=== PATIENT | female | born 1945 | race Caucasian/White ===

== ENCOUNTER 2020-01-21 11:35 | Inpatient (IN) | payer MEDICARE, MEDICAID ==
[2020-01-21 22:59] VITALS: BP 127/64
[2020-01-22] MEDS ORDERED: Magnesium Hydroxide (MOM) 30 mL UDC PO PRN (00:52)
[2020-01-22] MEDS ORDERED: Maalox 30 mL Cup PO PRN (00:52)
--- NOTE | 2020-01-22 08:33 | History and Physical ---
History of Present Illness - HPI Chief Complaint: Increased hallucinations and change in behavior HPI: 74 y/o female who presents to [facility] ER for change in condition with increased hallucinations, attempts to hit staff, and increased agitation noted bu the nursing staff. While in the ER patient had routine labwork done. Patient has a past medical history of unsteady gait, cognitive communication deficit, dementia, schizophrenia, schizoaffective disorder. Patient was subsequently transferred to [facility] for further evaluation and treatment. Vital Signs: Last Vital Signs Temp Pulse Resp BP 127/64 01/21/20 22:59 Pulse Ox Past Medical History Cardiovascular: Report: HTN Pulmonary: Report: No Pertinent Hx YARD CLERK: Report: No Pertinent Hx GI: Report: No Pertinent Hx Psych: Report: Other (unsteady gait, cognitive communication deficit, dementia, schizophrenia, schizoaffective disorder) Musculoskeletal: Report: No Pertinent Hx Rheumatologic: Report: No pertinent Hx Infectious Disease: Report: No Pertinent Hx Renal/: Report: No Pertinent Hx Endocrine: Report: Hypothyroidism Dermatology: Report: No Pertinent Hx - Past Surgical History Past Surgical History: No pertinent Hx Family Medical History - Family Member Mother History Unknown: Yes Father History Unknown: Yes Social History Smoke: No Alcohol: None Drugs: None Lives: [place]-Way Domestic Violence: Negative - Medications Home Medications: Home Medication Medication Instructions Recorded Type Dextran 70/Hypromellose 1 drop OP QID 01/22/20 History [Artificial Tears Eye Drops] Docusate Sodium 100 mg PO BID 01/22/20 History Levothyroxine [Synthroid] 100 mcg PO QDAC 01/22/20 History Metoprolol Tartrate 25 mg PO BID 01/22/20 History OLANZapine [ZyPREXA] 10 mg PO DAILY 01/22/20 History OLANZapine [ZyPREXA] 10 mg PO HS 01/22/20 History - Allergies Allergies/Adverse Reactions: Allergies Allergy/AdvReac Type Severity Reaction Status Date / Time No Known Allergies Allergy Verified 01/21/20 23:04 Review of Systems - Review of Systems Constitutional: Report: No Significant Eyes: Report: No Significant ENT: Report: No Significant Respiratory: Report: No Significant Cardiovascular: Report: No Significant Gastrointestinal: Report: No Significant Genitourinary: Report: No Significant Musculoskeletal: Report: No Significant Skin: Report: No Significant Neurological: Report: No Significant Physical Exam - Physical Exam HEENT: Report: Ears Nose Throat within normal limits, Pharnyx within normal limits Neck: Report: Within normal limits Cardiovascular Systems: Report: +s1/s2 noted, Regular, Rate and Rhythm Respiratory: Report: Breath Sounds are within normal limits, Clear to Auscultation of lung bravo Abdomen: Report: Non-tender to palpation Back: Report: Inspection of back is within normal limits. Extremities: Report: Non-tender to palpation. Skin: Report: Color of skin is within normal limits Neuro/Psych: Report: Mood affect is within normal limits - Assessment Assessment: psychosis hypertension hypothyroidism unsteady gait cognitive communication deficit dementia schizophrenia schizoaffective disorder - Plan Plan: will admit to [facility] for further evaluation and treatment continue current treatment Cranial Nerve Assessment - CRANIAL NERVES alcohol swab:: Yes Distinguishes movements in peripheral field.:: Yes up, down, sideways:: Yes on forehead, cheeks and chin, chews symmetrically:: Yes FACIAL VII: upper: Frowns Symmetrically:: Yes FACIAL VII: Lower: Smiles Symmetrically:: Yes both ears:: Yes GLOSS-PHARYNGEAL IX: Has gag reflex:: Yes VAGUS X: Can make guttural sounds:: Yes ACCESSORY XI: Shrugs shoulders symmetrically:: Yes tremors or fasciculation's:: Yes - MOTOR spasticity, cogwheel, atrophy, tremor, asterixis, other: Yes - COORDINATION Finger to nose, heel to quinteros, PANCHITO, gait, Romberg: Yes - SENSORY signs, Brudzinski, Kernig, neck rigidity:: Yes - REFLEXES Brachioradials Right:: Yes Brachioradials Left:: Yes Biceps Right:: Yes Biceps Left:: Yes Triceps Right:: Yes Triceps Left:: Yes Knee Right:: Yes Knee Left:: Yes Ankle Right:: Yes Ankle Left:: Yes Babinski Right:: Yes Babinski Left:: Yes
--- NOTE | 2020-01-22 13:16 | History & Physical ---
ADMIT DATE: 01/21/2020 IDENTIFYING INFORMATION: The patient is a 74-year-old female. CHIEF COMPLAINT: The patient is rambling. HISTORY OF PRESENT ILLNESS: The patient was sent from [place] because of irritability, agitation and aggressive behavior. The patient came here after getting medically cleared at [facility]. The patient apparently was medicated prior to coming here. The patient was uncooperative, asking the staff to leave her alone. When I tried talk to her, she was rambling, kept talking about [place], unable to be coherent and participate in meaningful conversation. She is a well-known case. We have been seeing her at [place] for the past few weeks and actually we have to adjust her medication twice in the past 2 weeks because of her agitation and paranoia. The patient is a poor historian. PAST PSYCHIATRIC HISTORY: Schizophrenia, schizoaffective disorder, paranoid schizophrenia, cognitive impairment. The patient has been treated before for psychosis and depression, paranoid schizophrenia, behavioral disturbance and dementia. MEDICAL HISTORY: No known drug allergy. She has hypothyroidism, lack of coordination, hypertension, unsteady on her feet. SOCIAL HISTORY: The patient is unable to give much information because of her psychosis and rambling speech. MENTAL STATUS EXAMINATION: The patient is appropriately dressed, not very groomed. She looked disheveled. She was rambling, unable to participate in a meaningful conversation or make safe plan for self-care, unpredictable, impulsive, unable to test her memory, concentration because of her psychosis. She has been acting aggressive, irritable, had to be redirected many times, was acting violent, unable to test her memory, concentration, unable to answer questions regarding suicide and homicide. Her sleep and appetite, according to the staff varies. Her insight about her illness is poor, does not realize she has a problem. poor judgement with her acting out behavior. IMPRESSION: Schizoaffective disorder, bipolar type, cognitive disorder, not otherwise specified. MEDICAL DIAGNOSIS: Deferred to the medical doctor. ASSETS: She is relatively physically healthy. Negative poor coping skills. PLAN: The patient will be continued with the Zyprexa, adjust the dose, adding Depakote. We will do group therapy, milieu therapy, and individual therapy. ESTIMATED LENGTH OF STAY: 3-7 days. DISCHARGE CRITERIA: Decreasing psychosis, agitation. After discharge, outpatient. JOB# [id number] MILEY
[2020-01-23] MEDS: Levothyroxine 0.1 Mg Tab PO SCH (06:35)
--- NOTE | 2020-01-23 13:08 | General Progress Note ---
Subjective - Review of Systems Service Date: 01/23/20 Subjective: Awake, Alert, no acute distress. Objective - Physical Exam Vitals and I&O: Vital Signs Temp Pulse Resp 18 01/23/20 08:00 BP 127/64 01/21/20 22:59 Pulse Ox Intake & Output 01/22/20 01/23/20 01/23/20 18:59 06:59 18:59 Intake Total 960 Balance 960 Intake: Oral 960 Other: # Voids 4 # Bowel Movements 1 Active Medications: Current Medications Acetaminophen (Tylenol) 650 mg PO Q4H PRN PRN Reason: Pain (Mild 1-3) Stop: 03/22/20 00:51 Al Hydrox/Mg Hydrox/Simethicone (Maalox) 30 ml PO Q4HR PRN PRN Reason: GI DISTRESS Stop: 03/22/20 00:51 Levothyroxine Sodium (Synthroid) 0.1 mg PO QDAC [facility] Stop: 03/23/20 07:29 Last Admin: 01/23/20 06:35 Dose: Not Given Lorazepam (Ativan) 0.5 mg PO Q4HR PRN; Protocol PRN Reason: anxiety/agitation Stop: 02/21/20 00:51 Last Admin: 01/23/20 02:27 Dose: 0.5 mg Magnesium Hydroxide (Milk Of Magnesia) 30 ml PO HS PRN PRN Reason: Constipation Metoprolol Tartrate (Lopressor) 25 mg PO BID [facility] Stop: 03/22/20 08:59 Last Admin: 01/23/20 09:18 Dose: Not Given Olanzapine (Zyprexa) 10 mg PO DAILY [facility]; Protocol Stop: 03/22/20 12:44 Last Admin: 01/23/20 09:16 Dose: Not Given Olanzapine (Zyprexa) 10 mg PO HS [facility]; Protocol Stop: 03/22/20 20:59 Last Admin: 01/22/20 20:42 Dose: Not Given Valproate Sodium (Depakene) 250 mg PO BID [facility]; Protocol Stop: 03/22/20 16:59 Last Admin: 01/23/20 09:15 Dose: Not Given General: Alert, No acute distress HEENT: Atraumatic, PERRLA Neck: Supple Cardiovascular: Regular rate, Normal S1, Normal S2 Lungs: Clear to auscultation Abdomen: Bowel sounds, Soft Extremities: no Clubbing, no Cyanosis, no Edema Neurological: Normal gait Assessment/Plan - Assessment Assessment: psychosis hypertension hypothyroidism unsteady gait cognitive communication deficit dementia schizophrenia schizoaffective disorder - Plan Plan: will admit to [facility] for further evaluation and treatment continue current treatment
--- NOTE | 2020-01-23 22:53 | Psych Progress Note ---
Psych Progress Note - Intro Date of Progress Note: 01/23/20 - Assessment Assessment: patient interviewed, case discussed with staff, chart and records were reviewed. patient remains disorganized making delusional odd stateements and refusing treatment including refusing medications. uncooperative with interview. disheveled appearing. poor insight and no plan for care. - Vitals, I&O Vitals: Vital Signs - 24 hr 01/23/20 08:00 RR 18 - Objective Psych General Appearance: Report: Disheveled Psych Behavior: Report: Restless Psych Speech: Report: Mumbled Psych Mood: Report: Angry Psych Affect: Report: Labile Psych Thought Process: Report: Paranoid Psych Cognition: Report: Confused Psych Insight: Report: Impaired Psych Judgement: Report: Impaired - Plan Plan: consider [facility] petition. encouraged medication adherence and gropus. - Review of Relevant Data Review of Relevant Data: I have reviewed the following items and time agnieszka (where applicable) has been applied. - Medications Current Medications: Current Medications Acetaminophen (Tylenol) 650 mg PO Q4H PRN PRN Reason: Pain (Mild 1-3) Stop: 03/22/20 00:51 Al Hydrox/Mg Hydrox/Simethicone (Maalox) 30 ml PO Q4HR PRN PRN Reason: GI DISTRESS Stop: 03/22/20 00:51 Levothyroxine Sodium (Synthroid) 0.1 mg PO QDAC [facility] Stop: 03/23/20 07:29 Last Admin: 01/23/20 06:35 Dose: Not Given Lorazepam (Ativan) 0.5 mg PO Q4HR PRN; Protocol PRN Reason: anxiety/agitation Stop: 02/21/20 00:51 Last Admin: 01/23/20 21:09 Dose: 0.5 mg Magnesium Hydroxide (Milk Of Magnesia) 30 ml PO HS PRN PRN Reason: Constipation Metoprolol Tartrate (Lopressor) 25 mg PO BID [facility] Stop: 03/22/20 08:59 Last Admin: 01/23/20 16:51 Dose: Not Given Olanzapine (Zyprexa) 10 mg PO DAILY COUNTS [facility]CLUDE 234 BEDS AT [facility]; Protocol Stop: 03/22/20 12:44 Last Admin: 01/23/20 09:16 Dose: Not Given Olanzapine (Zyprexa) 10 mg PO HS [facility]; Protocol Stop: 03/22/20 20:59 Last Admin: 01/23/20 21:08 Dose: 10 mg Valproate Sodium (Depakene) 250 mg PO BID COUNTS INCLUDE 234 BEDS AT THE [facility]; Protocol Stop: 03/22/20 16:59 Last Admin: 01/23/20 16:52 Dose: Not Given
[2020-01-24] MEDS: Levothyroxine 0.1 Mg Tab PO SCH (06:46)
--- NOTE | 2020-01-24 07:57 | General Progress Note ---
Subjective - Review of Systems Service Date: 01/24/20 Subjective: Awake, Alert, no acute distress. T 97.2 P 81 R 20 BP 144/70 Objective - Physical Exam Vitals and I&O: Vital Signs Temp 97.2 F 01/24/20 06:10 Pulse 81 01/24/20 06:10 Resp 20 01/24/20 06:10 BP 144/70 01/24/20 06:10 Pulse Ox 99 01/24/20 06:10 Intake & Output 01/23/20 01/24/20 01/24/20 18:59 06:59 18:59 Intake Total 660 Balance 660 Intake: Oral 660 Other: # Voids 1 Active Medications: Current Medications Acetaminophen (Tylenol) 650 mg PO Q4H PRN PRN Reason: Pain (Mild 1-3) Stop: 03/22/20 00:51 Al Hydrox/Mg Hydrox/Simethicone (Maalox) 30 ml PO Q4HR PRN PRN Reason: GI DISTRESS Stop: 03/22/20 00:51 Levothyroxine Sodium (Synthroid) 0.1 mg PO QDAC [facility] Stop: 03/23/20 07:29 Last Admin: 01/24/20 06:46 Dose: Not Given Lorazepam (Ativan) 0.5 mg PO Q4HR PRN; Protocol PRN Reason: anxiety/agitation Stop: 02/21/20 00:51 Last Admin: 01/23/20 21:09 Dose: 0.5 mg Magnesium Hydroxide (Milk Of Magnesia) 30 ml PO HS PRN PRN Reason: Constipation Metoprolol Tartrate (Lopressor) 25 mg PO BID [facility] Stop: 03/22/20 08:59 Last Admin: 01/23/20 16:51 Dose: Not Given Olanzapine (Zyprexa) 10 mg PO DAILY [facility]; Protocol Stop: 03/22/20 12:44 Last Admin: 01/23/20 09:16 Dose: Not Given Olanzapine (Zyprexa) 10 mg PO HS [facility]; Protocol Stop: 03/22/20 20:59 Last Admin: 01/23/20 21:08 Dose: 10 mg Valproate Sodium (Depakene) 250 mg PO BID [facility]; Protocol Stop: 03/22/20 16:59 Last Admin: 01/23/20 16:52 Dose: Not Given General: Alert, No acute distress HEENT: Atraumatic, PERRLA Neck: Supple Cardiovascular: Regular rate, Normal S1, Normal S2 Lungs: Clear to auscultation Abdomen: Bowel sounds, Soft Extremities: no Clubbing, no Cyanosis, no Edema Neurological: Normal gait Assessment/Plan - Assessment Assessment: psychosis hypertension hypothyroidism unsteady gait cognitive communication deficit dementia schizophrenia schizoaffective disorder - Plan Plan: will admit to [facility] for further evaluation and treatment continue current treatment will add Clonidine 0.1mg for BP control.
--- NOTE | 2020-01-24 22:33 | Psych Progress Note ---
Psych Progress Note - Intro Date of Progress Note: 01/24/20 - Assessment Assessment: patient interviewed, case discussed with staff, chart and records were reviewed. patient remains disorganized making delusional odd stateements and refusing treatment including refusing medications. uncooperative with interview. begins cursing at this provider "f*ck you!" disheveled appearing. poor insight and no plan for care. - Vitals, I&O Vitals: Vital Signs - 24 hr 01/24/20 01/24/20 01/24/20 06:10 08:00 10:00 Temp 97.2 F HR 81 74 RR 20 18 BP 144/70 150/60 O2 Sat % 99 01/24/20 01/24/20 14:00 20:32 Temp 98.0 F 98.4 F HR 100 103 RR 20 20 BP 152/82 141/87 O2 Sat % 97 98 - Objective Psych General Appearance: Report: Disheveled Psych Behavior: Report: Restless Psych Speech: Report: Mumbled Psych Mood: Report: Angry Psych Affect: Report: Labile Psych Thought Process: Report: Paranoid Psych Cognition: Report: Confused Psych Insight: Report: Impaired Psych Judgement: Report: Impaired - Plan Plan: 14 day hold. consider [facility] petition. encouraged medication adherence and gropus. - Review of Relevant Data Review of Relevant Data: I have reviewed the following items and time agnieszka (where applicable) has been applied. - Medications Current Medications: Current Medications Acetaminophen (Tylenol) 650 mg PO Q4H PRN PRN Reason: Pain (Mild 1-3) Stop: 03/22/20 00:51 Al Hydrox/Mg Hydrox/Simethicone (Maalox) 30 ml PO Q4HR PRN PRN Reason: GI DISTRESS Stop: 03/22/20 00:51 Levothyroxine Sodium (Synthroid) 0.1 mg PO QDAC [facility] Stop: 03/23/20 07:29 Last Admin: 01/24/20 06:46 Dose: Not Given Lorazepam (Ativan) 0.5 mg PO Q4HR PRN; Protocol PRN Reason: anxiety/agitation Stop: 02/21/20 00:51 Last Admin: 01/24/20 21:00 Dose: 0.5 mg Magnesium Hydroxide (Milk Of Magnesia) 30 ml PO HS PRN PRN Reason: Constipation Metoprolol Tartrate (Lopressor) 25 mg PO BID [facility] Stop: 03/22/20 08:59 Last Admin: 01/24/20 10:00 Dose: Not Given Olanzapine (Zyprexa) 10 mg PO DAILY [facility]; Protocol Stop: 03/22/20 12:44 Last Admin: 01/24/20 10:00 Dose: Not Given Olanzapine (Zyprexa) 10 mg PO HS [facility]; Protocol Stop: 03/22/20 20:59 Last Admin: 01/24/20 20:59 Dose: 10 mg Valproate Sodium (Depakene) 250 mg PO BID [facility]; Protocol Stop: 03/22/20 16:59 Last Admin: 01/24/20 10:00 Dose: Not Given
[2020-01-25] MEDS: Levothyroxine 0.1 Mg Tab PO SCH (06:32)
--- NOTE | 2020-01-25 07:54 | General Progress Note ---
Subjective - Review of Systems Service Date: 01/25/20 Subjective: Awake, Alert, no acute distress. still confused. refusing medication T 97.4 P 81 R 19 BP 145/87 Objective - Physical Exam Vitals and I&O: Vital Signs Temp 97.4 F 01/25/20 06:47 Pulse 81 01/25/20 06:47 Resp 19 01/25/20 06:47 BP 145/87 01/25/20 06:47 Pulse Ox 97 01/25/20 06:47 Intake & Output 01/24/20 01/25/20 01/25/20 18:59 06:59 18:59 Intake Total 900 440 Balance 900 440 Intake: Oral 900 440 Other: # Voids 3 3 # Bowel Movements 1 0 Active Medications: Current Medications Acetaminophen (Tylenol) 650 mg PO Q4H PRN PRN Reason: Pain (Mild 1-3) Stop: 03/22/20 00:51 Al Hydrox/Mg Hydrox/Simethicone (Maalox) 30 ml PO Q4HR PRN PRN Reason: GI DISTRESS Stop: 03/22/20 00:51 Levothyroxine Sodium (Synthroid) 0.1 mg PO QDAC [facility] Stop: 03/23/20 07:29 Last Admin: 01/25/20 06:32 Dose: Not Given Lorazepam (Ativan) 0.5 mg PO Q4HR PRN; Protocol PRN Reason: anxiety/agitation Stop: 02/21/20 00:51 Last Admin: 01/24/20 21:00 Dose: 0.5 mg Magnesium Hydroxide (Milk Of Magnesia) 30 ml PO HS PRN PRN Reason: Constipation Metoprolol Tartrate (Lopressor) 25 mg PO BID [facility] Stop: 03/22/20 08:59 Last Admin: 01/24/20 10:00 Dose: Not Given Olanzapine (Zyprexa) 10 mg PO DAILY [facility]; Protocol Stop: 03/22/20 12:44 Last Admin: 01/24/20 10:00 Dose: Not Given Olanzapine (Zyprexa) 10 mg PO HS [facility]; Protocol Stop: 03/22/20 20:59 Last Admin: 01/24/20 20:59 Dose: 10 mg Valproate Sodium (Depakene) 250 mg PO BID [facility]; Protocol Stop: 03/22/20 16:59 Last Admin: 01/24/20 10:00 Dose: Not Given General: Alert, No acute distress HEENT: Atraumatic, PERRLA Neck: Supple Cardiovascular: Regular rate, Normal S1, Normal S2 Lungs: Clear to auscultation Abdomen: Bowel sounds, Soft Extremities: no Clubbing, no Cyanosis, no Edema Neurological: Normal gait Assessment/Plan - Assessment Assessment: psychosis hypertension slightly elevated hypothyroidism unsteady gait cognitive communication deficit dementia schizophrenia schizoaffective disorder - Plan Plan: will admit to [facility] for further evaluation and treatment continue current treatment
[2020-01-25] MEDS ORDERED: Haloperidol Lactate 5 mg/mL 1mL Vial ONE (13:21)
[2020-01-25] MEDS ORDERED: Haloperidol Lactate 5 mg/mL 1mL Vial IM ONE (13:33)
[2020-01-25] MEDS ORDERED: Haloperidol Lactate 5 mg/mL 1mL Vial IM PRN (13:43)
--- NOTE | 2020-01-26 05:04 | Progress Notes ---
DATE: 01/25/2020 SUBJECTIVE: Case was discussed with staff of the patient, reviewed records. The patient continues to be very irritable, shouting, yelling, screaming. She came after me and I slammed the door after a while when I talking to other patients, she is very intrusive, irritable, paranoid, very disorganized, unable to participate in meaningful conversation, refusing medication. She is refusing so far in the last 2 days. She had to be given emergency medication today because of her agitated, violent behavior. She was given Haldol 5 mg with Benadryl 25. The patient is currently on Zyprexa 10 mg at bedtime and Depakote, valproic acid 250 mg twice a day; however, she has been refusing medication according to the staff, she continues to be agitated and refusing her medication. We will continue outpatient group therapy, milieu therapy, and adjust medications as needed. JOB# [id number] MILEY
[2020-01-26] MEDS: Levothyroxine 0.1 Mg Tab PO SCH (06:32)
--- NOTE | 2020-01-26 07:26 | General Progress Note ---
Subjective - Review of Systems Service Date: 01/26/20 Subjective: Awake, Alert, no acute distress. still confused. refusing medication T 96.9 P 82 R 20 BP 143/66 Objective - Physical Exam Vitals and I&O: Vital Signs Temp 96.9 F 01/26/20 06:19 Pulse 82 01/26/20 06:19 Resp 20 01/26/20 06:19 BP 143/66 01/26/20 06:19 Pulse Ox 99 01/26/20 06:19 Intake & Output 01/25/20 01/26/20 01/26/20 18:59 06:59 18:59 Intake Total 960 560 Balance 960 560 Intake: Oral 960 560 Other: # Voids 3 1 # Bowel Movements 1 Active Medications: Current Medications Acetaminophen (Tylenol) 650 mg PO Q4H PRN PRN Reason: Pain (Mild 1-3) Stop: 03/22/20 00:51 Al Hydrox/Mg Hydrox/Simethicone (Maalox) 30 ml PO Q4HR PRN PRN Reason: GI DISTRESS Stop: 03/22/20 00:51 Diphenhydramine HCl (Benadryl 50 Mg/Ml) 25 mg IM BID PRN PRN Reason: EPS, GIVE WITH HALDOL IM Stop: 03/25/20 13:47 Haloperidol Lactate (Haldol) 5 mg IM BID PRN PRN Reason: Agitation Stop: 03/25/20 13:42 Levothyroxine Sodium (Synthroid) 0.1 mg PO QDAC [facility] Stop: 03/23/20 07:29 Last Admin: 01/26/20 06:32 Dose: Not Given Lorazepam (Ativan) 0.5 mg PO Q4HR PRN; Protocol PRN Reason: anxiety/agitation Stop: 02/21/20 00:51 Last Admin: 01/25/20 20:30 Dose: 0.5 mg Magnesium Hydroxide (Milk Of Magnesia) 30 ml PO HS PRN PRN Reason: Constipation Metoprolol Tartrate (Lopressor) 25 mg PO BID [facility] Stop: 03/22/20 08:59 Last Admin: 01/25/20 18:08 Dose: Not Given Olanzapine (Zyprexa) 10 mg PO DAILY [facility]; Protocol Stop: 03/22/20 12:44 Last Admin: 01/25/20 09:37 Dose: Not Given Olanzapine (Zyprexa) 10 mg PO HS [facility]; Protocol Stop: 03/22/20 20:59 Last Admin: 01/25/20 20:30 Dose: 10 mg Valproate Sodium (Depakene) 250 mg PO BID [facility]; Protocol Stop: 03/22/20 16:59 Last Admin: 01/25/20 18:09 Dose: Not Given General: Alert, No acute distress HEENT: Atraumatic, PERRLA Neck: Supple Cardiovascular: Regular rate, Normal S1, Normal S2 Lungs: Clear to auscultation Abdomen: Bowel sounds, Soft Extremities: no Clubbing, no Cyanosis, no Edema Neurological: Normal gait Assessment/Plan - Assessment Assessment: psychosis hypertension slightly elevated hypothyroidism unsteady gait cognitive communication deficit dementia schizophrenia schizoaffective disorder - Plan Plan: will admit to [facility] for further evaluation and treatment continue current treatment
--- NOTE | 2020-01-26 13:16 | Progress Notes ---
DATE: 01/26/2020 Case was discussed with staff of these records. The patient had to be medicated yesterday on an emergency basis because of her aggressive behavior. The patient end up getting emergency medication later, she is now took her medication. Apparently, the patient will take her medications only from a white person, so it seemed like the staff, so it happens now she is compliant. She is on Zyprexa 10 mg at bedtime and in the morning no side effects with the medication, no sedation, no nausea, no extrapyramidal symptoms. Also, valproic acid was added and we will continue to work with the patient in group therapy, milieu therapy, adjust medication as needed. JOB# [id number]
[2020-01-27] MEDS: Levothyroxine 0.1 Mg Tab PO SCH (06:59)
--- NOTE | 2020-01-27 09:03 | General Progress Note ---
Subjective - Review of Systems Service Date: 01/27/20 Subjective: Awake, Alert, no acute distress. still confused. refusing medication T 96.9 P 82 R 20 BP 143/66 Objective - Physical Exam Vitals and I&O: Vital Signs Temp 0 F 01/27/20 06:08 Pulse 78 01/26/20 20:05 Resp 16 01/27/20 07:58 BP 142/77 01/26/20 20:05 Pulse Ox 95 01/26/20 20:05 Intake & Output 01/26/20 01/27/20 01/27/20 18:59 06:59 18:59 Intake Total 900 240 Balance 900 240 Intake: Oral 900 240 Other: # Voids 3 # Bowel Movements 0 Active Medications: Current Medications Acetaminophen (Tylenol) 650 mg PO Q4H PRN PRN Reason: Pain (Mild 1-3) Stop: 03/22/20 00:51 Al Hydrox/Mg Hydrox/Simethicone (Maalox) 30 ml PO Q4HR PRN PRN Reason: GI DISTRESS Stop: 03/22/20 00:51 Levothyroxine Sodium (Synthroid) 0.1 mg PO QDAC [facility] Stop: 03/23/20 07:29 Last Admin: 01/27/20 06:59 Dose: Not Given Lorazepam (Ativan) 0.5 mg PO Q4HR PRN; Protocol PRN Reason: anxiety/agitation Stop: 02/21/20 00:51 Last Admin: 01/26/20 16:29 Dose: 0.5 mg Magnesium Hydroxide (Milk Of Magnesia) 30 ml PO HS PRN PRN Reason: Constipation Metoprolol Tartrate (Lopressor) 25 mg PO BID [facility] Stop: 03/22/20 08:59 Last Admin: 01/26/20 16:31 Dose: 25 mg Olanzapine (Zyprexa) 10 mg PO DAILY [facility]; Protocol Stop: 03/22/20 12:44 Last Admin: 01/26/20 08:38 Dose: 10 mg Olanzapine (Zyprexa) 10 mg PO HS [facility]; Protocol Stop: 03/22/20 20:59 Last Admin: 01/26/20 20:35 Dose: 10 mg Valproate Sodium (Depakene) 250 mg PO BID [facility]; Protocol Stop: 03/22/20 16:59 Last Admin: 01/26/20 16:29 Dose: 250 mg General: Alert, No acute distress HEENT: Atraumatic, PERRLA Neck: Supple Cardiovascular: Regular rate, Normal S1, Normal S2 Lungs: Clear to auscultation Abdomen: Bowel sounds, Soft Extremities: no Clubbing, no Cyanosis, no Edema Neurological: Normal gait Assessment/Plan - Assessment Assessment: psychosis hypertension slightly elevated hypothyroidism unsteady gait cognitive communication deficit dementia schizophrenia schizoaffective disorder - Plan Plan: will admit to [facility] for further evaluation and treatment continue current treatment Nutritional Asmnt/Malnutr-PDOC - Dietary Evaluation Malnutrition Findings (Please click <Entered> for more info): Nutritional Asmnt/Malnutrition Start: 01/26/20 14: 36 Text: Status: Complete Freq: Protocol: Document 01/26/20 14:36 SHALOM (Rec: 01/26/20 14:51 SHALOM [id number]) Nutritional Asmnt/Malnutrition Patient General Information Nutritional Screening Low Risk Diagnosis Psychosis Pertinent Medical Hx/Surgical Hx Hypothyroidism, lack of coordination, hypertension, unsteady on feet. Subjective Information Pt is a 74-year-old female admitted on d/t agitation, irritability, and aggressive behavior. Pt is eating an estimated 77% of meals Per Meal/Nutrition Activity Record. Dietary is currently providing an estimated 2300 kcals and 106 gm Pro, per Pt PO intake this is providing an estimated 1770 kcals and 82 gm Pro to meet 100+% kcal and 100+% Pro needs . Per Meal/Nutrition Activity report, pt. refused breakfast and lunch 01/24 but ate 100% of dinner. Per nurse Negin note (01/24), pt. also refused medication and was noted with non-directable behavior, hyperverbal and confused Pt s refusal of meals morning of 01/24 possibly related to notes paranoid behavior. Pt was asleep in room at time of visit. Christy seen pt roaming the halls in passing, very active and talkative. Anthropometrics HT: 54 WT: 136 LB (61.81 kg) BMI: 23.49 (Normal) GI/ Skin Integrity GI: WNL, Soft, Flat, Non- tender BM: 01/24 x4 I/O: 1520/Not Noted Skin: WNL, Intact Timoteo: 17 Diet Order: Chopped, LOI Estimated Energy Needs: ( Geriatric, CBW) 8207-9187 kcals (25-30 kcals/ kg) 60-75g Pro (1.0-1.2 g/kg) 3012-9021 ml (25-30 ml/kg) Current Diet Order/ Nutrition Support Chopped, LOI Pertinent Medications Maalox (PRN), Synthroid, MOM ( PRN), Lopressor Pertinent Labs 01/20: A1C 6.1%, Glucose 119, K 3.2, T Pro 6.0 Nutritional Hx/Data Height 1.63 m Height (Calculated Centimeters) 162.6 Current Weight (lbs) 62.142 kg Weight (Calculated Kilograms) 62.1 Weight (Calculated Grams) 04963.2 [place] Body Weight 120 LB % [place] Body Weight 113 Body Mass Index (BMI) 23.5 Weight Status Approriate GI Symptoms GI Symptoms None Last BM 01/24 x4 Skin Integrity/Comment: Skin: WNL, Intact Timoteo: 17 Current %PO Good (75-100%) Estimated Nutritional Goals BEE in Kcals: Using Current wt Calories/Kcals/Kg 25-30 Kcals Calculated 9090-7935 Protein: Using Current wt Protein g/k.0-1.2 Protein Calculated 60-75 Fluid: ml 7241-5506 ml (25-30 ml/kg) Nutritional Problem 1. Problem Problem Altered nutrition-related lab values Etiology related to endocrinopathy Signs/Symptoms: as evidenced by labs (01/20 A1C 6.1%). Malnutrition Related to Morbid Obesity Malnutrition related to morbid obesity No Intervention/Recommendation Comments Continue Chopped, LOI diet as tolerated. Expected Outcomes/Goals Expected Outcomes/Goals 1.PO intake to continue to meet 75% of estimated nutritional needs. 2.Monitor PO intake, wt, nutrition related labs, and skin integrity. 3.F/U as low risk in 7-10 days , 02/01-02/04.
--- NOTE | 2020-01-27 21:35 | Progress Notes ---
DATE: 01/27/2020 Case was discussed with staff of the patient, reviewed records. The patient has been taking her medication and resuming is given by in person. The patient continues to be internally preoccupied, irritable, labile, talking to herself, unpredictable, impulsive, needing redirection. She has been compliant with the medication with no side effects, no sedation, no nausea, no extrapyramidal symptoms. She seems to be a little bit calmer now that she is taking the medication; however, she continues to be paranoid and delusional. No side effects with the medication, no sedation, no nausea, no extrapyramidal symptoms. We will continue outpatient group therapy, milieu therapy, and adjust medications as needed. JOB# [id number]
[2020-01-28] MEDS: Levothyroxine 0.1 Mg Tab PO SCH (07:25)
--- NOTE | 2020-01-28 11:56 | General Progress Note ---
Subjective - Review of Systems Service Date: 01/28/20 Subjective: Awake, Alert, no acute distress. still confused. refusing medication T 97.9 P 114 R 20 BP 162/85 Objective - Physical Exam Vitals and I&O: Vital Signs Temp 97.9 F 01/28/20 06:25 Pulse 114 01/28/20 08:44 Resp 16 01/28/20 08:00 BP 162/85 01/28/20 08:44 Pulse Ox 96 01/28/20 06:25 Intake & Output 01/27/20 01/28/20 01/28/20 18:59 06:59 18:59 Intake Total 800 120 Balance 800 120 Intake: Oral 800 120 Other: # Voids 4 1 # Bowel Movements 0 0 Active Medications: Current Medications Acetaminophen (Tylenol) 650 mg PO Q4H PRN PRN Reason: Pain (Mild 1-3) Stop: 03/22/20 00:51 Al Hydrox/Mg Hydrox/Simethicone (Maalox) 30 ml PO Q4HR PRN PRN Reason: GI DISTRESS Stop: 03/22/20 00:51 Levothyroxine Sodium (Synthroid) 0.1 mg PO QDAC [facility] Stop: 03/23/20 07:29 Last Admin: 01/28/20 07:25 Dose: Not Given Lorazepam (Ativan) 0.5 mg PO Q4HR PRN; Protocol PRN Reason: anxiety/agitation Stop: 02/21/20 00:51 Last Admin: 01/26/20 16:29 Dose: 0.5 mg Magnesium Hydroxide (Milk Of Magnesia) 30 ml PO HS PRN PRN Reason: Constipation Metoprolol Tartrate (Lopressor) 25 mg PO BID [facility] Stop: 03/22/20 08:59 Last Admin: 01/28/20 08:44 Dose: 25 mg Olanzapine (Zyprexa) 10 mg PO DAILY [facility]; Protocol Stop: 03/22/20 12:44 Last Admin: 01/28/20 08:45 Dose: 10 mg Olanzapine (Zyprexa) 10 mg PO HS [facility]; Protocol Stop: 03/22/20 20:59 Last Admin: 01/27/20 21:10 Dose: 10 mg Valproate Sodium (Depakene) 250 mg PO BID [facility]; Protocol Stop: 03/22/20 16:59 Last Admin: 01/28/20 08:43 Dose: 250 mg General: Alert, No acute distress HEENT: Atraumatic, PERRLA Neck: Supple Cardiovascular: Regular rate, Normal S1, Normal S2 Lungs: Clear to auscultation Abdomen: Bowel sounds, Soft Extremities: no Clubbing, no Cyanosis, no Edema Neurological: Normal gait Assessment/Plan - Assessment Assessment: psychosis hypertension elevated hypothyroidism unsteady gait cognitive communication deficit dementia schizophrenia schizoaffective disorder - Plan Plan: will admit to [facility] for further evaluation and treatment continue current treatment add clonidine prn start norvasc 5mg po daily Nutritional Asmnt/Malnutr-PDOC - Dietary Evaluation Malnutrition Findings (Please click <Entered> for more info): Nutritional Asmnt/Malnutrition Start: 01/26/20 14: 36 Text: Status: Complete Freq: Protocol: Document 01/26/20 14:36 SHALOM (Rec: 01/26/20 14:51 SHALOM [id number]) Nutritional Asmnt/Malnutrition Patient General Information Nutritional Screening Low Risk Diagnosis Psychosis Pertinent Medical Hx/Surgical Hx Hypothyroidism, lack of coordination, hypertension, unsteady on feet. Subjective Information Pt is a 74-year-old female admitted on d/t agitation, irritability, and aggressive behavior. Pt is eating an estimated 77% of meals Per Meal/Nutrition Activity Record. Dietary is currently providing an estimated 2300 kcals and 106 gm Pro, per Pt PO intake this is providing an estimated 1770 kcals and 82 gm Pro to meet 100+% kcal and 100+% Pro needs . Per Meal/Nutrition Activity report, pt. refused breakfast and lunch 01/24 but ate 100% of dinner. Per nurse Negin note (01/24), pt. also refused medication and was noted with non-directable behavior, hyperverbal and confused Pt s refusal of meals morning of 01/24 possibly related to notes paranoid behavior. Pt was asleep in room at time of visit. Christy seen pt roaming the halls in passing, very active and talkative. Anthropometrics HT: 54 WT: 136 LB (61.81 kg) BMI: 23.49 (Normal) GI/ Skin Integrity GI: WNL, Soft, Flat, Non- tender BM: 01/24 x4 I/O: 1520/Not Noted Skin: WNL, Intact Timoteo: 17 Diet Order: Chopped, LOI Estimated Energy Needs: ( Geriatric, CBW) 4620-7816 kcals (25-30 kcals/ kg) 60-75g Pro (1.0-1.2 g/kg) 0176-3204 ml (25-30 ml/kg) Current Diet Order/ Nutrition Support Chopped, LOI Pertinent Medications Maalox (PRN), Synthroid, MOM ( PRN), Lopressor Pertinent Labs 01/20: A1C 6.1%, Glucose 119, K 3.2, T Pro 6.0 Nutritional Hx/Data Height 1.63 m Height (Calculated Centimeters) 162.6 Current Weight (lbs) 62.142 kg Weight (Calculated Kilograms) 62.1 Weight (Calculated Grams) 70414.2 [place] Body Weight 120 LB % [place] Body Weight 113 Body Mass Index (BMI) 23.5 Weight Status Approriate GI Symptoms GI Symptoms None Last BM 01/24 x4 Skin Integrity/Comment: Skin: WNL, Intact Timoteo: 17 Current %PO Good (75-100%) Estimated Nutritional Goals BEE in Kcals: Using Current wt Calories/Kcals/Kg 25-30 Kcals Calculated 6449-8945 Protein: Using Current wt Protein g/k.0-1.2 Protein Calculated 60-75 Fluid: ml 6551-4999 ml (25-30 ml/kg) Nutritional Problem 1. Problem Problem Altered nutrition-related lab values Etiology related to endocrinopathy Signs/Symptoms: as evidenced by labs (01/20 A1C 6.1%). Malnutrition Related to Morbid Obesity Malnutrition related to morbid obesity No Intervention/Recommendation Comments Continue Chopped, LOI diet as tolerated. Expected Outcomes/Goals Expected Outcomes/Goals 1.PO intake to continue to meet 75% of estimated nutritional needs. 2.Monitor PO intake, wt, nutrition related labs, and skin integrity. 3.F/U as low risk in 7-10 days , 02/01-02/04.
--- NOTE | 2020-01-28 14:01 | Progress Notes ---
DATE: 01/28/2020 FOLLOWUP PROGRESS NOTE Case was discussed with staff of the patient, reviewed records. The patient refused medication last night; however, sometimes she takes it, so I cannot release her yet. The patient continues to be unpredictable, impulsive, easily agitated, unable to make safe plan for self-care or participate in meaningful conversation. No side effects with the medication, no sedation, no nausea, no extrapyramidal symptoms and I added Depakote to her. We will continue to work with the patient in group therapy, milieu therapy and adjust the medication as needed. JOB# [id number]
[2020-01-29] MEDS: Levothyroxine 0.1 Mg Tab PO SCH (06:32)
--- NOTE | 2020-01-29 13:52 | Progress Notes ---
DATE: 01/29/2020 Case was discussed with staff of the patient, reviewed records. The patient is taking her medication. Continues to be irritable, continues to be acting bizarre, internally preoccupied. Continues to be unable to make safe plan for self-care, unpredictable, impulsive, needing redirection. I will be increasing her Zyprexa to 12.5 mg at bedtime. No side effects with the medication, no sedation, no nausea, no extrapyramidal symptoms and will continue to have constricted affect, angry aspect. Continues to be unpredictable, impulsive. Will continue outpatient group therapy, milieu therapy, and adjust medications as needed. JOB# [id number]
--- NOTE | 2020-01-29 17:24 | General Progress Note ---
Subjective - Review of Systems Service Date: 01/29/20 Subjective: Awake, Alert, no acute distress. still confused. refusing medication T 97.9 P 62 R 20 BP 116/62 Objective - Physical Exam Vitals and I&O: Vital Signs Temp 98.5 F 01/29/20 06:38 Pulse 62 01/29/20 17:08 Resp 20 01/29/20 06:38 BP 116/62 01/29/20 17:08 Pulse Ox 100 01/29/20 06:38 Intake & Output 01/28/20 01/29/20 01/29/20 18:59 06:59 18:59 Intake Total 800 120 Balance 800 120 Intake: Oral 800 120 Other: # Voids 4 3 # Bowel Movements 1 Active Medications: Current Medications Acetaminophen (Tylenol) 650 mg PO Q4H PRN PRN Reason: Pain (Mild 1-3) Stop: 03/22/20 00:51 Al Hydrox/Mg Hydrox/Simethicone (Maalox) 30 ml PO Q4HR PRN PRN Reason: GI DISTRESS Stop: 03/22/20 00:51 Amlodipine Besylate (Norvasc) 5 mg PO DAILY [facility] Stop: 03/29/20 08:59 Last Admin: 01/29/20 09:19 Dose: 5 mg Levothyroxine Sodium (Synthroid) 0.1 mg PO QDAC [facility] Stop: 03/23/20 07:29 Last Admin: 01/29/20 06:32 Dose: Not Given Lorazepam (Ativan) 0.5 mg PO Q4HR PRN; Protocol PRN Reason: anxiety/agitation Stop: 02/21/20 00:51 Last Admin: 01/26/20 16:29 Dose: 0.5 mg Magnesium Hydroxide (Milk Of Magnesia) 30 ml PO HS PRN PRN Reason: Constipation Metoprolol Tartrate (Lopressor) 25 mg PO BID [facility] Stop: 03/22/20 08:59 Last Admin: 01/29/20 17:08 Dose: 25 mg Olanzapine (Zyprexa) 10 mg PO DAILY [facility]; Protocol Stop: 03/22/20 12:44 Last Admin: 01/29/20 09:19 Dose: 10 mg Olanzapine 10 mg/ Olanzapine 2 (.5 mg) 12.5 mg PO HS [facility] Stop: 03/29/20 20:59 Valproate Sodium (Depakene) 250 mg PO BID [facility]; Protocol Stop: 03/22/20 16:59 Last Admin: 01/29/20 17:06 Dose: 250 mg General: Alert, No acute distress HEENT: Atraumatic, PERRLA Neck: Supple Cardiovascular: Regular rate, Normal S1, Normal S2 Lungs: Clear to auscultation Abdomen: Bowel sounds, Soft Extremities: no Clubbing, no Cyanosis, no Edema Neurological: Normal gait Assessment/Plan - Assessment Assessment: psychosis hypertension improving hypothyroidism unsteady gait cognitive communication deficit dementia schizophrenia schizoaffective disorder - Plan Plan: will admit to [facility] for further evaluation and treatment continue current treatment add clonidine prn start norvasc 5mg po daily Nutritional Asmnt/Malnutr-PDOC - Dietary Evaluation Malnutrition Findings (Please click <Entered> for more info): Nutritional Asmnt/Malnutrition Start: 01/26/20 14: 36 Text: Status: Complete Freq: Protocol: Document 01/26/20 14:36 SHALOM (Rec: 01/26/20 14:51 SHALOM [id number]) Nutritional Asmnt/Malnutrition Patient General Information Nutritional Screening Low Risk Diagnosis Psychosis Pertinent Medical Hx/Surgical Hx Hypothyroidism, lack of coordination, hypertension, unsteady on feet. Subjective Information Pt is a 74-year-old female admitted on d/t agitation, irritability, and aggressive behavior. Pt is eating an estimated 77% of meals Per Meal/Nutrition Activity Record. Dietary is currently providing an estimated 2300 kcals and 106 gm Pro, per Pt PO intake this is providing an estimated 1770 kcals and 82 gm Pro to meet 100+% kcal and 100+% Pro needs . Per Meal/Nutrition Activity report, pt. refused breakfast and lunch 01/24 but ate 100% of dinner. Per nurse Negin note (01/24), pt. also refused medication and was noted with non-directable behavior, hyperverbal and confused Pt s refusal of meals morning of 01/24 possibly related to notes paranoid behavior. Pt was asleep in room at time of visit. Christy seen pt roaming the halls in passing, very active and talkative. Anthropometrics HT: 54 WT: 136 LB (61.81 kg) BMI: 23.49 (Normal) GI/ Skin Integrity GI: WNL, Soft, Flat, Non- tender BM: 01/24 x4 I/O: 1520/Not Noted Skin: WNL, Intact Timoteo: 17 Diet Order: Chopped, LOI Estimated Energy Needs: ( Geriatric, CBW) 5943-3927 kcals (25-30 kcals/ kg) 60-75g Pro (1.0-1.2 g/kg) 0957-8388 ml (25-30 ml/kg) Current Diet Order/ Nutrition Support Chopped, LOI Pertinent Medications Maalox (PRN), Synthroid, MOM ( PRN), Lopressor Pertinent Labs 01/20: A1C 6.1%, Glucose 119, K 3.2, T Pro 6.0 Nutritional Hx/Data Height 1.63 m Height (Calculated Centimeters) 162.6 Current Weight (lbs) 62.142 kg Weight (Calculated Kilograms) 62.1 Weight (Calculated Grams) 08479.2 [place] Body Weight 120 LB % [place] Body Weight 113 Body Mass Index (BMI) 23.5 Weight Status Approriate GI Symptoms GI Symptoms None Last BM 01/24 x4 Skin Integrity/Comment: Skin: WNL, Intact Timoteo: 17 Current %PO Good (75-100%) Estimated Nutritional Goals BEE in Kcals: Using Current wt Calories/Kcals/Kg 25-30 Kcals Calculated 6527-6030 Protein: Using Current wt Protein g/k.0-1.2 Protein Calculated 60-75 Fluid: ml 1985-1106 ml (25-30 ml/kg) Nutritional Problem 1. Problem Problem Altered nutrition-related lab values Etiology related to endocrinopathy Signs/Symptoms: as evidenced by labs (01/20 A1C 6.1%). Malnutrition Related to Morbid Obesity Malnutrition related to morbid obesity No Intervention/Recommendation Comments Continue Chopped, LOI diet as tolerated. Expected Outcomes/Goals Expected Outcomes/Goals 1.PO intake to continue to meet 75% of estimated nutritional needs. 2.Monitor PO intake, wt, nutrition related labs, and skin integrity. 3.F/U as low risk in 7-10 days , 02/01-02/04.
--- NOTE | 2020-01-30 06:46 | General Progress Note ---
Subjective - Review of Systems Service Date: 01/30/20 Subjective: Awake, Alert, no acute distress. still confused. refusing medication T 97.9 P 62 R 20 BP 116/62 Objective - Physical Exam Vitals and I&O: Vital Signs Temp 98.5 F 01/29/20 06:38 Pulse 62 01/29/20 17:08 Resp 20 01/29/20 06:38 BP 116/62 01/29/20 17:08 Pulse Ox 100 01/29/20 06:38 Intake & Output 01/29/20 01/29/20 01/30/20 06:59 18:59 06:59 Intake Total 120 1000 Balance 120 1000 Intake: Oral 120 1000 Other: # Voids 3 4 # Bowel Movements 0 Active Medications: Current Medications Acetaminophen (Tylenol) 650 mg PO Q4H PRN PRN Reason: Pain (Mild 1-3) Stop: 03/22/20 00:51 Al Hydrox/Mg Hydrox/Simethicone (Maalox) 30 ml PO Q4HR PRN PRN Reason: GI DISTRESS Stop: 03/22/20 00:51 Amlodipine Besylate (Norvasc) 5 mg PO DAILY [facility] Stop: 03/29/20 08:59 Last Admin: 01/29/20 09:19 Dose: 5 mg Levothyroxine Sodium (Synthroid) 0.1 mg PO QDAC [facility] Stop: 03/23/20 07:29 Last Admin: 01/29/20 06:32 Dose: Not Given Lorazepam (Ativan) 0.5 mg PO Q4HR PRN; Protocol PRN Reason: anxiety/agitation Stop: 02/21/20 00:51 Last Admin: 01/26/20 16:29 Dose: 0.5 mg Magnesium Hydroxide (Milk Of Magnesia) 30 ml PO HS PRN PRN Reason: Constipation Metoprolol Tartrate (Lopressor) 25 mg PO BID [facility] Stop: 03/22/20 08:59 Last Admin: 01/29/20 17:08 Dose: 25 mg Olanzapine (Zyprexa) 10 mg PO DAILY [facility]; Protocol Stop: 03/22/20 12:44 Last Admin: 01/29/20 09:19 Dose: 10 mg Olanzapine 10 mg/ Olanzapine 2 (.5 mg) 12.5 mg PO HS [facility] Stop: 03/29/20 20:59 Last Admin: 01/29/20 21:09 Dose: 12.5 mg Valproate Sodium (Depakene) 250 mg PO BID [facility]; Protocol Stop: 03/22/20 16:59 Last Admin: 01/29/20 17:06 Dose: 250 mg General: Alert, No acute distress HEENT: Atraumatic, PERRLA Neck: Supple Cardiovascular: Regular rate, Normal S1, Normal S2 Lungs: Clear to auscultation Abdomen: Bowel sounds, Soft Extremities: no Clubbing, no Cyanosis, no Edema Neurological: Normal gait Assessment/Plan - Assessment Assessment: psychosis hypertension improving hypothyroidism unsteady gait cognitive communication deficit dementia schizophrenia schizoaffective disorder - Plan Plan: will admit to [facility] for further evaluation and treatment continue current treatment add clonidine prn start norvasc 5mg po daily Nutritional Asmnt/Malnutr-PDOC - Dietary Evaluation Malnutrition Findings (Please click <Entered> for more info): Nutritional Asmnt/Malnutrition Start: 01/26/20 14: 36 Text: Status: Complete Freq: Protocol: Document 01/26/20 14:36 SHALOM (Rec: 01/26/20 14:51 SHALOM [id number]) Nutritional Asmnt/Malnutrition Patient General Information Nutritional Screening Low Risk Diagnosis Psychosis Pertinent Medical Hx/Surgical Hx Hypothyroidism, lack of coordination, hypertension, unsteady on feet. Subjective Information Pt is a 74-year-old female admitted on d/t agitation, irritability, and aggressive behavior. Pt is eating an estimated 77% of meals Per Meal/Nutrition Activity Record. Dietary is currently providing an estimated 2300 kcals and 106 gm Pro, per Pt PO intake this is providing an estimated 1770 kcals and 82 gm Pro to meet 100+% kcal and 100+% Pro needs . Per Meal/Nutrition Activity report, pt. refused breakfast and lunch 01/24 but ate 100% of dinner. Per nurse Negin note (01/24), pt. also refused medication and was noted with non-directable behavior, hyperverbal and confused Pt s refusal of meals morning of 01/24 possibly related to notes paranoid behavior. Pt was asleep in room at time of visit. Christy seen pt roaming the halls in passing, very active and talkative. Anthropometrics HT: 54 WT: 136 LB (61.81 kg) BMI: 23.49 (Normal) GI/ Skin Integrity GI: WNL, Soft, Flat, Non- tender BM: 01/24 x4 I/O: 1520/Not Noted Skin: WNL, Intact Timoteo: 17 Diet Order: Chopped, LOI Estimated Energy Needs: ( Geriatric, CBW) 1618-0668 kcals (25-30 kcals/ kg) 60-75g Pro (1.0-1.2 g/kg) 3185-4369 ml (25-30 ml/kg) Current Diet Order/ Nutrition Support Chopped, LOI Pertinent Medications Maalox (PRN), Synthroid, MOM ( PRN), Lopressor Pertinent Labs 01/20: A1C 6.1%, Glucose 119, K 3.2, T Pro 6.0 Nutritional Hx/Data Height 1.63 m Height (Calculated Centimeters) 162.6 Current Weight (lbs) 62.142 kg Weight (Calculated Kilograms) 62.1 Weight (Calculated Grams) 15746.2 [place] Body Weight 120 LB % [place] Body Weight 113 Body Mass Index (BMI) 23.5 Weight Status Approriate GI Symptoms GI Symptoms None Last BM 01/24 x4 Skin Integrity/Comment: Skin: WNL, Intact Timoteo: 17 Current %PO Good (75-100%) Estimated Nutritional Goals BEE in Kcals: Using Current wt Calories/Kcals/Kg 25-30 Kcals Calculated 7574-1189 Protein: Using Current wt Protein g/k.0-1.2 Protein Calculated 60-75 Fluid: ml 4930-9712 ml (25-30 ml/kg) Nutritional Problem 1. Problem Problem Altered nutrition-related lab values Etiology related to endocrinopathy Signs/Symptoms: as evidenced by labs (01/20 A1C 6.1%). Malnutrition Related to Morbid Obesity Malnutrition related to morbid obesity No Intervention/Recommendation Comments Continue Chopped, LOI diet as tolerated. Expected Outcomes/Goals Expected Outcomes/Goals 1.PO intake to continue to meet 75% of estimated nutritional needs. 2.Monitor PO intake, wt, nutrition related labs, and skin integrity. 3.F/U as low risk in 7-10 days , 02/01-02/04.
[2020-01-30] MEDS: Levothyroxine 0.1 Mg Tab PO SCH (06:58)
--- NOTE | 2020-01-31 02:25 | Progress Notes ---
DATE: 01/30/[address] Shipley. IDENTIFYING DATA: A 74-year-old female brought in here from [facility] for irritability, agitation, disorganized. Today on [id number] evaluation, the patient ____ chair, responding heavily, in the corner talking to herself and attempt to redirect her, she becomes more irritable and she finds herself easily disengaged and distraught. Recent increase of Zyprexa has been tolerated, 12.5. No complications. Reconciliation of medications, reviewed, include Ativan as needed, olanzapine 10 mg in the morning and 12.5 at nighttime with Depakote. We will continue with primary psychiatrist's treatment plan and goals as she continues to present very psychotic as evident by hearing voices and responding ____ corner. Medication was recently increased without complications. JOB# [id number]
[2020-01-31] MEDS: Levothyroxine 0.1 Mg Tab PO SCH (06:51)
--- NOTE | 2020-01-31 20:47 | Progress Notes ---
DATE: 01/31/2020 SUBJECTIVE: Today on [id number] evaluation, "__fuck__ off, you evil, ___get_ away." MENTAL STATUS EXAMINATION: Delusional, responded heavily in the corner and upon approach ____. ASSESSMENT AND PLAN: Schizophrenic, responded heavily on voices. We will continue with the recent augmentation of trazodone. Per the returning physician, trazodone was added to target the patient's insomnia. JOB# [id number] MILEY
[2020-02-01] MEDS: Levothyroxine 0.1 Mg Tab PO SCH (06:59)
--- NOTE | 2020-02-01 07:42 | General Progress Note ---
Subjective - Review of Systems Service Date: 01/31/20 Subjective: Awake, Alert, no acute distress. still confused. refusing medication T 96.7 P 60 R 20 BP 102/66 Objective - Physical Exam Vitals and I&O: Vital Signs Temp 96.7 F 02/01/20 06:19 Pulse 74 02/01/20 06:19 Resp 18 02/01/20 06:19 BP 139/78 02/01/20 06:19 Pulse Ox 99 02/01/20 06:19 Intake & Output 01/31/20 02/01/20 02/01/20 18:59 06:59 18:59 Intake Total 800 240 Balance 800 240 Intake: Oral 800 240 Other: # Voids 4 2 # Bowel Movements 0 Active Medications: Current Medications Acetaminophen (Tylenol) 650 mg PO Q4H PRN PRN Reason: Pain (Mild 1-3) Stop: 03/22/20 00:51 Al Hydrox/Mg Hydrox/Simethicone (Maalox) 30 ml PO Q4HR PRN PRN Reason: GI DISTRESS Stop: 03/22/20 00:51 Amlodipine Besylate (Norvasc) 5 mg PO DAILY [facility] Stop: 03/29/20 08:59 Last Admin: 01/31/20 08:53 Dose: 5 mg Levothyroxine Sodium (Synthroid) 0.1 mg PO QDAC [facility] Stop: 03/23/20 07:29 Last Admin: 02/01/20 06:59 Dose: Not Given Lorazepam (Ativan) 0.5 mg PO Q4HR PRN; Protocol PRN Reason: anxiety/agitation Stop: 02/21/20 00:51 Last Admin: 01/31/20 23:31 Dose: 0.5 mg Magnesium Hydroxide (Milk Of Magnesia) 30 ml PO HS PRN PRN Reason: Constipation Metoprolol Tartrate (Lopressor) 25 mg PO BID [facility] Stop: 03/22/20 08:59 Last Admin: 01/31/20 16:44 Dose: Not Given Olanzapine (Zyprexa) 10 mg PO DAILY [facility]; Protocol Stop: 03/22/20 12:44 Last Admin: 01/31/20 08:55 Dose: 10 mg Olanzapine 10 mg/ Olanzapine 2 (.5 mg) 12.5 mg PO HS [facility] Stop: 03/29/20 20:59 Last Admin: 01/31/20 21:53 Dose: 12.5 mg Trazodone HCl (Desyrel) 50 mg PO HS EARLINE; Protocol Stop: 03/30/20 20:59 Last Admin: 01/31/20 21:53 Dose: 50 mg Valproate Sodium (Depakene) 250 mg PO BID [facility]AR[facility]; Protocol Stop: 03/22/20 16:59 Last Admin: 01/31/20 16:43 Dose: 250 mg General: Alert, No acute distress HEENT: Atraumatic, PERRLA Neck: Supple Cardiovascular: Regular rate, Normal S1, Normal S2 Lungs: Clear to auscultation Abdomen: Bowel sounds, Soft Extremities: no Clubbing, no Cyanosis, no Edema Neurological: Normal gait Assessment/Plan - Assessment Assessment: psychosis hypertension controlled hypothyroidism unsteady gait cognitive communication deficit dementia schizophrenia schizoaffective disorder - Plan Plan: will admit to [facility] for further evaluation and treatment continue current treatment add clonidine prn start norvasc 5mg po daily Nutritional Asmnt/Malnutr-PDOC - Dietary Evaluation Malnutrition Findings (Please click <Entered> for more info): Nutritional Asmnt/Malnutrition Start: 01/26/20 14: 36 Text: Status: Complete Freq: Protocol: Document 01/26/20 14:36 SHALOM (Rec: 01/26/20 14:51 SHALOM [id number]) Nutritional Asmnt/Malnutrition Patient General Information Nutritional Screening Low Risk Diagnosis Psychosis Pertinent Medical Hx/Surgical Hx Hypothyroidism, lack of coordination, hypertension, unsteady on feet. Subjective Information Pt is a 74-year-old female admitted on d/t agitation, irritability, and aggressive behavior. Pt is eating an estimated 77% of meals Per Meal/Nutrition Activity Record. Dietary is currently providing an estimated 2300 kcals and 106 gm Pro, per Pt PO intake this is providing an estimated 1770 kcals and 82 gm Pro to meet 100+% kcal and 100+% Pro needs . Per Meal/Nutrition Activity report, pt. refused breakfast and lunch 01/24 but ate 100% of dinner. Per nurse Negin note (01/24), pt. also refused medication and was noted with non-directable behavior, hyperverbal and confused Pt s refusal of meals morning of 01/24 possibly related to notes paranoid behavior. Pt was asleep in room at time of visit. Christy seen pt roaming the halls in passing, very active and talkative. Anthropometrics HT: 54 WT: 136 LB (61.81 kg) BMI: 23.49 (Normal) GI/ Skin Integrity GI: WNL, Soft, Flat, Non- tender BM: 01/24 x4 I/O: 1520/Not Noted Skin: WNL, Intact Timoteo: 17 Diet Order: Chopped, LOI Estimated Energy Needs: ( Geriatric, CBW) 9913-3825 kcals (25-30 kcals/ kg) 60-75g Pro (1.0-1.2 g/kg) 0108-8812 ml (25-30 ml/kg) Current Diet Order/ Nutrition Support Chopped, LOI Pertinent Medications Maalox (PRN), Synthroid, MOM ( PRN), Lopressor Pertinent Labs 01/20: A1C 6.1%, Glucose 119, K 3.2, T Pro 6.0 Nutritional Hx/Data Height 1.63 m Height (Calculated Centimeters) 162.6 Current Weight (lbs) 62.142 kg Weight (Calculated Kilograms) 62.1 Weight (Calculated Grams) 08727.2 [place] Body Weight 120 LB % [place] Body Weight 113 Body Mass Index (BMI) 23.5 Weight Status Approriate GI Symptoms GI Symptoms None Last BM 01/24 x4 Skin Integrity/Comment: Skin: WNL, Intact Timoteo: 17 Current %PO Good (75-100%) Estimated Nutritional Goals BEE in Kcals: Using Current wt Calories/Kcals/Kg 25-30 Kcals Calculated 3733-5328 Protein: Using Current wt Protein g/k.0-1.2 Protein Calculated 60-75 Fluid: ml 6360-3386 ml (25-30 ml/kg) Nutritional Problem 1. Problem Problem Altered nutrition-related lab values Etiology related to endocrinopathy Signs/Symptoms: as evidenced by labs (01/20 A1C 6.1%). Malnutrition Related to Morbid Obesity Malnutrition related to morbid obesity No Intervention/Recommendation Comments Continue Chopped, LOI diet as tolerated. Expected Outcomes/Goals Expected Outcomes/Goals 1.PO intake to continue to meet 75% of estimated nutritional needs. 2.Monitor PO intake, wt, nutrition related labs, and skin integrity. 3.F/U as low risk in 7-10 days , 02/01-02/04.
--- NOTE | 2020-02-01 07:43 | General Progress Note ---
Subjective - Review of Systems Service Date: 02/01/20 Subjective: Awake, Alert, no acute distress. still confused. refusing medication T 96.7 P 74 R 18 BP 139/78 Objective - Physical Exam Vitals and I&O: Vital Signs Temp 96.7 F 02/01/20 06:19 Pulse 74 02/01/20 06:19 Resp 18 02/01/20 06:19 BP 139/78 02/01/20 06:19 Pulse Ox 99 02/01/20 06:19 Intake & Output 01/31/20 02/01/20 02/01/20 18:59 06:59 18:59 Intake Total 800 240 Balance 800 240 Intake: Oral 800 240 Other: # Voids 4 2 # Bowel Movements 0 Active Medications: Current Medications Acetaminophen (Tylenol) 650 mg PO Q4H PRN PRN Reason: Pain (Mild 1-3) Stop: 03/22/20 00:51 Al Hydrox/Mg Hydrox/Simethicone (Maalox) 30 ml PO Q4HR PRN PRN Reason: GI DISTRESS Stop: 03/22/20 00:51 Amlodipine Besylate (Norvasc) 5 mg PO DAILY [facility] Stop: 03/29/20 08:59 Last Admin: 01/31/20 08:53 Dose: 5 mg Levothyroxine Sodium (Synthroid) 0.1 mg PO QDAC EARLINE Stop: 03/23/20 07:29 Last Admin: 02/01/20 06:59 Dose: Not Given Lorazepam (Ativan) 0.5 mg PO Q4HR PRN; Protocol PRN Reason: anxiety/agitation Stop: 02/21/20 00:51 Last Admin: 01/31/20 23:31 Dose: 0.5 mg Magnesium Hydroxide (Milk Of Magnesia) 30 ml PO HS PRN PRN Reason: Constipation Metoprolol Tartrate (Lopressor) 25 mg PO BID [facility] Stop: 03/22/20 08:59 Last Admin: 01/31/20 16:44 Dose: Not Given Olanzapine (Zyprexa) 10 mg PO DAILY [facility]; Protocol Stop: 03/22/20 12:44 Last Admin: 01/31/20 08:55 Dose: 10 mg Olanzapine 10 mg/ Olanzapine 2 (.5 mg) 12.5 mg PO HS [facility] Stop: 03/29/20 20:59 Last Admin: 01/31/20 21:53 Dose: 12.5 mg Trazodone HCl (Desyrel) 50 mg PO HS [facility]; Protocol Stop: 03/30/20 20:59 Last Admin: 01/31/20 21:53 Dose: 50 mg Valproate Sodium (Depakene) 250 mg PO BID [facility]; Protocol Stop: 03/22/20 16:59 Last Admin: 01/31/20 16:43 Dose: 250 mg General: Alert, No acute distress HEENT: Atraumatic, PERRLA Neck: Supple Cardiovascular: Regular rate, Normal S1, Normal S2 Lungs: Clear to auscultation Abdomen: Bowel sounds, Soft Extremities: no Clubbing, no Cyanosis, no Edema Neurological: Normal gait Assessment/Plan - Assessment Assessment: psychosis hypertension controlled hypothyroidism unsteady gait cognitive communication deficit dementia schizophrenia schizoaffective disorder - Plan Plan: will admit to [facility] for further evaluation and treatment continue current treatment add clonidine prn start norvasc 5mg po daily Nutritional Asmnt/Malnutr-PDOC - Dietary Evaluation Malnutrition Findings (Please click <Entered> for more info): Nutritional Asmnt/Malnutrition Start: 01/26/20 14: 36 Text: Status: Complete Freq: Protocol: Document 01/26/20 14:36 SHALOM (Rec: 01/26/20 14:51 SHALOM [id number]) Nutritional Asmnt/Malnutrition Patient General Information Nutritional Screening Low Risk Diagnosis Psychosis Pertinent Medical Hx/Surgical Hx Hypothyroidism, lack of coordination, hypertension, unsteady on feet. Subjective Information Pt is a 74-year-old female admitted on d/t agitation, irritability, and aggressive behavior. Pt is eating an estimated 77% of meals Per Meal/Nutrition Activity Record. Dietary is currently providing an estimated 2300 kcals and 106 gm Pro, per Pt PO intake this is providing an estimated 1770 kcals and 82 gm Pro to meet 100+% kcal and 100+% Pro needs . Per Meal/Nutrition Activity report, pt. refused breakfast and lunch 01/24 but ate 100% of dinner. Per nurse Negin note (01/24), pt. also refused medication and was noted with non-directable behavior, hyperverbal and confused Pt s refusal of meals morning of 01/24 possibly related to notes paranoid behavior. Pt was asleep in room at time of visit. Christy seen pt roaming the halls in passing, very active and talkative. Anthropometrics HT: 54 WT: 136 LB (61.81 kg) BMI: 23.49 (Normal) GI/ Skin Integrity GI: WNL, Soft, Flat, Non- tender BM: 01/24 x4 I/O: 1520/Not Noted Skin: WNL, Intact Timoteo: 17 Diet Order: Chopped, LOI Estimated Energy Needs: ( Geriatric, CBW) 3103-1213 kcals (25-30 kcals/ kg) 60-75g Pro (1.0-1.2 g/kg) 7662-2931 ml (25-30 ml/kg) Current Diet Order/ Nutrition Support Chopped, LOI Pertinent Medications Maalox (PRN), Synthroid, MOM ( PRN), Lopressor Pertinent Labs 01/20: A1C 6.1%, Glucose 119, K 3.2, T Pro 6.0 Nutritional Hx/Data Height 1.63 m Height (Calculated Centimeters) 162.6 Current Weight (lbs) 62.142 kg Weight (Calculated Kilograms) 62.1 Weight (Calculated Grams) 55121.2 [place] Body Weight 120 LB % [place] Body Weight 113 Body Mass Index (BMI) 23.5 Weight Status Approriate GI Symptoms GI Symptoms None Last BM 01/24 x4 Skin Integrity/Comment: Skin: WNL, Intact Timoteo: 17 Current %PO Good (75-100%) Estimated Nutritional Goals BEE in Kcals: Using Current wt Calories/Kcals/Kg 25-30 Kcals Calculated 9190-3844 Protein: Using Current wt Protein g/k.0-1.2 Protein Calculated 60-75 Fluid: ml 8824-4383 ml (25-30 ml/kg) Nutritional Problem 1. Problem Problem Altered nutrition-related lab values Etiology related to endocrinopathy Signs/Symptoms: as evidenced by labs (01/20 A1C 6.1%). Malnutrition Related to Morbid Obesity Malnutrition related to morbid obesity No Intervention/Recommendation Comments Continue Chopped, LOI diet as tolerated. Expected Outcomes/Goals Expected Outcomes/Goals 1.PO intake to continue to meet 75% of estimated nutritional needs. 2.Monitor PO intake, wt, nutrition related labs, and skin integrity. 3.F/U as low risk in 7-10 days , 02/01-02/04.
--- NOTE | 2020-02-01 20:22 | Progress Notes ---
DATE: 02/01/2020 SUBJECTIVE: Case was discussed with staff of the patient, reviewed records. The patient continues to be disorganized, looking disheveled, internally preoccupied. Continues to have poor insight. Continues to be responding to internal stimuli. Trazodone was added over the weekend because of lack of sleep. She tolerated increase in Zyprexa with no side effects, no sedation, no nausea, no extrapyramidal symptoms. The patient is compliant with the medication. I will be increasing the olanzapine to 50 mg at bedtime and no side effects with the medication, no sedation, no nausea, no extrapyramidal symptoms. We will continue outpatient group therapy, milieu therapy, and adjust her medication as needed. JOB# [id number]
[2020-02-02] MEDS: Levothyroxine 0.1 Mg Tab PO SCH (06:57)
--- NOTE | 2020-02-02 07:33 | General Progress Note ---
Subjective - Review of Systems Service Date: 02/02/20 Subjective: Awake, Alert, no acute distress. still confused. refusing medication T 96.7 P 74 R 18 BP 139/78 Objective - Physical Exam Vitals and I&O: Vital Signs Temp 97.8 F 02/01/20 14:15 Pulse 85 02/01/20 16:40 Resp 20 02/01/20 14:15 BP 146/82 02/01/20 16:40 Pulse Ox 95 02/01/20 14:15 Intake & Output 02/01/20 02/02/20 02/02/20 18:59 06:59 18:59 Intake Total 160 Balance 160 Intake: Oral 160 Other: # Voids 3 2 # Bowel Movements 1 0 Active Medications: Current Medications Acetaminophen (Tylenol) 650 mg PO Q4H PRN PRN Reason: Pain (Mild 1-3) Stop: 03/22/20 00:51 Al Hydrox/Mg Hydrox/Simethicone (Maalox) 30 ml PO Q4HR PRN PRN Reason: GI DISTRESS Stop: 03/22/20 00:51 Amlodipine Besylate (Norvasc) 5 mg PO DAILY [facility] Stop: 03/29/20 08:59 Last Admin: 02/01/20 08:28 Dose: 5 mg Levothyroxine Sodium (Synthroid) 0.1 mg PO QDAC [facility] Stop: 03/23/20 07:29 Last Admin: 02/02/20 06:57 Dose: Not Given Lorazepam (Ativan) 0.5 mg PO Q4HR PRN; Protocol PRN Reason: anxiety/agitation Stop: 02/21/20 00:51 Last Admin: 01/31/20 23:31 Dose: 0.5 mg Magnesium Hydroxide (Milk Of Magnesia) 30 ml PO HS PRN PRN Reason: Constipation Metoprolol Tartrate (Lopressor) 25 mg PO BID [facility] Stop: 03/22/20 08:59 Last Admin: 02/01/20 16:40 Dose: 25 mg Olanzapine (Zyprexa) 10 mg PO DAILY [facility]; Protocol Stop: 03/22/20 12:44 Last Admin: 02/01/20 08:28 Dose: 10 mg Olanzapine (Zyprexa) 15 mg PO HS [facility] Stop: 04/01/20 20:59 Last Admin: 02/01/20 20:42 Dose: 15 mg Trazodone HCl (Desyrel) 50 mg PO HS [facility]; Protocol Stop: 03/30/20 20:59 Last Admin: 02/01/20 20:42 Dose: 50 mg Valproate Sodium (Depakene) 250 mg PO BID [facility]; Protocol Stop: 03/22/20 16:59 Last Admin: 02/01/20 16:40 Dose: 250 mg General: Alert, No acute distress HEENT: Atraumatic, PERRLA Neck: Supple Cardiovascular: Regular rate, Normal S1, Normal S2 Lungs: Clear to auscultation Abdomen: Bowel sounds, Soft Extremities: no Clubbing, no Cyanosis, no Edema Neurological: Normal gait Assessment/Plan - Assessment Assessment: psychosis hypertension controlled hypothyroidism unsteady gait cognitive communication deficit dementia schizophrenia schizoaffective disorder - Plan Plan: will admit to [facility] for further evaluation and treatment continue current treatment add clonidine prn start norvasc 5mg po daily Nutritional Asmnt/Malnutr-PDOC - Dietary Evaluation Malnutrition Findings (Please click <Entered> for more info): Nutritional Asmnt/Malnutrition Start: 01/26/20 14: 36 Text: Status: Complete Freq: Protocol: Document 01/26/20 14:36 SHALOM (Rec: 01/26/20 14:51 SHALOM [id number]) Nutritional Asmnt/Malnutrition Patient General Information Nutritional Screening Low Risk Diagnosis Psychosis Pertinent Medical Hx/Surgical Hx Hypothyroidism, lack of coordination, hypertension, unsteady on feet. Subjective Information Pt is a 74-year-old female admitted on d/t agitation, irritability, and aggressive behavior. Pt is eating an estimated 77% of meals Per Meal/Nutrition Activity Record. Dietary is currently providing an estimated 2300 kcals and 106 gm Pro, per Pt PO intake this is providing an estimated 1770 kcals and 82 gm Pro to meet 100+% kcal and 100+% Pro needs . Per Meal/Nutrition Activity report, pt. refused breakfast and lunch 01/24 but ate 100% of dinner. Per nurse Negin note (01/24), pt. also refused medication and was noted with non-directable behavior, hyperverbal and confused Pt s refusal of meals morning of 01/24 possibly related to notes paranoid behavior. Pt was asleep in room at time of visit. Christy seen pt roaming the halls in passing, very active and talkative. Anthropometrics HT: 54 WT: 136 LB (61.81 kg) BMI: 23.49 (Normal) GI/ Skin Integrity GI: WNL, Soft, Flat, Non- tender BM: 01/24 x4 I/O: 1520/Not Noted Skin: WNL, Intact Timoteo: 17 Diet Order: Chopped, LOI Estimated Energy Needs: ( Geriatric, CBW) 9810-4431 kcals (25-30 kcals/ kg) 60-75g Pro (1.0-1.2 g/kg) 9890-5883 ml (25-30 ml/kg) Current Diet Order/ Nutrition Support Chopped, LOI Pertinent Medications Maalox (PRN), Synthroid, MOM ( PRN), Lopressor Pertinent Labs 01/20: A1C 6.1%, Glucose 119, K 3.2, T Pro 6.0 Nutritional Hx/Data Height 1.63 m Height (Calculated Centimeters) 162.6 Current Weight (lbs) 62.142 kg Weight (Calculated Kilograms) 62.1 Weight (Calculated Grams) 03181.2 [place] Body Weight 120 LB % [place] Body Weight 113 Body Mass Index (BMI) 23.5 Weight Status Approriate GI Symptoms GI Symptoms None Last BM 01/24 x4 Skin Integrity/Comment: Skin: WNL, Intact Timoteo: 17 Current %PO Good (75-100%) Estimated Nutritional Goals BEE in Kcals: Using Current wt Calories/Kcals/Kg 25-30 Kcals Calculated 7689-3380 Protein: Using Current wt Protein g/k.0-1.2 Protein Calculated 60-75 Fluid: ml 7463-2946 ml (25-30 ml/kg) Nutritional Problem 1. Problem Problem Altered nutrition-related lab values Etiology related to endocrinopathy Signs/Symptoms: as evidenced by labs (01/20 A1C 6.1%). Malnutrition Related to Morbid Obesity Malnutrition related to morbid obesity No Intervention/Recommendation Comments Continue Chopped, LOI diet as tolerated. Expected Outcomes/Goals Expected Outcomes/Goals 1.PO intake to continue to meet 75% of estimated nutritional needs. 2.Monitor PO intake, wt, nutrition related labs, and skin integrity. 3.F/U as low risk in 7-10 days , 02/01-02/04.
--- NOTE | 2020-02-03 01:15 | Progress Notes ---
DATE: 02/02/2020 SUBJECTIVE: Case was discussed with staff of the patient, reviewed records. The patient continues to stay to herself, internally preoccupied. She refused her medication today, but is still having taking them for a few days now. We will watch her more. I did increase her olanzapine yesterday to 50 mg at bedtime, it is early to make judgment on the effectiveness of the medication. MENTAL STATUS EXAMINATION: The patient was appropriately dressed, not very groomed. She was very irritable. She was talking to herself and when I tried to talk to her she spoke back loud to me saying that she is praying, unable to make safe plan for self-care, unpredictable, impulsive, continues to be easily agitated and no side effects with the medication, no sedation, no nausea, no extrapyramidal symptoms. ASSESSMENT: The patient continues to be psychotic, delusional, paranoid, unable to make safe plan for self-care. PLAN: We will continue outpatient group therapy, milieu therapy, adjust medication as needed. JOB# [id number]
[2020-02-03] MEDS: Levothyroxine 0.1 Mg Tab PO SCH (06:33)
--- NOTE | 2020-02-03 08:49 | General Progress Note ---
Subjective - Review of Systems Service Date: 02/03/20 Subjective: Awake, Alert, no acute distress. still confused. refusing medication T 97.6 P 68 R 18 BP 148/77 Objective - Physical Exam Vitals and I&O: Vital Signs Temp 97.6 F 02/03/20 06:28 Pulse 68 02/03/20 08:34 Resp 18 02/03/20 06:28 BP 148/77 02/03/20 08:34 Pulse Ox 98 02/03/20 06:28 Intake & Output 02/02/20 02/03/20 02/03/20 18:59 06:59 18:59 Intake Total 120 Balance 120 Intake: Oral 120 Other: # Voids 3 2 # Bowel Movements 1 0 Active Medications: Current Medications Acetaminophen (Tylenol) 650 mg PO Q4H PRN PRN Reason: Pain (Mild 1-3) Stop: 03/22/20 00:51 Al Hydrox/Mg Hydrox/Simethicone (Maalox) 30 ml PO Q4HR PRN PRN Reason: GI DISTRESS Stop: 03/22/20 00:51 Amlodipine Besylate (Norvasc) 5 mg PO DAILY EARLINE Stop: 03/29/20 08:59 Last Admin: 02/03/20 08:33 Dose: 5 mg Levothyroxine Sodium (Synthroid) 0.1 mg PO QDAC EARLINE Stop: 03/23/20 07:29 Last Admin: 02/03/20 06:33 Dose: Not Given Lorazepam (Ativan) 0.5 mg PO Q4HR PRN; Protocol PRN Reason: anxiety/agitation Stop: 02/21/20 00:51 Last Admin: 02/02/20 20:19 Dose: 0.5 mg Magnesium Hydroxide (Milk Of Magnesia) 30 ml PO HS PRN PRN Reason: Constipation Metoprolol Tartrate (Lopressor) 25 mg PO BID EARLINE Stop: 03/22/20 08:59 Last Admin: 02/03/20 08:34 Dose: 25 mg Olanzapine (Zyprexa) 10 mg PO DAILY EARLINE; Protocol Stop: 03/22/20 12:44 Last Admin: 02/03/20 08:34 Dose: 10 mg Olanzapine (Zyprexa) 15 mg PO HS EARLINE Stop: 04/01/20 20:59 Last Admin: 02/02/20 20:19 Dose: Not Given Trazodone HCl (Desyrel) 50 mg PO HS EARLINE; Protocol Stop: 03/30/20 20:59 Last Admin: 02/02/20 20:19 Dose: Not Given Valproate Sodium (Depakene) 250 mg PO BID EARLINE; Protocol Stop: 03/22/20 16:59 Last Admin: 02/03/20 08:34 Dose: 250 mg General: Alert, No acute distress HEENT: Atraumatic, PERRLA Neck: Supple Cardiovascular: Regular rate, Normal S1, Normal S2 Lungs: Clear to auscultation Abdomen: Bowel sounds, Soft Extremities: no Clubbing, no Cyanosis, no Edema Neurological: Normal gait Assessment/Plan - Assessment Assessment: psychosis hypertension controlled hypothyroidism unsteady gait cognitive communication deficit dementia schizophrenia schizoaffective disorder - Plan Plan: will admit to [facility] for further evaluation and treatment continue current treatment add clonidine prn start norvasc 5mg po daily Nutritional Asmnt/Malnutr-PDOC - Dietary Evaluation Malnutrition Findings (Please click <Entered> for more info): Nutritional Asmnt/Malnutrition Start: 01/26/20 14: 36 Text: Status: Complete Freq: Protocol: Document 01/26/20 14:36 SHALOM (Rec: 01/26/20 14:51 SHALOM [id number]) Nutritional Asmnt/Malnutrition Patient General Information Nutritional Screening Low Risk Diagnosis Psychosis Pertinent Medical Hx/Surgical Hx Hypothyroidism, lack of coordination, hypertension, unsteady on feet. Subjective Information Pt is a 74-year-old female admitted on d/t agitation, irritability, and aggressive behavior. Pt is eating an estimated 77% of meals Per Meal/Nutrition Activity Record. Dietary is currently providing an estimated 2300 kcals and 106 gm Pro, per Pt PO intake this is providing an estimated 1770 kcals and 82 gm Pro to meet 100+% kcal and 100+% Pro needs . Per Meal/Nutrition Activity report, pt. refused breakfast and lunch 01/24 but ate 100% of dinner. Per nurse Negin note (01/24), pt. also refused medication and was noted with non-directable behavior, hyperverbal and confused Pt s refusal of meals morning of 01/24 possibly related to notes paranoid behavior. Pt was asleep in room at time of visit. Christy seen pt roaming the halls in passing, very active and talkative. Anthropometrics HT: 54 WT: 136 LB (61.81 kg) BMI: 23.49 (Normal) GI/ Skin Integrity GI: WNL, Soft, Flat, Non- tender BM: 01/24 x4 I/O: 1520/Not Noted Skin: WNL, Intact Timoteo: 17 Diet Order: Chopped, LOI Estimated Energy Needs: ( Geriatric, CBW) 3294-8138 kcals (25-30 kcals/ kg) 60-75g Pro (1.0-1.2 g/kg) 9321-3536 ml (25-30 ml/kg) Current Diet Order/ Nutrition Support Chopped, LOI Pertinent Medications Maalox (PRN), Synthroid, MOM ( PRN), Lopressor Pertinent Labs 01/20: A1C 6.1%, Glucose 119, K 3.2, T Pro 6.0 Nutritional Hx/Data Height 1.63 m Height (Calculated Centimeters) 162.6 Current Weight (lbs) 62.142 kg Weight (Calculated Kilograms) 62.1 Weight (Calculated Grams) 71882.2 [place] Body Weight 120 LB % [place] Body Weight 113 Body Mass Index (BMI) 23.5 Weight Status Approriate GI Symptoms GI Symptoms None Last BM 01/24 x4 Skin Integrity/Comment: Skin: WNL, Intact Timoteo: 17 Current %PO Good (75-100%) Estimated Nutritional Goals BEE in Kcals: Using Current wt Calories/Kcals/Kg 25-30 Kcals Calculated 4391-6806 Protein: Using Current wt Protein g/k.0-1.2 Protein Calculated 60-75 Fluid: ml 7004-0992 ml (25-30 ml/kg) Nutritional Problem 1. Problem Problem Altered nutrition-related lab values Etiology related to endocrinopathy Signs/Symptoms: as evidenced by labs (01/20 A1C 6.1%). Malnutrition Related to Morbid Obesity Malnutrition related to morbid obesity No Intervention/Recommendation Comments Continue Chopped, LOI diet as tolerated. Expected Outcomes/Goals Expected Outcomes/Goals 1.PO intake to continue to meet 75% of estimated nutritional needs. 2.Monitor PO intake, wt, nutrition related labs, and skin integrity. 3.F/U as low risk in 7-10 days , 02/01-02/04.
--- NOTE | 2020-02-03 19:19 | Progress Notes ---
DATE: 02/03/2020 SUBJECTIVE: Case was discussed with staff of the patient, reviewed records. The patient continues to refuse all her medication yesterday, which she was taking in the past 2 days according to the staff. MENTAL STATUS EXAMINATION: The patient still looked disheveled, disorganized, talking to herself. At the beginning, she would not talk to me. She said I am trying, but then she followed me later and started talking to me. She was rambling, hard to redirect, religiously preoccupied, not making sense at times, it is hard to follow her train of thought, tangential in her answers. Affect is constricted. Thoughts are very concrete. Though speech is coherent, but yet not making sense, tangential speech. Disorganized. ASSESSMENT: The patient continues to be psychotic. PLAN: will_ encourage her to take her medications. If she does not take it, we may have to reise him No side effects with the medication, no sedation, no nausea, no extrapyramidal symptoms. We will continue the patient in group therapy, milieu therapy, and adjust medications as needed. JOB# [id number] MILEY
[2020-02-04] MEDS: Levothyroxine 0.1 Mg Tab PO SCH (06:52)
--- NOTE | 2020-02-04 07:52 | General Progress Note ---
Subjective - Review of Systems Service Date: 02/04/20 Subjective: Awake, Alert, no acute distress. still confused. refusing medication T 97.3 P 58 R 20 BP 142/65 Objective - Physical Exam Vitals and I&O: Vital Signs Temp 97.3 F 02/04/20 06:23 Pulse 58 02/04/20 06:23 Resp 20 02/04/20 06:23 BP 142/65 02/04/20 06:23 Pulse Ox 98 02/04/20 06:23 Intake & Output 02/03/20 02/04/20 02/04/20 18:59 06:59 18:59 Intake Total 850 120 Balance 850 120 Intake: Oral 850 120 Other: # Voids 2 # Bowel Movements 1 Active Medications: Current Medications Acetaminophen (Tylenol) 650 mg PO Q4H PRN PRN Reason: Pain (Mild 1-3) Stop: 03/22/20 00:51 Al Hydrox/Mg Hydrox/Simethicone (Maalox) 30 ml PO Q4HR PRN PRN Reason: GI DISTRESS Stop: 03/22/20 00:51 Amlodipine Besylate (Norvasc) 5 mg PO DAILY [facility] Stop: 03/29/20 08:59 Last Admin: 02/03/20 08:33 Dose: 5 mg Levothyroxine Sodium (Synthroid) 0.1 mg PO QDAC EARLINE Stop: 03/23/20 07:29 Last Admin: 02/04/20 06:52 Dose: 0.1 mg Lorazepam (Ativan) 0.5 mg PO Q4HR PRN; Protocol PRN Reason: anxiety/agitation Stop: 02/21/20 00:51 Last Admin: 02/03/20 21:35 Dose: 0.5 mg Magnesium Hydroxide (Milk Of Magnesia) 30 ml PO HS PRN PRN Reason: Constipation Metoprolol Tartrate (Lopressor) 25 mg PO BID EARLINE Stop: 03/22/20 08:59 Last Admin: 02/03/20 17:40 Dose: Not Given Olanzapine (Zyprexa) 10 mg PO DAILY EARLINE; Protocol Stop: 03/22/20 12:44 Last Admin: 02/03/20 08:34 Dose: 10 mg Olanzapine (Zyprexa) 15 mg PO HS EARLINE Stop: 04/01/20 20:59 Last Admin: 02/03/20 21:30 Dose: 15 mg Trazodone HCl (Desyrel) 50 mg PO HS [facility]; Protocol Stop: 03/30/20 20:59 Last Admin: 02/03/20 21:30 Dose: 50 mg Valproate Sodium (Depakene) 250 mg PO BID EARLINE; Protocol Stop: 03/22/20 16:59 Last Admin: 02/03/20 17:41 Dose: Not Given General: Alert, No acute distress HEENT: Atraumatic, PERRLA Neck: Supple Cardiovascular: Regular rate, Normal S1, Normal S2 Lungs: Clear to auscultation Abdomen: Bowel sounds, Soft Extremities: no Clubbing, no Cyanosis, no Edema Neurological: Normal gait Assessment/Plan - Assessment Assessment: psychosis hypertension controlled hypothyroidism unsteady gait cognitive communication deficit dementia schizophrenia schizoaffective disorder - Plan Plan: will admit to [facility] for further evaluation and treatment continue current treatment add clonidine prn start norvasc 5mg po daily Nutritional Asmnt/Malnutr-PDOC - Dietary Evaluation Malnutrition Findings (Please click <Entered> for more info): Nutritional Asmnt/Malnutrition Start: 01/26/20 14: 36 Text: Status: Complete Freq: Protocol: Document 01/26/20 14:36 SHALOM (Rec: 01/26/20 14:51 SHALOM [id number]) Nutritional Asmnt/Malnutrition Patient General Information Nutritional Screening Low Risk Diagnosis Psychosis Pertinent Medical Hx/Surgical Hx Hypothyroidism, lack of coordination, hypertension, unsteady on feet. Subjective Information Pt is a 74-year-old female admitted on d/t agitation, irritability, and aggressive behavior. Pt is eating an estimated 77% of meals Per Meal/Nutrition Activity Record. Dietary is currently providing an estimated 2300 kcals and 106 gm Pro, per Pt PO intake this is providing an estimated 1770 kcals and 82 gm Pro to meet 100+% kcal and 100+% Pro needs . Per Meal/Nutrition Activity report, pt. refused breakfast and lunch 01/24 but ate 100% of dinner. Per nurse Negin note (01/24), pt. also refused medication and was noted with non-directable behavior, hyperverbal and confused Pt s refusal of meals morning of 01/24 possibly related to notes paranoid behavior. Pt was asleep in room at time of visit. Christy seen pt roaming the halls in passing, very active and talkative. Anthropometrics HT: 54 WT: 136 LB (61.81 kg) BMI: 23.49 (Normal) GI/ Skin Integrity GI: WNL, Soft, Flat, Non- tender BM: 01/24 x4 I/O: 1520/Not Noted Skin: WNL, Intact Timoteo: 17 Diet Order: Chopped, LOI Estimated Energy Needs: ( Geriatric, CBW) 3032-9173 kcals (25-30 kcals/ kg) 60-75g Pro (1.0-1.2 g/kg) 1321-5456 ml (25-30 ml/kg) Current Diet Order/ Nutrition Support Chopped, LOI Pertinent Medications Maalox (PRN), Synthroid, MOM ( PRN), Lopressor Pertinent Labs 01/20: A1C 6.1%, Glucose 119, K 3.2, T Pro 6.0 Nutritional Hx/Data Height 1.63 m Height (Calculated Centimeters) 162.6 Current Weight (lbs) 62.142 kg Weight (Calculated Kilograms) 62.1 Weight (Calculated Grams) 09333.2 [place] Body Weight 120 LB % [place] Body Weight 113 Body Mass Index (BMI) 23.5 Weight Status Approriate GI Symptoms GI Symptoms None Last BM 01/24 x4 Skin Integrity/Comment: Skin: WNL, Intact Timoteo: 17 Current %PO Good (75-100%) Estimated Nutritional Goals BEE in Kcals: Using Current wt Calories/Kcals/Kg 25-30 Kcals Calculated 2814-5489 Protein: Using Current wt Protein g/k.0-1.2 Protein Calculated 60-75 Fluid: ml 0844-1967 ml (25-30 ml/kg) Nutritional Problem 1. Problem Problem Altered nutrition-related lab values Etiology related to endocrinopathy Signs/Symptoms: as evidenced by labs (01/20 A1C 6.1%). Malnutrition Related to Morbid Obesity Malnutrition related to morbid obesity No Intervention/Recommendation Comments Continue Chopped, LOI diet as tolerated. Expected Outcomes/Goals Expected Outcomes/Goals 1.PO intake to continue to meet 75% of estimated nutritional needs. 2.Monitor PO intake, wt, nutrition related labs, and skin integrity. 3.F/U as low risk in 7-10 days , 02/01-02/04.
--- NOTE | 2020-02-04 16:23 | Progress Notes ---
DATE: 02/04/2020 Case was discussed with staff of the patient and reviewed records. The staff is reviewing how often the patient takes her medication. The patient sometimes misses; however, she does not meet criteria for reise. She used to not take medication for 3 days in a row, but she did take it yesterday, refusing it today. Sometimes, she takes valproic acid. She continues to be hyperverbal. She continues to look disheveled, disorganized, internally preoccupied. She continues to be unable to make safe plan for self-care. It is hard to adjust her medication. She is not taking it on a regular basis. No side effects to the medication, no sedation, no nausea, no extrapyramidal symptoms. We will continue to work with the patient in group therapy, milieu therapy, and adjust the medication as needed. JOB# [id number] MTDD
[2020-02-05] MEDS: Levothyroxine 0.1 Mg Tab PO SCH (06:45)
--- NOTE | 2020-02-05 07:15 | General Progress Note ---
Subjective - Review of Systems Service Date: 02/05/20 Subjective: Awake, Alert, no acute distress. inconsistent with taking her medication T 98.4 P 62 R 20 BP 91/49 Objective - Physical Exam Vitals and I&O: Vital Signs Temp 98.4 F 02/04/20 14:00 Pulse 62 02/04/20 17:45 Resp 18 02/04/20 20:00 BP 91/45 02/04/20 17:45 Pulse Ox 95 02/04/20 14:00 Intake & Output 02/04/20 02/05/20 02/05/20 18:59 06:59 18:59 Intake Total 1000 240 Balance 1000 240 Intake: Oral 1000 240 Other: # Voids 4 2 # Bowel Movements 1 0 Active Medications: Current Medications Acetaminophen (Tylenol) 650 mg PO Q4H PRN PRN Reason: Pain (Mild 1-3) Stop: 03/22/20 00:51 Al Hydrox/Mg Hydrox/Simethicone (Maalox) 30 ml PO Q4HR PRN PRN Reason: GI DISTRESS Stop: 03/22/20 00:51 Amlodipine Besylate (Norvasc) 5 mg PO DAILY [facility] Stop: 03/29/20 08:59 Last Admin: 02/04/20 09:20 Dose: 5 mg Levothyroxine Sodium (Synthroid) 0.1 mg PO QDAC EARLINE Stop: 03/23/20 07:29 Last Admin: 02/05/20 06:45 Dose: 0.1 mg Lorazepam (Ativan) 0.5 mg PO Q4HR PRN; Protocol PRN Reason: anxiety/agitation Stop: 02/21/20 00:51 Last Admin: 02/04/20 21:33 Dose: 0.5 mg Magnesium Hydroxide (Milk Of Magnesia) 30 ml PO HS PRN PRN Reason: Constipation Metoprolol Tartrate (Lopressor) 25 mg PO BID EARLINE Stop: 03/22/20 08:59 Last Admin: 02/04/20 17:45 Dose: Not Given Olanzapine (Zyprexa) 10 mg PO DAILY EARLINE; Protocol Stop: 03/22/20 12:44 Last Admin: 02/04/20 09:20 Dose: Not Given Olanzapine (Zyprexa) 15 mg PO HS EARLINE Stop: 04/01/20 20:59 Last Admin: 06/11/20 21:33 Dose: 15 mg Trazodone HCl (Desyrel) 50 mg PO HS [facility]; Protocol Stop: 03/30/20 20:59 Last Admin: 02/04/20 21:34 Dose: 50 mg Valproate Sodium (Depakene) 250 mg PO BID [facility]; Protocol Stop: 03/22/20 16:59 Last Admin: 02/04/20 17:46 Dose: Not Given General: Alert, No acute distress HEENT: Atraumatic, PERRLA Neck: Supple Cardiovascular: Regular rate, Normal S1, Normal S2 Lungs: Clear to auscultation Abdomen: Bowel sounds, Soft Extremities: no Clubbing, no Cyanosis, no Edema Neurological: Normal gait Assessment/Plan - Assessment Assessment: psychosis hypotension h/o htn hypothyroidism unsteady gait cognitive communication deficit dementia schizophrenia schizoaffective disorder - Plan Plan: will admit to [facility] for further evaluation and treatment continue current treatment add clonidine prn start norvasc 5mg po daily Nutritional Asmnt/Malnutr-PDOC - Dietary Evaluation Malnutrition Findings (Please click <Entered> for more info): Nutritional Asmnt/Malnutrition Start: 01/26/20 14: 36 Text: Status: Complete Freq: Protocol: Document 01/26/20 14:36 SHALOM (Rec: 01/26/20 14:51 SHALOM [id number]) Nutritional Asmnt/Malnutrition Patient General Information Nutritional Screening Low Risk Diagnosis Psychosis Pertinent Medical Hx/Surgical Hx Hypothyroidism, lack of coordination, hypertension, unsteady on feet. Subjective Information Pt is a 74-year-old female admitted on d/t agitation, irritability, and aggressive behavior. Pt is eating an estimated 77% of meals Per Meal/Nutrition Activity Record. Dietary is currently providing an estimated 2300 kcals and 106 gm Pro, per Pt PO intake this is providing an estimated 1770 kcals and 82 gm Pro to meet 100+% kcal and 100+% Pro needs . Per Meal/Nutrition Activity report, pt. refused breakfast and lunch 01/24 but ate 100% of dinner. Per nurse Negin note (01/24), pt. also refused medication and was noted with non-directable behavior, hyperverbal and confused Pt s refusal of meals morning of 01/24 possibly related to notes paranoid behavior. Pt was asleep in room at time of visit. Chirsty seen pt roaming the halls in passing, very active and talkative. Anthropometrics HT: 54 WT: 136 LB (61.81 kg) BMI: 23.49 (Normal) GI/ Skin Integrity GI: WNL, Soft, Flat, Non- tender BM: 01/24 x4 I/O: 1520/Not Noted Skin: WNL, Intact Timoteo: 17 Diet Order: Chopped, LOI Estimated Energy Needs: ( Geriatric, CBW) 8512-3655 kcals (25-30 kcals/ kg) 60-75g Pro (1.0-1.2 g/kg) 3292-1857 ml (25-30 ml/kg) Current Diet Order/ Nutrition Support Chopped, LOI Pertinent Medications Maalox (PRN), Synthroid, MOM ( PRN), Lopressor Pertinent Labs 01/20: A1C 6.1%, Glucose 119, K 3.2, T Pro 6.0 Nutritional Hx/Data Height 1.63 m Height (Calculated Centimeters) 162.6 Current Weight (lbs) 62.142 kg Weight (Calculated Kilograms) 62.1 Weight (Calculated Grams) 11410.2 [place] Body Weight 120 LB % [place] Body Weight 113 Body Mass Index (BMI) 23.5 Weight Status Approriate GI Symptoms GI Symptoms None Last BM 01/24 x4 Skin Integrity/Comment: Skin: WNL, Intact Timoteo: 17 Current %PO Good (75-100%) Estimated Nutritional Goals BEE in Kcals: Using Current wt Calories/Kcals/Kg 25-30 Kcals Calculated 2661-6377 Protein: Using Current wt Protein g/k.0-1.2 Protein Calculated 60-75 Fluid: ml 7571-7830 ml (25-30 ml/kg) Nutritional Problem 1. Problem Problem Altered nutrition-related lab values Etiology related to endocrinopathy Signs/Symptoms: as evidenced by labs (01/20 A1C 6.1%). Malnutrition Related to Morbid Obesity Malnutrition related to morbid obesity No Intervention/Recommendation Comments Continue Chopped, LOI diet as tolerated. Expected Outcomes/Goals Expected Outcomes/Goals 1.PO intake to continue to meet 75% of estimated nutritional needs. 2.Monitor PO intake, wt, nutrition related labs, and skin integrity. 3.F/U as low risk in 7-10 days , 02/01-02/04.
--- NOTE | 2020-02-06 00:21 | Progress Notes ---
DATE: 02/05/2020 SUBJECTIVE: Case was discussed with staff of the patient, reviewed records. The patient continues to have poor insight, unpredictable, impulsive, labile. The patient has been compliant with the medication so far. No side effects with the medication, no sedation, no nausea, no extrapyramidal symptoms. Continues to be easily agitated. We will continue outpatient group therapy, milieu therapy, and adjust medications as needed. JOB# [id number]
--- NOTE | 2020-02-06 07:32 | Progress Notes ---
DATE: 02/06/2020 SUBJECTIVE: A 74-year-old female coming in from [place], irritable, agitated, aggressive, not cooperative, rambling when she came to the hospital, per staff, sometimes refusing medications, at times hyperverbal, responding to internal stimuli. When I go see her, she is pretty irritable, does not want to talk to me. Per Dr. Shipley, poor insight, unpredictable, impulsive, labile, easily agitated. I have a hard time interviewing her. Per staff, she is hyperverbal, talking to self, using offensive language, episodes of being angry, laughing to self, responding to internal stimuli, wandering a lot at times, not wanting to take medications, sometimes taking Zyprexa. Medications reviewed. Labs were reviewed. Vitals reviewed, blood pressure 132/81, pulse of 80. ASSESSMENT: A 74-year-old female with ongoing behavioral disturbances, agitation, highly psychotic. PLAN: We will continue inpatient monitoring. Encourage med compliance. JOB# [id number]
[2020-02-06] MEDS: Levothyroxine 0.1 Mg Tab PO SCH (07:35)
[2020-02-07] MEDS: Levothyroxine 0.1 Mg Tab PO SCH (06:39)
--- NOTE | 2020-02-07 08:38 | General Progress Note ---
Subjective - Review of Systems Service Date: 02/07/20 Subjective: Awake, Alert, no acute distress. inconsistent with taking her medication T 98.4 P 80 R 20 BP 130/78 Objective - Physical Exam Vitals and I&O: Vital Signs Temp 98.5 F 02/06/20 15:20 Pulse 80 02/07/20 08:04 Resp 20 02/06/20 19:58 BP 130/78 02/07/20 08:04 Pulse Ox 98 02/06/20 15:20 Active Medications: Current Medications Acetaminophen (Tylenol) 650 mg PO Q4H PRN PRN Reason: Pain (Mild 1-3) Stop: 03/22/20 00:51 Al Hydrox/Mg Hydrox/Simethicone (Maalox) 30 ml PO Q4HR PRN PRN Reason: GI DISTRESS Stop: 03/22/20 00:51 Amlodipine Besylate (Norvasc) 5 mg PO DAILY [facility] Stop: 03/29/20 08:59 Last Admin: 02/07/20 08:04 Dose: 5 mg Levothyroxine Sodium (Synthroid) 0.1 mg PO QDAC [facility] Stop: 03/23/20 07:29 Last Admin: 02/07/20 06:39 Dose: 0.1 mg Lorazepam (Ativan) 0.5 mg PO Q4HR PRN; Protocol PRN Reason: Agitation Stop: 04/05/20 18:49 Last Admin: 02/07/20 02:00 Dose: 0.5 mg Magnesium Hydroxide (Milk Of Magnesia) 30 ml PO HS PRN PRN Reason: Constipation Metoprolol Tartrate (Lopressor) 25 mg PO BID [facility] Stop: 03/22/20 08:59 Last Admin: 02/07/20 08:04 Dose: 25 mg Olanzapine (Zyprexa) 10 mg PO DAILY [facility]; Protocol Stop: 03/22/20 12:44 Last Admin: 02/07/20 08:04 Dose: 10 mg Olanzapine (Zyprexa) 15 mg PO HS [facility] Stop: 04/01/20 20:59 Last Admin: 02/06/20 21:40 Dose: Not Given Trazodone HCl (Desyrel) 50 mg PO HS [facility]; Protocol Stop: 03/30/20 20:59 Last Admin: 02/06/20 21:40 Dose: Not Given Valproate Sodium (Depakene) 250 mg PO BID [facility]; Protocol Stop: 03/22/20 16:59 Last Admin: 02/07/20 08:04 Dose: 250 mg General: Alert, No acute distress HEENT: Atraumatic, PERRLA Neck: Supple Cardiovascular: Regular rate, Normal S1, Normal S2 Lungs: Clear to auscultation Abdomen: Bowel sounds, Soft Extremities: no Clubbing, no Cyanosis, no Edema Neurological: Normal gait Assessment/Plan - Assessment Assessment: psychosis htn stable hypothyroidism unsteady gait cognitive communication deficit dementia schizophrenia schizoaffective disorder - Plan Plan: will admit to [facility] for further evaluation and treatment continue current treatment add clonidine prn start norvasc 5mg po daily Nutritional Asmnt/Malnutr-PDOC - Dietary Evaluation Malnutrition Findings (Please click <Entered> for more info): Nutritional Asmnt/Malnutrition Start: 01/26/20 14: 36 Text: Status: Complete Freq: Protocol: Document 01/26/20 14:36 SHALOM (Rec: 01/26/20 14:51 SHALOM [id number]) Nutritional Asmnt/Malnutrition Patient General Information Nutritional Screening Low Risk Diagnosis Psychosis Pertinent Medical Hx/Surgical Hx Hypothyroidism, lack of coordination, hypertension, unsteady on feet. Subjective Information Pt is a 74-year-old female admitted on d/t agitation, irritability, and aggressive behavior. Pt is eating an estimated 77% of meals Per Meal/Nutrition Activity Record. Dietary is currently providing an estimated 2300 kcals and 106 gm Pro, per Pt PO intake this is providing an estimated 1770 kcals and 82 gm Pro to meet 100+% kcal and 100+% Pro needs . Per Meal/Nutrition Activity report, pt. refused breakfast and lunch 01/24 but ate 100% of dinner. Per nurse Negin note (01/24), pt. also refused medication and was noted with non-directable behavior, hyperverbal and confused Pt s refusal of meals morning of 01/24 possibly related to notes paranoid behavior. Pt was asleep in room at time of visit. Christy seen pt roaming the halls in passing, very active and talkative. Anthropometrics HT: 54 WT: 136 LB (61.81 kg) BMI: 23.49 (Normal) GI/ Skin Integrity GI: WNL, Soft, Flat, Non- tender BM: 01/24 x4 I/O: 1520/Not Noted Skin: WNL, Intact Timoteo: 17 Diet Order: Chopped, LOI Estimated Energy Needs: ( Geriatric, CBW) 0054-0090 kcals (25-30 kcals/ kg) 60-75g Pro (1.0-1.2 g/kg) 6693-5054 ml (25-30 ml/kg) Current Diet Order/ Nutrition Support Chopped, LOI Pertinent Medications Maalox (PRN), Synthroid, MOM ( PRN), Lopressor Pertinent Labs 01/20: A1C 6.1%, Glucose 119, K 3.2, T Pro 6.0 Nutritional Hx/Data Height 1.63 m Height (Calculated Centimeters) 162.6 Current Weight (lbs) 62.142 kg Weight (Calculated Kilograms) 62.1 Weight (Calculated Grams) 05628.2 [place] Body Weight 120 LB % [place] Body Weight 113 Body Mass Index (BMI) 23.5 Weight Status Approriate GI Symptoms GI Symptoms None Last BM 01/24 x4 Skin Integrity/Comment: Skin: WNL, Intact Timoteo: 17 Current %PO Good (75-100%) Estimated Nutritional Goals BEE in Kcals: Using Current wt Calories/Kcals/Kg 25-30 Kcals Calculated 3960-2877 Protein: Using Current wt Protein g/k.0-1.2 Protein Calculated 60-75 Fluid: ml 7136-9742 ml (25-30 ml/kg) Nutritional Problem 1. Problem Problem Altered nutrition-related lab values Etiology related to endocrinopathy Signs/Symptoms: as evidenced by labs (01/20 A1C 6.1%). Malnutrition Related to Morbid Obesity Malnutrition related to morbid obesity No Intervention/Recommendation Comments Continue Chopped, LOI diet as tolerated. Expected Outcomes/Goals Expected Outcomes/Goals 1.PO intake to continue to meet 75% of estimated nutritional needs. 2.Monitor PO intake, wt, nutrition related labs, and skin integrity. 3.F/U as low risk in 7-10 days , 02/01-02/04.
--- NOTE | 2020-02-07 18:26 | Progress Notes ---
DATE: Dr. Rogers covering for Dr. Shipley. Chart reviewed and patient interviewed. Also discussed patient's condition with the staff and reviewed records and labs. The patient is severely irritable and severely agitated. The patient also is actively hallucinating and actively talking to herself. The patient during my interview was not able to carry on any coherent conversation and kept rambling and talking fast with pressured speech and angry mood. The patient also is refusing to take her medications, but staff has been pursuing in getting her medications. The patient also is still in irritable mood and she still needs lots of redirections. She also making bizarre statements including "I am tasting my urine." Also, patient is loud. ASSESSMENT: The patient is still psychotic and actively hallucinating. TREATMENT PLAN: We will place the patient on 30 days certificate. Also, we will continue to monitor her behavior closely and continue to follow up. JOB# [id number]
[2020-02-08] MEDS: Levothyroxine 0.1 Mg Tab PO SCH (06:44)
--- NOTE | 2020-02-08 07:18 | General Progress Note ---
Subjective - Review of Systems Service Date: 02/06/20 Subjective: Awake, Alert, no acute distress. inconsistent with taking her medication T 98.4 P 80 R 20 BP 130/78 Objective - Physical Exam Vitals and I&O: Vital Signs Temp 0 F 02/07/20 21:06 Pulse 84 02/07/20 17:08 Resp 18 02/07/20 20:00 BP 124/73 02/07/20 17:08 Pulse Ox 98 02/06/20 15:20 Intake & Output 02/07/20 02/08/20 02/08/20 18:59 06:59 18:59 Intake Total 1200 120 Balance 1200 120 Intake: Oral 1200 120 Other: # Voids 4 1 # Bowel Movements 0 0 Active Medications: Current Medications Acetaminophen (Tylenol) 650 mg PO Q4H PRN PRN Reason: Pain (Mild 1-3) Stop: 03/22/20 00:51 Al Hydrox/Mg Hydrox/Simethicone (Maalox) 30 ml PO Q4HR PRN PRN Reason: GI DISTRESS Stop: 03/22/20 00:51 Amlodipine Besylate (Norvasc) 5 mg PO DAILY [facility] Stop: 03/29/20 08:59 Last Admin: 02/07/20 08:04 Dose: 5 mg Levothyroxine Sodium (Synthroid) 0.1 mg PO QDAC [facility] Stop: 03/23/20 07:29 Last Admin: 02/08/20 06:44 Dose: 0.1 mg Lorazepam (Ativan) 0.5 mg PO Q4HR PRN; Protocol PRN Reason: Agitation Stop: 04/05/20 18:49 Last Admin: 02/07/20 21:01 Dose: 0.5 mg Magnesium Hydroxide (Milk Of Magnesia) 30 ml PO HS PRN PRN Reason: Constipation Metoprolol Tartrate (Lopressor) 25 mg PO BID [facility] Stop: 03/22/20 08:59 Last Admin: 02/07/20 17:08 Dose: 25 mg Olanzapine (Zyprexa) 10 mg PO DAILY [facility]; Protocol Stop: 03/22/20 12:44 Last Admin: 02/07/20 08:04 Dose: 10 mg Olanzapine (Zyprexa) 15 mg PO HS [facility] Stop: 04/01/20 20:59 Last Admin: 02/07/20 21:01 Dose: 15 mg Trazodone HCl (Desyrel) 50 mg PO HS [facility]; Protocol Stop: 03/30/20 20:59 Last Admin: 02/07/20 21:01 Dose: 50 mg Valproate Sodium (Depakene) 250 mg PO BID [facility]; Protocol Stop: 03/22/20 16:59 Last Admin: 02/07/20 17:08 Dose: 250 mg General: Alert, No acute distress HEENT: Atraumatic, PERRLA Neck: Supple Cardiovascular: Regular rate, Normal S1, Normal S2 Lungs: Clear to auscultation Abdomen: Bowel sounds, Soft Extremities: no Clubbing, no Cyanosis, no Edema Neurological: Normal gait Assessment/Plan - Assessment Assessment: psychosis htn stable hypothyroidism unsteady gait cognitive communication deficit dementia schizophrenia schizoaffective disorder - Plan Plan: will admit to [facility] for further evaluation and treatment continue current treatment add clonidine prn start norvasc 5mg po daily Nutritional Asmnt/Malnutr-PDOC - Dietary Evaluation Malnutrition Findings (Please click <Entered> for more info): Nutritional Asmnt/Malnutrition Start: 01/26/20 14: 36 Text: Status: Complete Freq: Protocol: Document 01/26/20 14:36 SHALOM (Rec: 01/26/20 14:51 SHALOM [id number]) Nutritional Asmnt/Malnutrition Patient General Information Nutritional Screening Low Risk Diagnosis Psychosis Pertinent Medical Hx/Surgical Hx Hypothyroidism, lack of coordination, hypertension, unsteady on feet. Subjective Information Pt is a 74-year-old female admitted on d/t agitation, irritability, and aggressive behavior. Pt is eating an estimated 77% of meals Per Meal/Nutrition Activity Record. Dietary is currently providing an estimated 2300 kcals and 106 gm Pro, per Pt PO intake this is providing an estimated 1770 kcals and 82 gm Pro to meet 100+% kcal and 100+% Pro needs . Per Meal/Nutrition Activity report, pt. refused breakfast and lunch 01/24 but ate 100% of dinner. Per nurse Negin note (01/24), pt. also refused medication and was noted with non-directable behavior, hyperverbal and confused Pt s refusal of meals morning of 01/24 possibly related to notes paranoid behavior. Pt was asleep in room at time of visit. Christy seen pt roaming the halls in passing, very active and talkative. Anthropometrics HT: 54 WT: 136 LB (61.81 kg) BMI: 23.49 (Normal) GI/ Skin Integrity GI: WNL, Soft, Flat, Non- tender BM: 01/24 x4 I/O: 1520/Not Noted Skin: WNL, Intact Timoteo: 17 Diet Order: Chopped, LOI Estimated Energy Needs: ( Geriatric, CBW) 3176-4749 kcals (25-30 kcals/ kg) 60-75g Pro (1.0-1.2 g/kg) 4085-3515 ml (25-30 ml/kg) Current Diet Order/ Nutrition Support Chopped, LOI Pertinent Medications Maalox (PRN), Synthroid, MOM ( PRN), Lopressor Pertinent Labs 01/20: A1C 6.1%, Glucose 119, K 3.2, T Pro 6.0 Nutritional Hx/Data Height 1.63 m Height (Calculated Centimeters) 162.6 Current Weight (lbs) 62.142 kg Weight (Calculated Kilograms) 62.1 Weight (Calculated Grams) 92048.2 [place] Body Weight 120 LB % [place] Body Weight 113 Body Mass Index (BMI) 23.5 Weight Status Approriate GI Symptoms GI Symptoms None Last BM 01/24 x4 Skin Integrity/Comment: Skin: WNL, Intact Timoteo: 17 Current %PO Good (75-100%) Estimated Nutritional Goals BEE in Kcals: Using Current wt Calories/Kcals/Kg 25-30 Kcals Calculated 0218-2512 Protein: Using Current wt Protein g/k.0-1.2 Protein Calculated 60-75 Fluid: ml 0986-8019 ml (25-30 ml/kg) Nutritional Problem 1. Problem Problem Altered nutrition-related lab values Etiology related to endocrinopathy Signs/Symptoms: as evidenced by labs (01/20 A1C 6.1%). Malnutrition Related to Morbid Obesity Malnutrition related to morbid obesity No Intervention/Recommendation Comments Continue Chopped, LOI diet as tolerated. Expected Outcomes/Goals Expected Outcomes/Goals 1.PO intake to continue to meet 75% of estimated nutritional needs. 2.Monitor PO intake, wt, nutrition related labs, and skin integrity. 3.F/U as low risk in 7-10 days , 02/01-02/04.
--- NOTE | 2020-02-08 07:20 | General Progress Note ---
Subjective - Review of Systems Service Date: 02/08/20 Subjective: Awake, Alert, no acute distress. inconsistent with taking her medication T 98.4 P 84 R 20 BP 124/73 Objective - Physical Exam Vitals and I&O: Vital Signs Temp 0 F 02/07/20 21:06 Pulse 84 02/07/20 17:08 Resp 18 02/07/20 20:00 BP 124/73 02/07/20 17:08 Pulse Ox 98 02/06/20 15:20 Intake & Output 02/07/20 02/08/20 02/08/20 18:59 06:59 18:59 Intake Total 1200 120 Balance 1200 120 Intake: Oral 1200 120 Other: # Voids 4 1 # Bowel Movements 0 0 Active Medications: Current Medications Acetaminophen (Tylenol) 650 mg PO Q4H PRN PRN Reason: Pain (Mild 1-3) Stop: 03/22/20 00:51 Al Hydrox/Mg Hydrox/Simethicone (Maalox) 30 ml PO Q4HR PRN PRN Reason: GI DISTRESS Stop: 03/22/20 00:51 Amlodipine Besylate (Norvasc) 5 mg PO DAILY [facility] Stop: 03/29/20 08:59 Last Admin: 02/07/20 08:04 Dose: 5 mg Levothyroxine Sodium (Synthroid) 0.1 mg PO QDAC [facility] Stop: 03/23/20 07:29 Last Admin: 02/08/20 06:44 Dose: 0.1 mg Lorazepam (Ativan) 0.5 mg PO Q4HR PRN; Protocol PRN Reason: Agitation Stop: 04/05/20 18:49 Last Admin: 02/07/20 21:01 Dose: 0.5 mg Magnesium Hydroxide (Milk Of Magnesia) 30 ml PO HS PRN PRN Reason: Constipation Metoprolol Tartrate (Lopressor) 25 mg PO BID [facility] Stop: 03/22/20 08:59 Last Admin: 02/07/20 17:08 Dose: 25 mg Olanzapine (Zyprexa) 10 mg PO DAILY [facility]; Protocol Stop: 03/22/20 12:44 Last Admin: 02/07/20 08:04 Dose: 10 mg Olanzapine (Zyprexa) 15 mg PO HS [facility] Stop: 04/01/20 20:59 Last Admin: 02/07/20 21:01 Dose: 15 mg Trazodone HCl (Desyrel) 50 mg PO HS [facility]; Protocol Stop: 03/30/20 20:59 Last Admin: 02/07/20 21:01 Dose: 50 mg Valproate Sodium (Depakene) 250 mg PO BID [facility]; Protocol Stop: 03/22/20 16:59 Last Admin: 02/07/20 17:08 Dose: 250 mg General: Alert, No acute distress HEENT: Atraumatic, PERRLA Neck: Supple Cardiovascular: Regular rate, Normal S1, Normal S2 Lungs: Clear to auscultation Abdomen: Bowel sounds, Soft Extremities: no Clubbing, no Cyanosis, no Edema Neurological: Normal gait Assessment/Plan - Assessment Assessment: psychosis htn stable hypothyroidism unsteady gait cognitive communication deficit dementia schizophrenia schizoaffective disorder - Plan Plan: will admit to [facility] for further evaluation and treatment continue current treatment add clonidine prn start norvasc 5mg po daily Nutritional Asmnt/Malnutr-PDOC - Dietary Evaluation Malnutrition Findings (Please click <Entered> for more info): Nutritional Asmnt/Malnutrition Start: 01/26/20 14: 36 Text: Status: Complete Freq: Protocol: Document 01/26/20 14:36 SHALOM (Rec: 01/26/20 14:51 SHALOM [id number]) Nutritional Asmnt/Malnutrition Patient General Information Nutritional Screening Low Risk Diagnosis Psychosis Pertinent Medical Hx/Surgical Hx Hypothyroidism, lack of coordination, hypertension, unsteady on feet. Subjective Information Pt is a 74-year-old female admitted on d/t agitation, irritability, and aggressive behavior. Pt is eating an estimated 77% of meals Per Meal/Nutrition Activity Record. Dietary is currently providing an estimated 2300 kcals and 106 gm Pro, per Pt PO intake this is providing an estimated 1770 kcals and 82 gm Pro to meet 100+% kcal and 100+% Pro needs . Per Meal/Nutrition Activity report, pt. refused breakfast and lunch 01/24 but ate 100% of dinner. Per nurse Negin note (01/24), pt. also refused medication and was noted with non-directable behavior, hyperverbal and confused Pt s refusal of meals morning of 01/24 possibly related to notes paranoid behavior. Pt was asleep in room at time of visit. Christy seen pt roaming the halls in passing, very active and talkative. Anthropometrics HT: 54 WT: 136 LB (61.81 kg) BMI: 23.49 (Normal) GI/ Skin Integrity GI: WNL, Soft, Flat, Non- tender BM: 01/24 x4 I/O: 1520/Not Noted Skin: WNL, Intact Timoteo: 17 Diet Order: Chopped, LOI Estimated Energy Needs: ( Geriatric, CBW) 7413-7819 kcals (25-30 kcals/ kg) 60-75g Pro (1.0-1.2 g/kg) 3958-4828 ml (25-30 ml/kg) Current Diet Order/ Nutrition Support Chopped, LOI Pertinent Medications Maalox (PRN), Synthroid, MOM ( PRN), Lopressor Pertinent Labs 01/20: A1C 6.1%, Glucose 119, K 3.2, T Pro 6.0 Nutritional Hx/Data Height 1.63 m Height (Calculated Centimeters) 162.6 Current Weight (lbs) 62.142 kg Weight (Calculated Kilograms) 62.1 Weight (Calculated Grams) 42568.2 [place] Body Weight 120 LB % [place] Body Weight 113 Body Mass Index (BMI) 23.5 Weight Status Approriate GI Symptoms GI Symptoms None Last BM 01/24 x4 Skin Integrity/Comment: Skin: WNL, Intact Timoteo: 17 Current %PO Good (75-100%) Estimated Nutritional Goals BEE in Kcals: Using Current wt Calories/Kcals/Kg 25-30 Kcals Calculated 2029-1467 Protein: Using Current wt Protein g/k.0-1.2 Protein Calculated 60-75 Fluid: ml 9186-5942 ml (25-30 ml/kg) Nutritional Problem 1. Problem Problem Altered nutrition-related lab values Etiology related to endocrinopathy Signs/Symptoms: as evidenced by labs (01/20 A1C 6.1%). Malnutrition Related to Morbid Obesity Malnutrition related to morbid obesity No Intervention/Recommendation Comments Continue Chopped, LOI diet as tolerated. Expected Outcomes/Goals Expected Outcomes/Goals 1.PO intake to continue to meet 75% of estimated nutritional needs. 2.Monitor PO intake, wt, nutrition related labs, and skin integrity. 3.F/U as low risk in 7-10 days , 02/01-02/04.
--- NOTE | 2020-02-09 00:01 | Progress Notes ---
DATE: 02/08/2020 Case was discussed with staff of the patient, reviewed records. The patient continues to be irritable, talking loud, cannot be interviewed. Every time, she has a reason either she is praying or eating, loud, very irritable. She refused to take her medications. She always ended up taking it. No side effects with the medication, no sedation, no nausea, no extrapyramidal symptoms. Continues to have poor insight, easily agitated, rambling speech, unable to carry on a conversation and I will be increasing her Zyprexa to 20 mg at bedtime. We will continue outpatient group therapy, milieu therapy, adjust medication as needed. JOB# [id number]
[2020-02-09] MEDS: Levothyroxine 0.1 Mg Tab PO SCH (06:45)
--- NOTE | 2020-02-09 07:25 | General Progress Note ---
Subjective - Review of Systems Service Date: 02/09/20 Subjective: Awake, Alert, no acute distress. Vitals stable T 97.4 P 59 R 18 BP 122/59 Objective - Physical Exam Vitals and I&O: Vital Signs Temp 97.4 F 02/09/20 05:58 Pulse 59 02/09/20 05:58 Resp 18 02/09/20 05:58 BP 122/59 02/09/20 05:58 Pulse Ox 98 02/06/20 15:20 Intake & Output 02/08/20 02/09/20 02/09/20 18:59 06:59 18:59 Intake Total 1000 240 Balance 1000 240 Intake: Oral 1000 240 Other: # Voids 4 2 # Bowel Movements 1 Active Medications: Current Medications Acetaminophen (Tylenol) 650 mg PO Q4H PRN PRN Reason: Pain (Mild 1-3) Stop: 03/22/20 00:51 Al Hydrox/Mg Hydrox/Simethicone (Maalox) 30 ml PO Q4HR PRN PRN Reason: GI DISTRESS Stop: 03/22/20 00:51 Amlodipine Besylate (Norvasc) 5 mg PO DAILY [facility] Stop: 03/29/20 08:59 Last Admin: 02/08/20 09:32 Dose: Not Given Levothyroxine Sodium (Synthroid) 0.1 mg PO QDAC [facility] Stop: 03/23/20 07:29 Last Admin: 02/09/20 06:45 Dose: Not Given Lorazepam (Ativan) 0.5 mg PO Q4HR PRN; Protocol PRN Reason: Agitation Stop: 04/05/20 18:49 Last Admin: 02/08/20 21:08 Dose: 0.5 mg Magnesium Hydroxide (Milk Of Magnesia) 30 ml PO HS PRN PRN Reason: Constipation Metoprolol Tartrate (Lopressor) 25 mg PO BID [facility] Stop: 03/22/20 08:59 Last Admin: 02/08/20 16:17 Dose: 25 mg Olanzapine (Zyprexa) 10 mg PO DAILY [facility]; Protocol Stop: 03/22/20 12:44 Last Admin: 02/08/20 08:43 Dose: 10 mg Olanzapine (Zyprexa) 20 mg PO HS [facility] Stop: 04/08/20 20:59 Last Admin: 02/08/20 21:07 Dose: 20 mg Trazodone HCl (Desyrel) 50 mg PO HS [facility]; Protocol Stop: 03/30/20 20:59 Last Admin: 02/08/20 21:07 Dose: 50 mg Valproate Sodium (Depakene) 250 mg PO BID [facility]; Protocol Stop: 03/22/20 16:59 Last Admin: 02/08/20 16:18 Dose: 250 mg General: Alert, No acute distress HEENT: Atraumatic, PERRLA Neck: Supple Cardiovascular: Regular rate, Normal S1, Normal S2 Lungs: Clear to auscultation Abdomen: Bowel sounds, Soft Extremities: no Clubbing, no Cyanosis, no Edema Neurological: Normal gait Assessment/Plan - Assessment Assessment: psychosis htn stable hypothyroidism unsteady gait cognitive communication deficit dementia schizophrenia schizoaffective disorder - Plan Plan: will admit to [facility] for further evaluation and treatment continue current treatment add clonidine prn start norvasc 5mg po daily Nutritional Asmnt/Malnutr-PDOC - Dietary Evaluation Malnutrition Findings (Please click <Entered> for more info): Nutritional Asmnt/Malnutrition Start: 01/26/20 14: 36 Text: Status: Complete Freq: Protocol: Document 01/26/20 14:36 SHALOM (Rec: 01/26/20 14:51 SHALOM [id number]) Nutritional Asmnt/Malnutrition Patient General Information Nutritional Screening Low Risk Diagnosis Psychosis Pertinent Medical Hx/Surgical Hx Hypothyroidism, lack of coordination, hypertension, unsteady on feet. Subjective Information Pt is a 74-year-old female admitted on d/t agitation, irritability, and aggressive behavior. Pt is eating an estimated 77% of meals Per Meal/Nutrition Activity Record. Dietary is currently providing an estimated 2300 kcals and 106 gm Pro, per Pt PO intake this is providing an estimated 1770 kcals and 82 gm Pro to meet 100+% kcal and 100+% Pro needs . Per Meal/Nutrition Activity report, pt. refused breakfast and lunch 01/24 but ate 100% of dinner. Per nurse Negin note (01/24), pt. also refused medication and was noted with non-directable behavior, hyperverbal and confused Pt s refusal of meals morning of 01/24 possibly related to notes paranoid behavior. Pt was asleep in room at time of visit. Christy seen pt roaming the halls in passing, very active and talkative. Anthropometrics HT: 54 WT: 136 LB (61.81 kg) BMI: 23.49 (Normal) GI/ Skin Integrity GI: WNL, Soft, Flat, Non- tender BM: 01/24 x4 I/O: 1520/Not Noted Skin: WNL, Intact Timoteo: 17 Diet Order: Chopped, LOI Estimated Energy Needs: ( Geriatric, CBW) 9960-6084 kcals (25-30 kcals/ kg) 60-75g Pro (1.0-1.2 g/kg) 5914-2920 ml (25-30 ml/kg) Current Diet Order/ Nutrition Support Chopped, LOI Pertinent Medications Maalox (PRN), Synthroid, MOM ( PRN), Lopressor Pertinent Labs 01/20: A1C 6.1%, Glucose 119, K 3.2, T Pro 6.0 Nutritional Hx/Data Height 1.63 m Height (Calculated Centimeters) 162.6 Current Weight (lbs) 62.142 kg Weight (Calculated Kilograms) 62.1 Weight (Calculated Grams) 57985.2 [place] Body Weight 120 LB % [place] Body Weight 113 Body Mass Index (BMI) 23.5 Weight Status Approriate GI Symptoms GI Symptoms None Last BM 01/24 x4 Skin Integrity/Comment: Skin: WNL, Intact Timoteo: 17 Current %PO Good (75-100%) Estimated Nutritional Goals BEE in Kcals: Using Current wt Calories/Kcals/Kg 25-30 Kcals Calculated 3151-2647 Protein: Using Current wt Protein g/k.0-1.2 Protein Calculated 60-75 Fluid: ml 0810-8673 ml (25-30 ml/kg) Nutritional Problem 1. Problem Problem Altered nutrition-related lab values Etiology related to endocrinopathy Signs/Symptoms: as evidenced by labs (01/20 A1C 6.1%). Malnutrition Related to Morbid Obesity Malnutrition related to morbid obesity No Intervention/Recommendation Comments Continue Chopped, LOI diet as tolerated. Expected Outcomes/Goals Expected Outcomes/Goals 1.PO intake to continue to meet 75% of estimated nutritional needs. 2.Monitor PO intake, wt, nutrition related labs, and skin integrity. 3.F/U as low risk in 7-10 days , 02/01-02/04.
--- NOTE | 2020-02-09 19:01 | Progress Notes ---
DATE: 02/09/2020 Case was discussed with staff, reviewed records. The patient continues to be irritable. I tried talk to her, she said, ooh you cannot see I am eating, cannot talk to you." She always have excuses not to talk. Continue to look disheveled, disorganized, and internally preoccupied. I increased the dose yesterday of Zyprexa to 20 mg at bedtime and she is taking all her medications now. I will be increasing Depakote to 3 times a day to help improve her impulsive, irritable, agitated behavior. No side effects with the medication, no sedation, no nausea, no extrapyramidal symptoms. I will continue to work with the patient in group therapy, milieu therapy, and adjust the medications as needed. JOB# [id number]
[2020-02-10] MEDS: Levothyroxine 0.1 Mg Tab PO SCH (06:48)
--- NOTE | 2020-02-10 09:57 | General Progress Note ---
Subjective - Review of Systems Service Date: 02/10/20 Subjective: Awake, Alert, no acute distress. Vitals stable T 97.3 P 57 R 16 BP 122/64 Objective - Physical Exam Vitals and I&O: Vital Signs Temp 97.3 F 02/10/20 06:27 Pulse 57 02/10/20 06:27 Resp 16 02/10/20 08:00 BP 122/64 02/10/20 06:27 Pulse Ox 99 02/10/20 06:27 Intake & Output 02/09/20 02/10/20 02/10/20 18:59 06:59 18:59 Intake Total 850 120 Balance 850 120 Intake: Oral 850 120 Other: # Voids 3 2 # Bowel Movements 1 0 Active Medications: Current Medications Acetaminophen (Tylenol) 650 mg PO Q4H PRN PRN Reason: Pain (Mild 1-3) Stop: 03/22/20 00:51 Al Hydrox/Mg Hydrox/Simethicone (Maalox) 30 ml PO Q4HR PRN PRN Reason: GI DISTRESS Stop: 03/22/20 00:51 Amlodipine Besylate (Norvasc) 5 mg PO DAILY [facility] Stop: 03/29/20 08:59 Last Admin: 02/10/20 09:04 Dose: Not Given Levothyroxine Sodium (Synthroid) 0.1 mg PO QDAC [facility] Stop: 03/23/20 07:29 Last Admin: 02/10/20 06:48 Dose: Not Given Lorazepam (Ativan) 0.5 mg PO Q4HR PRN; Protocol PRN Reason: Agitation Stop: 04/05/20 18:49 Last Admin: 02/09/20 16:36 Dose: 0.5 mg Magnesium Hydroxide (Milk Of Magnesia) 30 ml PO HS PRN PRN Reason: Constipation Metoprolol Tartrate (Lopressor) 25 mg PO BID [facility] Stop: 03/22/20 08:59 Last Admin: 02/10/20 09:03 Dose: Not Given Olanzapine (Zyprexa) 10 mg PO DAILY [facility]; Protocol Stop: 03/22/20 12:44 Last Admin: 02/10/20 09:03 Dose: 10 mg Olanzapine (Zyprexa) 20 mg PO HS [facility] Stop: 04/08/20 20:59 Last Admin: 02/09/20 21:22 Dose: 20 mg Trazodone HCl (Desyrel) 50 mg PO HS [facility]; Protocol Stop: 03/30/20 20:59 Last Admin: 02/09/20 21:22 Dose: 50 mg Valproate Sodium (Depakene) 250 mg PO TID [facility]; Protocol Stop: 04/09/20 13:59 Last Admin: 02/10/20 09:04 Dose: 250 mg General: Alert, No acute distress HEENT: Atraumatic, PERRLA Neck: Supple Cardiovascular: Regular rate, Normal S1, Normal S2 Lungs: Clear to auscultation Abdomen: Bowel sounds, Soft Extremities: no Clubbing, no Cyanosis, no Edema Neurological: Normal gait Assessment/Plan - Assessment Assessment: psychosis htn stable hypothyroidism unsteady gait cognitive communication deficit dementia schizophrenia schizoaffective disorder - Plan Plan: will admit to [facility] for further evaluation and treatment continue current treatment add clonidine prn start norvasc 5mg po daily Nutritional Asmnt/Malnutr-PDOC - Dietary Evaluation Malnutrition Findings (Please click <Entered> for more info): Nutritional Asmnt/Malnutrition Start: 01/26/20 14: 36 Text: Status: Complete Freq: Protocol: Document 01/26/20 14:36 SHALOM (Rec: 01/26/20 14:51 SHALOM [id number]) Nutritional Asmnt/Malnutrition Patient General Information Nutritional Screening Low Risk Diagnosis Psychosis Pertinent Medical Hx/Surgical Hx Hypothyroidism, lack of coordination, hypertension, unsteady on feet. Subjective Information Pt is a 74-year-old female admitted on d/t agitation, irritability, and aggressive behavior. Pt is eating an estimated 77% of meals Per Meal/Nutrition Activity Record. Dietary is currently providing an estimated 2300 kcals and 106 gm Pro, per Pt PO intake this is providing an estimated 1770 kcals and 82 gm Pro to meet 100+% kcal and 100+% Pro needs . Per Meal/Nutrition Activity report, pt. refused breakfast and lunch 01/24 but ate 100% of dinner. Per nurse Negin note (01/24), pt. also refused medication and was noted with non-directable behavior, hyperverbal and confused Pt s refusal of meals morning of 01/24 possibly related to notes paranoid behavior. Pt was asleep in room at time of visit. Christy seen pt roaming the halls in passing, very active and talkative. Anthropometrics HT: 54 WT: 136 LB (61.81 kg) BMI: 23.49 (Normal) GI/ Skin Integrity GI: WNL, Soft, Flat, Non- tender BM: 01/24 x4 I/O: 1520/Not Noted Skin: WNL, Intact Timoteo: 17 Diet Order: Chopped, LOI Estimated Energy Needs: ( Geriatric, CBW) 3151-6041 kcals (25-30 kcals/ kg) 60-75g Pro (1.0-1.2 g/kg) 3502-1892 ml (25-30 ml/kg) Current Diet Order/ Nutrition Support Chopped, LOI Pertinent Medications Maalox (PRN), Synthroid, MOM ( PRN), Lopressor Pertinent Labs 01/20: A1C 6.1%, Glucose 119, K 3.2, T Pro 6.0 Nutritional Hx/Data Height 1.63 m Height (Calculated Centimeters) 162.6 Current Weight (lbs) 62.142 kg Weight (Calculated Kilograms) 62.1 Weight (Calculated Grams) 82194.2 [place] Body Weight 120 LB % [place] Body Weight 113 Body Mass Index (BMI) 23.5 Weight Status Approriate GI Symptoms GI Symptoms None Last BM 01/24 x4 Skin Integrity/Comment: Skin: WNL, Intact Timoteo: 17 Current %PO Good (75-100%) Estimated Nutritional Goals BEE in Kcals: Using Current wt Calories/Kcals/Kg 25-30 Kcals Calculated 3833-6243 Protein: Using Current wt Protein g/k.0-1.2 Protein Calculated 60-75 Fluid: ml 1704-0514 ml (25-30 ml/kg) Nutritional Problem 1. Problem Problem Altered nutrition-related lab values Etiology related to endocrinopathy Signs/Symptoms: as evidenced by labs (01/20 A1C 6.1%). Malnutrition Related to Morbid Obesity Malnutrition related to morbid obesity No Intervention/Recommendation Comments Continue Chopped, LOI diet as tolerated. Expected Outcomes/Goals Expected Outcomes/Goals 1.PO intake to continue to meet 75% of estimated nutritional needs. 2.Monitor PO intake, wt, nutrition related labs, and skin integrity. 3.F/U as low risk in 7-10 days , 02/01-02/04.
--- NOTE | 2020-02-11 00:17 | Progress Notes ---
DATE: 02/10/2020 Case was discussed with staff of the patient, reviewed records. The patient is calmer today. She has not kicked me out, she is waiting for lunch and she knew that lunch is at 12. She is calm, cooperative. She has been compliant with the medication with no side effects. She seems to be showing progress. She is not as agitated as she was yesterday, so she continued to do well. We will be working on discharge plan. No side effects with the medication, no sedation, no nausea, no extrapyramidal symptoms. Sleeping better, eating better. We will continue the patient in group therapy, milieu therapy, and adjust medication as needed. JOB# [id number] MILEY
[2020-02-11] MEDS: Levothyroxine 0.1 Mg Tab PO SCH (06:44)
--- NOTE | 2020-02-11 07:46 | General Progress Note ---
Subjective - Review of Systems Service Date: 02/11/20 Subjective: Awake, Alert, no acute distress. Vitals stable T 97.3 P 110 R 18 BP 177/77 Objective - Physical Exam Vitals and I&O: Vital Signs Temp 98.1 F 02/10/20 14:00 Pulse 61 02/10/20 14:00 Resp 18 02/11/20 06:57 BP 177/77 02/11/20 06:57 Pulse Ox 99 02/10/20 14:00 Intake & Output 02/10/20 02/11/20 02/11/20 18:59 06:59 18:59 Intake Total 120 Balance 120 Intake: Oral 120 Other: # Voids 2 # Bowel Movements 0 Active Medications: Current Medications Acetaminophen (Tylenol) 650 mg PO Q4H PRN PRN Reason: Pain (Mild 1-3) Stop: 03/22/20 00:51 Al Hydrox/Mg Hydrox/Simethicone (Maalox) 30 ml PO Q4HR PRN PRN Reason: GI DISTRESS Stop: 03/22/20 00:51 Amlodipine Besylate (Norvasc) 5 mg PO DAILY [facility] Stop: 03/29/20 08:59 Last Admin: 02/10/20 09:04 Dose: Not Given Levothyroxine Sodium (Synthroid) 0.1 mg PO QDAC [facility] Stop: 03/23/20 07:29 Last Admin: 02/11/20 06:44 Dose: Not Given Lorazepam (Ativan) 0.5 mg PO Q4HR PRN; Protocol PRN Reason: Agitation Stop: 04/05/20 18:49 Last Admin: 02/09/20 16:36 Dose: 0.5 mg Magnesium Hydroxide (Milk Of Magnesia) 30 ml PO HS PRN PRN Reason: Constipation Metoprolol Tartrate (Lopressor) 25 mg PO BID [facility] Stop: 03/22/20 08:59 Last Admin: 02/10/20 17:51 Dose: Not Given Olanzapine (Zyprexa) 10 mg PO DAILY [facility]; Protocol Stop: 03/22/20 12:44 Last Admin: 02/10/20 09:03 Dose: 10 mg Olanzapine (Zyprexa) 20 mg PO HS [facility] Stop: 04/08/20 20:59 Last Admin: 02/10/20 21:36 Dose: 20 mg Trazodone HCl (Desyrel) 50 mg PO HS [facility]; Protocol Stop: 03/30/20 20:59 Last Admin: 02/10/20 21:36 Dose: 50 mg Valproate Sodium (Depakene) 250 mg PO TID [facility]; Protocol Stop: 04/09/20 13:59 Last Admin: 02/10/20 21:45 Dose: 250 mg General: Alert, No acute distress HEENT: Atraumatic, PERRLA Neck: Supple Cardiovascular: Regular rate, Normal S1, Normal S2 Lungs: Clear to auscultation Abdomen: Bowel sounds, Soft Extremities: no Clubbing, no Cyanosis, no Edema Neurological: Normal gait Assessment/Plan - Assessment Assessment: psychosis htn elevated hypothyroidism unsteady gait cognitive communication deficit dementia schizophrenia schizoaffective disorder - Plan Plan: will admit to [facility] for further evaluation and treatment continue current treatment add clonidine prn start norvasc 5mg po daily Nutritional Asmnt/Malnutr-PDOC - Dietary Evaluation Malnutrition Findings (Please click <Entered> for more info): Nutritional Asmnt/Malnutrition Start: 01/26/20 14: 36 Text: Status: Complete Freq: Protocol: Document 01/26/20 14:36 SHALOM (Rec: 01/26/20 14:51 SHALOM [id number]) Nutritional Asmnt/Malnutrition Patient General Information Nutritional Screening Low Risk Diagnosis Psychosis Pertinent Medical Hx/Surgical Hx Hypothyroidism, lack of coordination, hypertension, unsteady on feet. Subjective Information Pt is a 74-year-old female admitted on d/t agitation, irritability, and aggressive behavior. Pt is eating an estimated 77% of meals Per Meal/Nutrition Activity Record. Dietary is currently providing an estimated 2300 kcals and 106 gm Pro, per Pt PO intake this is providing an estimated 1770 kcals and 82 gm Pro to meet 100+% kcal and 100+% Pro needs . Per Meal/Nutrition Activity report, pt. refused breakfast and lunch 01/24 but ate 100% of dinner. Per nurse Negin note (01/24), pt. also refused medication and was noted with non-directable behavior, hyperverbal and confused Pt s refusal of meals morning of 01/24 possibly related to notes paranoid behavior. Pt was asleep in room at time of visit. Christy seen pt roaming the halls in passing, very active and talkative. Anthropometrics HT: 54 WT: 136 LB (61.81 kg) BMI: 23.49 (Normal) GI/ Skin Integrity GI: WNL, Soft, Flat, Non- tender BM: 01/24 x4 I/O: 1520/Not Noted Skin: WNL, Intact Timoteo: 17 Diet Order: Chopped, LOI Estimated Energy Needs: ( Geriatric, CBW) 1544-9790 kcals (25-30 kcals/ kg) 60-75g Pro (1.0-1.2 g/kg) 1007-6701 ml (25-30 ml/kg) Current Diet Order/ Nutrition Support Chopped, LOI Pertinent Medications Maalox (PRN), Synthroid, MOM ( PRN), Lopressor Pertinent Labs 01/20: A1C 6.1%, Glucose 119, K 3.2, T Pro 6.0 Nutritional Hx/Data Height 1.63 m Height (Calculated Centimeters) 162.6 Current Weight (lbs) 62.142 kg Weight (Calculated Kilograms) 62.1 Weight (Calculated Grams) 38571.2 [place] Body Weight 120 LB % [place] Body Weight 113 Body Mass Index (BMI) 23.5 Weight Status Approriate GI Symptoms GI Symptoms None Last BM 01/24 x4 Skin Integrity/Comment: Skin: WNL, Intact Timoteo: 17 Current %PO Good (75-100%) Estimated Nutritional Goals BEE in Kcals: Using Current wt Calories/Kcals/Kg 25-30 Kcals Calculated 5336-4458 Protein: Using Current wt Protein g/k.0-1.2 Protein Calculated 60-75 Fluid: ml 4014-9557 ml (25-30 ml/kg) Nutritional Problem 1. Problem Problem Altered nutrition-related lab values Etiology related to endocrinopathy Signs/Symptoms: as evidenced by labs (01/20 A1C 6.1%). Malnutrition Related to Morbid Obesity Malnutrition related to morbid obesity No Intervention/Recommendation Comments Continue Chopped, LOI diet as tolerated. Expected Outcomes/Goals Expected Outcomes/Goals 1.PO intake to continue to meet 75% of estimated nutritional needs. 2.Monitor PO intake, wt, nutrition related labs, and skin integrity. 3.F/U as low risk in 7-10 days , 02/01-02/04.
--- NOTE | 2020-02-11 15:05 | Progress Notes ---
DATE: 02/11/2020 Case was discussed with staff of the patient and reviewed records. The patient is slowly starting to be calmer, in general not as loud, not as irritable, not as aggressive. She has been more compliant with the medication with no side effects, tolerating increase in olanzapine to 20 mg at bedtime that was done 2 days ago with no side effects. Also, take 10 mg at bedtime. No side effects with the medication, no sedation, no nausea, no extrapyramidal symptoms. Also, changed her Depakote to liquid valproic acid 250 mg 3 times a day. No side effects with the medication, no sedation, no nausea, no extrapyramidal symptoms. We will continue outpatient group therapy, milieu therapy, and adjust medications as needed. JOB# [id number]
[2020-02-12] MEDS: Levothyroxine 0.1 Mg Tab PO SCH (06:39)
--- NOTE | 2020-02-12 08:09 | General Progress Note ---
Subjective - Review of Systems Service Date: 02/12/20 Subjective: Awake, Alert, no acute distress. Vitals stable T 98.1 P 64 R 18 BP 111/58 Objective - Physical Exam Vitals and I&O: Vital Signs Temp 98.1 F 02/11/20 20:14 Pulse 64 02/11/20 20:14 Resp 18 02/11/20 20:14 BP 111/58 02/11/20 20:14 Pulse Ox 98 02/11/20 14:00 Intake & Output 02/11/20 02/12/20 02/12/20 18:59 06:59 18:59 Intake Total 1200 240 Balance 1200 240 Intake: Oral 1200 240 Other: # Voids 4 2 # Bowel Movements 1 Active Medications: Current Medications Acetaminophen (Tylenol) 650 mg PO Q4H PRN PRN Reason: Pain (Mild 1-3) Stop: 03/22/20 00:51 Al Hydrox/Mg Hydrox/Simethicone (Maalox) 30 ml PO Q4HR PRN PRN Reason: GI DISTRESS Stop: 03/22/20 00:51 Amlodipine Besylate (Norvasc) 5 mg PO DAILY [facility] Stop: 03/29/20 08:59 Last Admin: 02/11/20 08:12 Dose: 5 mg Levothyroxine Sodium (Synthroid) 0.1 mg PO QDAC [facility] Stop: 03/23/20 07:29 Last Admin: 02/12/20 06:39 Dose: 0.1 mg Lorazepam (Ativan) 0.5 mg PO Q4HR PRN; Protocol PRN Reason: Agitation Stop: 04/05/20 18:49 Last Admin: 02/11/20 08:12 Dose: 0.5 mg Magnesium Hydroxide (Milk Of Magnesia) 30 ml PO HS PRN PRN Reason: Constipation Metoprolol Tartrate (Lopressor) 25 mg PO BID [facility] Stop: 03/22/20 08:59 Last Admin: 02/11/20 16:59 Dose: Not Given Olanzapine (Zyprexa) 10 mg PO DAILY [facility]; Protocol Stop: 03/22/20 12:44 Last Admin: 02/11/20 08:14 Dose: 10 mg Olanzapine (Zyprexa) 20 mg PO HS [facility] Stop: 04/08/20 20:59 Last Admin: 02/11/20 21:13 Dose: 20 mg Trazodone HCl (Desyrel) 50 mg PO HS [facility]; Protocol Stop: 03/30/20 20:59 Last Admin: 02/11/20 21:13 Dose: 50 mg Valproate Sodium (Depakene) 250 mg PO TID [facility]; Protocol Stop: 04/09/20 13:59 Last Admin: 02/11/20 21:12 Dose: 250 mg General: Alert, No acute distress HEENT: Atraumatic, PERRLA Neck: Supple Cardiovascular: Regular rate, Normal S1, Normal S2 Lungs: Clear to auscultation Abdomen: Bowel sounds, Soft Extremities: no Clubbing, no Cyanosis, no Edema Neurological: Normal gait Assessment/Plan - Assessment Assessment: psychosis htn improved hypothyroidism unsteady gait cognitive communication deficit dementia schizophrenia schizoaffective disorder - Plan Plan: will admit to [facility] for further evaluation and treatment continue current treatment add clonidine prn start norvasc 5mg po daily Nutritional Asmnt/Malnutr-PDOC - Dietary Evaluation Malnutrition Findings (Please click <Entered> for more info): Nutritional Asmnt/Malnutrition Start: 01/26/20 14: 36 Text: Status: Complete Freq: Protocol: Document 01/26/20 14:36 SHALOM (Rec: 01/26/20 14:51 SHALOM [id number]) Nutritional Asmnt/Malnutrition Patient General Information Nutritional Screening Low Risk Diagnosis Psychosis Pertinent Medical Hx/Surgical Hx Hypothyroidism, lack of coordination, hypertension, unsteady on feet. Subjective Information Pt is a 74-year-old female admitted on d/t agitation, irritability, and aggressive behavior. Pt is eating an estimated 77% of meals Per Meal/Nutrition Activity Record. Dietary is currently providing an estimated 2300 kcals and 106 gm Pro, per Pt PO intake this is providing an estimated 1770 kcals and 82 gm Pro to meet 100+% kcal and 100+% Pro needs . Per Meal/Nutrition Activity report, pt. refused breakfast and lunch 01/24 but ate 100% of dinner. Per nurse Negin note (01/24), pt. also refused medication and was noted with non-directable behavior, hyperverbal and confused Pt s refusal of meals morning of 01/24 possibly related to notes paranoid behavior. Pt was asleep in room at time of visit. Christy seen pt roaming the halls in passing, very active and talkative. Anthropometrics HT: 54 WT: 136 LB (61.81 kg) BMI: 23.49 (Normal) GI/ Skin Integrity GI: WNL, Soft, Flat, Non- tender BM: 01/24 x4 I/O: 1520/Not Noted Skin: WNL, Intact Timoteo: 17 Diet Order: Chopped, LOI Estimated Energy Needs: ( Geriatric, CBW) 2927-9849 kcals (25-30 kcals/ kg) 60-75g Pro (1.0-1.2 g/kg) 7493-6591 ml (25-30 ml/kg) Current Diet Order/ Nutrition Support Chopped, LOI Pertinent Medications Maalox (PRN), Synthroid, MOM ( PRN), Lopressor Pertinent Labs 01/20: A1C 6.1%, Glucose 119, K 3.2, T Pro 6.0 Nutritional Hx/Data Height 1.63 m Height (Calculated Centimeters) 162.6 Current Weight (lbs) 62.142 kg Weight (Calculated Kilograms) 62.1 Weight (Calculated Grams) 81259.2 [place] Body Weight 120 LB % [place] Body Weight 113 Body Mass Index (BMI) 23.5 Weight Status Approriate GI Symptoms GI Symptoms None Last BM 01/24 x4 Skin Integrity/Comment: Skin: WNL, Intact Timoteo: 17 Current %PO Good (75-100%) Estimated Nutritional Goals BEE in Kcals: Using Current wt Calories/Kcals/Kg 25-30 Kcals Calculated 6461-3906 Protein: Using Current wt Protein g/k.0-1.2 Protein Calculated 60-75 Fluid: ml 4081-7727 ml (25-30 ml/kg) Nutritional Problem 1. Problem Problem Altered nutrition-related lab values Etiology related to endocrinopathy Signs/Symptoms: as evidenced by labs (01/20 A1C 6.1%). Malnutrition Related to Morbid Obesity Malnutrition related to morbid obesity No Intervention/Recommendation Comments Continue Chopped, LOI diet as tolerated. Expected Outcomes/Goals Expected Outcomes/Goals 1.PO intake to continue to meet 75% of estimated nutritional needs. 2.Monitor PO intake, wt, nutrition related labs, and skin integrity. 3.F/U as low risk in 7-10 days , 02/01-02/04.
--- NOTE | 2020-02-12 18:43 | Progress Notes ---
DATE: 02/12/2020 Case was discussed with staff of the patient, reviewed records. The patient continues to be agitated, isolating herself, does not mix with other patients, gets agitated when asked questions, internally preoccupied. No side effects to the medications. She is now compliant with the medication. No sedation, no nausea, no extrapyramidal symptoms. Tolerating increase in Zyprexa 20 mg at bedtime with no side effects. We will continue outpatient group therapy, milieu therapy, and adjust medications as needed. JOB# [id number]
[2020-02-13] MEDS: Levothyroxine 0.1 Mg Tab PO SCH (07:01)
--- NOTE | 2020-02-13 19:29 | General Progress Note ---
Subjective - Review of Systems Service Date: 02/13/20 Subjective: Awake, Alert, no acute distress. Vitals stable T 98.1 P 61 R 18 BP 132/80 Objective - Physical Exam Vitals and I&O: Vital Signs Temp 98.1 F 02/11/20 20:14 Pulse 61 02/13/20 16:17 Resp 20 02/13/20 08:00 BP 132/60 02/13/20 16:17 Pulse Ox 98 02/11/20 14:00 Intake & Output 02/13/20 02/13/20 02/14/20 06:59 18:59 06:59 Intake Total 480 950 Balance 480 950 Intake: Oral 480 950 Other: # Voids 1 4 # Bowel Movements 1 Active Medications: Current Medications Acetaminophen (Tylenol) 650 mg PO Q4H PRN PRN Reason: Pain (Mild 1-3) Stop: 03/22/20 00:51 Al Hydrox/Mg Hydrox/Simethicone (Maalox) 30 ml PO Q4HR PRN PRN Reason: GI DISTRESS Stop: 03/22/20 00:51 Amlodipine Besylate (Norvasc) 5 mg PO DAILY [facility] Stop: 03/29/20 08:59 Last Admin: 02/13/20 08:17 Dose: 5 mg Levothyroxine Sodium (Synthroid) 0.1 mg PO QDAC [facility] Stop: 03/23/20 07:29 Last Admin: 02/13/20 07:01 Dose: 0.1 mg Lorazepam (Ativan) 0.5 mg PO Q4HR PRN; Protocol PRN Reason: Agitation Stop: 04/13/20 14:16 Magnesium Hydroxide (Milk Of Magnesia) 30 ml PO HS PRN PRN Reason: Constipation Metoprolol Tartrate (Lopressor) 25 mg PO BID [facility] Stop: 03/22/20 08:59 Last Admin: 02/13/20 16:17 Dose: 25 mg Olanzapine (Zyprexa) 10 mg PO DAILY [facility]; Protocol Stop: 03/22/20 12:44 Last Admin: 02/13/20 08:17 Dose: 10 mg Olanzapine (Zyprexa) 20 mg PO HS [facility] Stop: 04/08/20 20:59 Last Admin: 02/12/20 21:13 Dose: 20 mg Trazodone HCl (Desyrel) 50 mg PO HS [facility]; Protocol Stop: 03/30/20 20:59 Last Admin: 02/12/20 21:13 Dose: 50 mg Valproate Sodium (Depakene) 250 mg PO TID [facility]; Protocol Stop: 04/09/20 13:59 Last Admin: 02/13/20 13:10 Dose: 250 mg General: Alert, No acute distress HEENT: Atraumatic, PERRLA Neck: Supple Cardiovascular: Regular rate, Normal S1, Normal S2 Lungs: Clear to auscultation Abdomen: Bowel sounds, Soft Extremities: no Clubbing, no Cyanosis, no Edema Neurological: Normal gait Assessment/Plan - Assessment Assessment: psychosis htn improved hypothyroidism unsteady gait cognitive communication deficit dementia schizophrenia schizoaffective disorder - Plan Plan: will admit to [facility] for further evaluation and treatment continue current treatment add clonidine prn start norvasc 5mg po daily Nutritional Asmnt/Malnutr-PDOC - Dietary Evaluation Malnutrition Findings (Please click <Entered> for more info): Nutritional Asmnt/Malnutrition Start: 01/26/20 14: 36 Text: Status: Complete Freq: Protocol: Document 01/26/20 14:36 SHALOM (Rec: 01/26/20 14:51 SHALOM [id number]) Nutritional Asmnt/Malnutrition Patient General Information Nutritional Screening Low Risk Diagnosis Psychosis Pertinent Medical Hx/Surgical Hx Hypothyroidism, lack of coordination, hypertension, unsteady on feet. Subjective Information Pt is a 74-year-old female admitted on d/t agitation, irritability, and aggressive behavior. Pt is eating an estimated 77% of meals Per Meal/Nutrition Activity Record. Dietary is currently providing an estimated 2300 kcals and 106 gm Pro, per Pt PO intake this is providing an estimated 1770 kcals and 82 gm Pro to meet 100+% kcal and 100+% Pro needs . Per Meal/Nutrition Activity report, pt. refused breakfast and lunch 01/24 but ate 100% of dinner. Per nurse Negin note (01/24), pt. also refused medication and was noted with non-directable behavior, hyperverbal and confused Pt s refusal of meals morning of 01/24 possibly related to notes paranoid behavior. Pt was asleep in room at time of visit. Christy seen pt roaming the halls in passing, very active and talkative. Anthropometrics HT: 54 WT: 136 LB (61.81 kg) BMI: 23.49 (Normal) GI/ Skin Integrity GI: WNL, Soft, Flat, Non- tender BM: 01/24 x4 I/O: 1520/Not Noted Skin: WNL, Intact Timoteo: 17 Diet Order: Chopped, LOI Estimated Energy Needs: ( Geriatric, CBW) 0560-6511 kcals (25-30 kcals/ kg) 60-75g Pro (1.0-1.2 g/kg) 2177-4859 ml (25-30 ml/kg) Current Diet Order/ Nutrition Support Chopped, LOI Pertinent Medications Maalox (PRN), Synthroid, MOM ( PRN), Lopressor Pertinent Labs 01/20: A1C 6.1%, Glucose 119, K 3.2, T Pro 6.0 Nutritional Hx/Data Height 1.63 m Height (Calculated Centimeters) 162.6 Current Weight (lbs) 62.142 kg Weight (Calculated Kilograms) 62.1 Weight (Calculated Grams) 84567.2 [place] Body Weight 120 LB % [place] Body Weight 113 Body Mass Index (BMI) 23.5 Weight Status Approriate GI Symptoms GI Symptoms None Last BM 01/24 x4 Skin Integrity/Comment: Skin: WNL, Intact Timoteo: 17 Current %PO Good (75-100%) Estimated Nutritional Goals BEE in Kcals: Using Current wt Calories/Kcals/Kg 25-30 Kcals Calculated 6917-3427 Protein: Using Current wt Protein g/k.0-1.2 Protein Calculated 60-75 Fluid: ml 5063-2524 ml (25-30 ml/kg) Nutritional Problem 1. Problem Problem Altered nutrition-related lab values Etiology related to endocrinopathy Signs/Symptoms: as evidenced by labs (01/20 A1C 6.1%). Malnutrition Related to Morbid Obesity Malnutrition related to morbid obesity No Intervention/Recommendation Comments Continue Chopped, LOI diet as tolerated. Expected Outcomes/Goals Expected Outcomes/Goals 1.PO intake to continue to meet 75% of estimated nutritional needs. 2.Monitor PO intake, wt, nutrition related labs, and skin integrity. 3.F/U as low risk in 7-10 days , 02/01-02/04.
--- NOTE | 2020-02-13 22:16 | Psych Progress Note ---
Psych Progress Note - Intro Date of Progress Note: 02/13/20 - Assessment Assessment: patient interviewed, case discussed with staff, chart and records were reviewed. Patient remains hyperverbal with inappropriate language towards staff and other patients. The patient is quite labile throughout the day. The patient also isolates and when prompted to come out of her room becomes easily agitated. The patient is internally preoccupied during the interview. No side effects noted to the medications - Vitals, I&O Vitals: Vital Signs - 24 hr 02/13/20 02/13/20 02/13/20 08:00 08:16 08:17 HR 88 88 RR 20 BP 149/62 149/62 02/13/20 16:17 HR 61 RR BP 132/60 - Objective Psych General Appearance: Report: Disheveled Psych Behavior: Report: Restless Psych Speech: Report: Mumbled Psych Mood: Report: Angry Psych Affect: Report: Labile Psych Thought Process: Report: Paranoid Psych Cognition: Report: Confused Psych Insight: Report: Impaired Psych Judgement: Report: Impaired - Plan Plan: .Continue meds. encouraged medication adherence and groups. - Review of Relevant Data Review of Relevant Data: I have reviewed the following items and time agnieszka (where applicable) has been applied. - Medications Current Medications: Current Medications Acetaminophen (Tylenol) 650 mg PO Q4H PRN PRN Reason: Pain (Mild 1-3) Stop: 03/22/20 00:51 Al Hydrox/Mg Hydrox/Simethicone (Maalox) 30 ml PO Q4HR PRN PRN Reason: GI DISTRESS Stop: 03/22/20 00:51 Amlodipine Besylate (Norvasc) 5 mg PO DAILY [facility] Stop: 03/29/20 08:59 Last Admin: 02/13/20 08:17 Dose: 5 mg Levothyroxine Sodium (Synthroid) 0.1 mg PO QDAC [facility] Stop: 03/23/20 07:29 Last Admin: 02/13/20 07:01 Dose: 0.1 mg Lorazepam (Ativan) 0.5 mg PO Q4HR PRN; Protocol PRN Reason: Agitation Stop: 04/13/20 14:16 Magnesium Hydroxide (Milk Of Magnesia) 30 ml PO HS PRN PRN Reason: Constipation Metoprolol Tartrate (Lopressor) 25 mg PO BID [facility] Stop: 03/22/20 08:59 Last Admin: 02/13/20 16:17 Dose: 25 mg Olanzapine (Zyprexa) 10 mg PO DAILY [facility]; Protocol Stop: 03/22/20 12:44 Last Admin: 02/13/20 08:17 Dose: 10 mg Olanzapine (Zyprexa) 20 mg PO HS [facility] Stop: 04/08/20 20:59 Last Admin: 02/13/20 21:51 Dose: Not Given Trazodone HCl (Desyrel) 50 mg PO HS [facility]; Protocol Stop: 03/30/20 20:59 Last Admin: 02/13/20 21:51 Dose: Not Given Valproate Sodium (Depakene) 250 mg PO TID [facility]; Protocol Stop: 04/09/20 13:59 Last Admin: 02/13/20 21:51 Dose: Not Given
[2020-02-14] MEDS: Levothyroxine 0.1 Mg Tab PO SCH (06:34)
--- NOTE | 2020-02-14 23:39 | Psych Progress Note ---
Psych Progress Note - Intro Date of Progress Note: 02/14/20 - Assessment Assessment: patient interviewed, case discussed with staff, chart and records were reviewed. Patient remains hyperverbal with inappropriate language towards staff and other patients. She is yelling and screaming while doing rounds. The patient is quite labile throughout the day. The patient also isolates and when prompted to come out of her room becomes easily agitated. The patient is internally preoccupied during the interview. No side effects noted to the medications - Vitals, I&O Vitals: Vital Signs - 24 hr 02/14/20 02/14/20 02/14/20 08:00 09:44 16:59 HR 71 63 RR 20 BP 132/56 112/61 - Objective Psych General Appearance: Report: Disheveled Psych Behavior: Report: Restless Psych Speech: Report: Mumbled Psych Mood: Report: Angry Psych Affect: Report: Labile Psych Thought Process: Report: Paranoid Psych Cognition: Report: Confused Psych Insight: Report: Impaired Psych Judgement: Report: Impaired - Plan Plan: .Continue meds. encouraged medication adherence and groups. - Review of Relevant Data Review of Relevant Data: I have reviewed the following items and time agnieszka (where applicable) has been applied. - Medications Current Medications: Current Medications Acetaminophen (Tylenol) 650 mg PO Q4H PRN PRN Reason: Pain (Mild 1-3) Stop: 03/22/20 00:51 Al Hydrox/Mg Hydrox/Simethicone (Maalox) 30 ml PO Q4HR PRN PRN Reason: GI DISTRESS Stop: 03/22/20 00:51 Amlodipine Besylate (Norvasc) 5 mg PO DAILY [facility] Stop: 03/29/20 08:59 Last Admin: 02/14/20 09:44 Dose: 5 mg Levothyroxine Sodium (Synthroid) 0.1 mg PO QDAC [facility] Stop: 03/23/20 07:29 Last Admin: 02/14/20 06:34 Dose: 0.1 mg Lorazepam (Ativan) 0.5 mg PO Q4HR PRN; Protocol PRN Reason: Agitation Stop: 04/13/20 14:16 Magnesium Hydroxide (Milk Of Magnesia) 30 ml PO HS PRN PRN Reason: Constipation Metoprolol Tartrate (Lopressor) 25 mg PO BID [facility] Stop: 03/22/20 08:59 Last Admin: 02/14/20 16:59 Dose: Not Given Olanzapine (Zyprexa) 10 mg PO DAILY [facility]; Protocol Stop: 03/22/20 12:44 Last Admin: 02/14/20 09:37 Dose: 10 mg Olanzapine (Zyprexa) 20 mg PO HS [facility] Stop: 04/08/20 20:59 Last Admin: 02/14/20 20:51 Dose: 20 mg Trazodone HCl (Desyrel) 50 mg PO HS [facility]; Protocol Stop: 03/30/20 20:59 Last Admin: 02/14/20 20:51 Dose: 50 mg Valproate Sodium (Depakene) 250 mg PO TID [facility]; Protocol Stop: 04/09/20 13:59 Last Admin: 02/14/20 20:51 Dose: 250 mg
[2020-02-15] MEDS: Levothyroxine 0.1 Mg Tab PO SCH (06:38)
--- NOTE | 2020-02-15 07:58 | General Progress Note ---
Subjective - Review of Systems Service Date: 02/15/20 Subjective: Awake, Alert, no acute distress. Vitals stable T 98.1 P 63 R 18 BP 112/61 Objective - Physical Exam Vitals and I&O: Vital Signs Temp 98.1 F 02/11/20 20:14 Pulse 63 02/14/20 16:59 Resp 20 02/14/20 08:00 BP 112/61 02/14/20 16:59 Pulse Ox 98 02/11/20 14:00 Intake & Output 02/14/20 02/15/20 02/15/20 18:59 06:59 18:59 Intake Total 950 360 Balance 950 360 Intake: Oral 950 360 Other: # Voids 4 2 # Bowel Movements 1 0 Active Medications: Current Medications Acetaminophen (Tylenol) 650 mg PO Q4H PRN PRN Reason: Pain (Mild 1-3) Stop: 03/22/20 00:51 Al Hydrox/Mg Hydrox/Simethicone (Maalox) 30 ml PO Q4HR PRN PRN Reason: GI DISTRESS Stop: 03/22/20 00:51 Amlodipine Besylate (Norvasc) 5 mg PO DAILY [facility] Stop: 03/29/20 08:59 Last Admin: 02/14/20 09:44 Dose: 5 mg Levothyroxine Sodium (Synthroid) 0.1 mg PO QDAC [facility] Stop: 03/23/20 07:29 Last Admin: 02/15/20 06:38 Dose: 0.1 mg Lorazepam (Ativan) 0.5 mg PO Q4HR PRN; Protocol PRN Reason: Agitation Stop: 04/13/20 14:16 Magnesium Hydroxide (Milk Of Magnesia) 30 ml PO HS PRN PRN Reason: Constipation Metoprolol Tartrate (Lopressor) 25 mg PO BID [facility] Stop: 03/22/20 08:59 Last Admin: 02/14/20 16:59 Dose: Not Given Olanzapine (Zyprexa) 10 mg PO DAILY [facility]; Protocol Stop: 03/22/20 12:44 Last Admin: 02/14/20 09:37 Dose: 10 mg Olanzapine (Zyprexa) 20 mg PO HS [facility] Stop: 04/08/20 20:59 Last Admin: 02/14/20 20:51 Dose: 20 mg Trazodone HCl (Desyrel) 50 mg PO HS [facility]; Protocol Stop: 03/30/20 20:59 Last Admin: 02/14/20 20:51 Dose: 50 mg Valproate Sodium (Depakene) 250 mg PO TID [facility]; Protocol Stop: 04/09/20 13:59 Last Admin: 02/14/20 20:51 Dose: 250 mg General: Alert, No acute distress HEENT: Atraumatic, PERRLA Neck: Supple Cardiovascular: Regular rate, Normal S1, Normal S2 Lungs: Clear to auscultation Abdomen: Bowel sounds, Soft Extremities: no Clubbing, no Cyanosis, no Edema Neurological: Normal gait Assessment/Plan - Assessment Assessment: psychosis htn improved hypothyroidism unsteady gait cognitive communication deficit dementia schizophrenia schizoaffective disorder - Plan Plan: will admit to [facility] for further evaluation and treatment continue current treatment add clonidine prn start norvasc 5mg po daily Nutritional Asmnt/Malnutr-PDOC - Dietary Evaluation Malnutrition Findings (Please click <Entered> for more info): Nutritional Asmnt/Malnutrition Start: 01/26/20 14: 36 Text: Status: Complete Freq: Protocol: Document 01/26/20 14:36 SHALOM (Rec: 01/26/20 14:51 SHALOM [id number]) Nutritional Asmnt/Malnutrition Patient General Information Nutritional Screening Low Risk Diagnosis Psychosis Pertinent Medical Hx/Surgical Hx Hypothyroidism, lack of coordination, hypertension, unsteady on feet. Subjective Information Pt is a 74-year-old female admitted on d/t agitation, irritability, and aggressive behavior. Pt is eating an estimated 77% of meals Per Meal/Nutrition Activity Record. Dietary is currently providing an estimated 2300 kcals and 106 gm Pro, per Pt PO intake this is providing an estimated 1770 kcals and 82 gm Pro to meet 100+% kcal and 100+% Pro needs . Per Meal/Nutrition Activity report, pt. refused breakfast and lunch 01/24 but ate 100% of dinner. Per nurse Negin note (01/24), pt. also refused medication and was noted with non-directable behavior, hyperverbal and confused Pt s refusal of meals morning of 01/24 possibly related to notes paranoid behavior. Pt was asleep in room at time of visit. Christy seen pt roaming the halls in passing, very active and talkative. Anthropometrics HT: 54 WT: 136 LB (61.81 kg) BMI: 23.49 (Normal) GI/ Skin Integrity GI: WNL, Soft, Flat, Non- tender BM: 01/24 x4 I/O: 1520/Not Noted Skin: WNL, Intact Timoteo: 17 Diet Order: Chopped, LOI Estimated Energy Needs: ( Geriatric, CBW) 4493-5039 kcals (25-30 kcals/ kg) 60-75g Pro (1.0-1.2 g/kg) 3744-0660 ml (25-30 ml/kg) Current Diet Order/ Nutrition Support Chopped, LOI Pertinent Medications Maalox (PRN), Synthroid, MOM ( PRN), Lopressor Pertinent Labs 01/20: A1C 6.1%, Glucose 119, K 3.2, T Pro 6.0 Nutritional Hx/Data Height 1.63 m Height (Calculated Centimeters) 162.6 Current Weight (lbs) 62.142 kg Weight (Calculated Kilograms) 62.1 Weight (Calculated Grams) 15738.2 [place] Body Weight 120 LB % [place] Body Weight 113 Body Mass Index (BMI) 23.5 Weight Status Approriate GI Symptoms GI Symptoms None Last BM 01/24 x4 Skin Integrity/Comment: Skin: WNL, Intact Timoteo: 17 Current %PO Good (75-100%) Estimated Nutritional Goals BEE in Kcals: Using Current wt Calories/Kcals/Kg 25-30 Kcals Calculated 7039-5311 Protein: Using Current wt Protein g/k.0-1.2 Protein Calculated 60-75 Fluid: ml 0684-5972 ml (25-30 ml/kg) Nutritional Problem 1. Problem Problem Altered nutrition-related lab values Etiology related to endocrinopathy Signs/Symptoms: as evidenced by labs (01/20 A1C 6.1%). Malnutrition Related to Morbid Obesity Malnutrition related to morbid obesity No Intervention/Recommendation Comments Continue Chopped, LOI diet as tolerated. Expected Outcomes/Goals Expected Outcomes/Goals 1.PO intake to continue to meet 75% of estimated nutritional needs. 2.Monitor PO intake, wt, nutrition related labs, and skin integrity. 3.F/U as low risk in 7-10 days , 02/01-02/04.
--- NOTE | 2020-02-15 18:55 | Progress Notes ---
DATE: 02/15/2020 Case was discussed with the staff and reviewed records. The patient is starting to show progress. She is more appropriate. She does take her medications and needs a lot of prompting. Continues to be at times hyperverbal with episodes of yelling and screaming. Continues to be labile. Even started taking her blood pressure medications, which she was refusing, but she shown some progress, except she is not completely stable yet. No side effects with the medication, no sedation, no nausea, no extrapyramidal symptoms. We will continue to work with the patient in group therapy, milieu therapy, and adjust the medications as needed. JOB# [id number]
[2020-02-16] MEDS: Levothyroxine 0.1 Mg Tab PO SCH (06:46)
--- NOTE | 2020-02-16 08:12 | General Progress Note ---
Subjective - Review of Systems Service Date: 02/16/20 Subjective: Awake, Alert, no acute distress. Vitals stable T 97.3 P 56 R 18 BP 129/57 Objective - Physical Exam Vitals and I&O: Vital Signs Temp 97.3 F 02/16/20 06:15 Pulse 56 02/16/20 06:15 Resp 18 02/16/20 06:15 BP 129/57 02/16/20 06:15 Pulse Ox 99 02/16/20 06:15 Intake & Output 02/15/20 02/16/20 02/16/20 18:59 06:59 18:59 Intake Total 900 120 Output Total 0 Balance 900 120 Intake: Oral 900 120 Output: Urine 0 Stool 0 Other: # Voids 3 3 # Bowel Movements 1 0 Active Medications: Current Medications Acetaminophen (Tylenol) 650 mg PO Q4H PRN PRN Reason: Pain (Mild 1-3) Stop: 03/22/20 00:51 Al Hydrox/Mg Hydrox/Simethicone (Maalox) 30 ml PO Q4HR PRN PRN Reason: GI DISTRESS Stop: 03/22/20 00:51 Amlodipine Besylate (Norvasc) 5 mg PO DAILY [facility] Stop: 03/29/20 08:59 Last Admin: 02/15/20 08:50 Dose: 5 mg Levothyroxine Sodium (Synthroid) 0.1 mg PO QDAC [facility] Stop: 03/23/20 07:29 Last Admin: 02/16/20 06:46 Dose: Not Given Lorazepam (Ativan) 0.5 mg PO Q4HR PRN; Protocol PRN Reason: Agitation Stop: 04/13/20 14:16 Magnesium Hydroxide (Milk Of Magnesia) 30 ml PO HS PRN PRN Reason: Constipation Metoprolol Tartrate (Lopressor) 25 mg PO BID [facility] Stop: 03/22/20 08:59 Last Admin: 02/15/20 16:47 Dose: 25 mg Olanzapine (Zyprexa) 10 mg PO DAILY [facility]; Protocol Stop: 03/22/20 12:44 Last Admin: 02/15/20 08:50 Dose: 10 mg Olanzapine (Zyprexa) 20 mg PO HS [facility] Stop: 04/08/20 20:59 Last Admin: 02/15/20 21:04 Dose: Not Given Trazodone HCl (Desyrel) 50 mg PO HS [facility]; Protocol Stop: 03/30/20 20:59 Last Admin: 02/15/20 21:04 Dose: Not Given Valproate Sodium (Depakene) 250 mg PO TID [facility]; Protocol Stop: 04/09/20 13:59 Last Admin: 02/15/20 21:04 Dose: Not Given General: Alert, No acute distress HEENT: Atraumatic, PERRLA Neck: Supple Cardiovascular: Regular rate, Normal S1, Normal S2 Lungs: Clear to auscultation Abdomen: Bowel sounds, Soft Extremities: no Clubbing, no Cyanosis, no Edema Neurological: Normal gait Assessment/Plan - Assessment Assessment: psychosis htn improved hypothyroidism unsteady gait cognitive communication deficit dementia schizophrenia schizoaffective disorder - Plan Plan: will admit to [facility] for further evaluation and treatment continue current treatment add clonidine prn start norvasc 5mg po daily Nutritional Asmnt/Malnutr-PDOC - Dietary Evaluation Malnutrition Findings (Please click <Entered> for more info): Nutritional Asmnt/Malnutrition Start: 01/26/20 14: 36 Text: Status: Complete Freq: Protocol: Document 01/26/20 14:36 SHALOM (Rec: 01/26/20 14:51 SHALOM [id number]) Nutritional Asmnt/Malnutrition Patient General Information Nutritional Screening Low Risk Diagnosis Psychosis Pertinent Medical Hx/Surgical Hx Hypothyroidism, lack of coordination, hypertension, unsteady on feet. Subjective Information Pt is a 74-year-old female admitted on d/t agitation, irritability, and aggressive behavior. Pt is eating an estimated 77% of meals Per Meal/Nutrition Activity Record. Dietary is currently providing an estimated 2300 kcals and 106 gm Pro, per Pt PO intake this is providing an estimated 1770 kcals and 82 gm Pro to meet 100+% kcal and 100+% Pro needs . Per Meal/Nutrition Activity report, pt. refused breakfast and lunch 01/24 but ate 100% of dinner. Per nurse Negin note (01/24), pt. also refused medication and was noted with non-directable behavior, hyperverbal and confused Pt s refusal of meals morning of 01/24 possibly related to notes paranoid behavior. Pt was asleep in room at time of visit. Christy seen pt roaming the halls in passing, very active and talkative. Anthropometrics HT: 54 WT: 136 LB (61.81 kg) BMI: 23.49 (Normal) GI/ Skin Integrity GI: WNL, Soft, Flat, Non- tender BM: 01/24 x4 I/O: 1520/Not Noted Skin: WNL, Intact Timoteo: 17 Diet Order: Chopped, LOI Estimated Energy Needs: ( Geriatric, CBW) 6536-1666 kcals (25-30 kcals/ kg) 60-75g Pro (1.0-1.2 g/kg) 1069-1177 ml (25-30 ml/kg) Current Diet Order/ Nutrition Support Chopped, LOI Pertinent Medications Maalox (PRN), Synthroid, MOM ( PRN), Lopressor Pertinent Labs 01/20: A1C 6.1%, Glucose 119, K 3.2, T Pro 6.0 Nutritional Hx/Data Height 1.63 m Height (Calculated Centimeters) 162.6 Current Weight (lbs) 62.142 kg Weight (Calculated Kilograms) 62.1 Weight (Calculated Grams) 93138.2 [place] Body Weight 120 LB % [place] Body Weight 113 Body Mass Index (BMI) 23.5 Weight Status Approriate GI Symptoms GI Symptoms None Last BM 01/24 x4 Skin Integrity/Comment: Skin: WNL, Intact Timoteo: 17 Current %PO Good (75-100%) Estimated Nutritional Goals BEE in Kcals: Using Current wt Calories/Kcals/Kg 25-30 Kcals Calculated 7641-8289 Protein: Using Current wt Protein g/k.0-1.2 Protein Calculated 60-75 Fluid: ml 3508-5620 ml (25-30 ml/kg) Nutritional Problem 1. Problem Problem Altered nutrition-related lab values Etiology related to endocrinopathy Signs/Symptoms: as evidenced by labs (01/20 A1C 6.1%). Malnutrition Related to Morbid Obesity Malnutrition related to morbid obesity No Intervention/Recommendation Comments Continue Chopped, LOI diet as tolerated. Expected Outcomes/Goals Expected Outcomes/Goals 1.PO intake to continue to meet 75% of estimated nutritional needs. 2.Monitor PO intake, wt, nutrition related labs, and skin integrity. 3.F/U as low risk in 7-10 days , 02/01-02/04.
--- NOTE | 2020-02-16 20:43 | Progress Notes ---
DATE: 02/16/2020 Case was discussed with staff of the patient, reviewed records. The patient is starting to show progress, though she is not taking her medication consistently, but she is taking most of the time. She is sleeping better, eating better. She is less agitated and less irritable. No side effects with the medication, no sedation, no nausea and no extrapyramidal symptoms. So, she tolerated the increase in her olanzapine with no side effects, no sedation, no nausea, no extrapyramidal symptoms, but she was not taken it for a while. She even now she does not take it consistently. So, it is hard to adjust the dose. We will continue to work with the patient in group therapy, milieu therapy, and adjust the medications as needed. JOB# [id number]
[2020-02-17] MEDS: Levothyroxine 0.1 Mg Tab PO SCH (06:39)
--- NOTE | 2020-02-17 08:38 | General Progress Note ---
Subjective - Review of Systems Service Date: 02/17/20 Subjective: Awake, Alert, no acute distress. Vitals stable T 97.5 P 79 R 18 BP 128/62 Objective - Physical Exam Vitals and I&O: Vital Signs Temp 97.5 F 02/16/20 20:36 Pulse 79 02/16/20 20:36 Resp 18 02/16/20 20:36 BP 128/62 02/16/20 20:36 Pulse Ox 98 02/16/20 20:36 Intake & Output 02/16/20 02/17/20 02/17/20 18:59 06:59 18:59 Intake Total 800 360 Balance 800 360 Intake: Oral 800 360 Other: # Voids 3 # Bowel Movements 0 Active Medications: Current Medications Acetaminophen (Tylenol) 650 mg PO Q4H PRN PRN Reason: Pain (Mild 1-3) Stop: 03/22/20 00:51 Al Hydrox/Mg Hydrox/Simethicone (Maalox) 30 ml PO Q4HR PRN PRN Reason: GI DISTRESS Stop: 03/22/20 00:51 Amlodipine Besylate (Norvasc) 5 mg PO DAILY [facility] Stop: 03/29/20 08:59 Last Admin: 02/16/20 08:37 Dose: 5 mg Levothyroxine Sodium (Synthroid) 0.1 mg PO QDAC [facility] Stop: 03/23/20 07:29 Last Admin: 02/17/20 06:39 Dose: 0.1 mg Lorazepam (Ativan) 0.5 mg PO Q4HR PRN; Protocol PRN Reason: Agitation Stop: 04/13/20 14:16 Magnesium Hydroxide (Milk Of Magnesia) 30 ml PO HS PRN PRN Reason: Constipation Metoprolol Tartrate (Lopressor) 25 mg PO BID [facility] Stop: 03/22/20 08:59 Last Admin: 02/16/20 16:19 Dose: 25 mg Olanzapine (Zyprexa) 10 mg PO DAILY [facility]; Protocol Stop: 03/22/20 12:44 Last Admin: 02/17/20 08:30 Dose: 10 mg Olanzapine (Zyprexa) 20 mg PO HS [facility] Stop: 04/08/20 20:59 Last Admin: 02/16/20 21:10 Dose: 20 mg Trazodone HCl (Desyrel) 50 mg PO HS [facility]ARLINE; Protocol Stop: 03/30/20 20:59 Last Admin: 02/16/20 21:10 Dose: 50 mg Valproate Sodium (Depakene) 250 mg PO TID [facility]; Protocol Stop: 04/09/20 13:59 Last Admin: 02/17/20 08:30 Dose: 250 mg General: Alert, No acute distress HEENT: Atraumatic, PERRLA Neck: Supple Cardiovascular: Regular rate, Normal S1, Normal S2 Lungs: Clear to auscultation Abdomen: Bowel sounds, Soft Extremities: no Clubbing, no Cyanosis, no Edema Neurological: Normal gait Assessment/Plan - Assessment Assessment: psychosis htn improved hypothyroidism unsteady gait cognitive communication deficit dementia schizophrenia schizoaffective disorder - Plan Plan: will admit to [facility] for further evaluation and treatment continue current treatment add clonidine prn start norvasc 5mg po daily Nutritional Asmnt/Malnutr-PDOC - Dietary Evaluation Malnutrition Findings (Please click <Entered> for more info): Nutritional Asmnt/Malnutrition Start: 01/26/20 14: 36 Text: Status: Complete Freq: Protocol: Document 01/26/20 14:36 SHALOM (Rec: 01/26/20 14:51 SHALOM [id number]) Nutritional Asmnt/Malnutrition Patient General Information Nutritional Screening Low Risk Diagnosis Psychosis Pertinent Medical Hx/Surgical Hx Hypothyroidism, lack of coordination, hypertension, unsteady on feet. Subjective Information Pt is a 74-year-old female admitted on d/t agitation, irritability, and aggressive behavior. Pt is eating an estimated 77% of meals Per Meal/Nutrition Activity Record. Dietary is currently providing an estimated 2300 kcals and 106 gm Pro, per Pt PO intake this is providing an estimated 1770 kcals and 82 gm Pro to meet 100+% kcal and 100+% Pro needs . Per Meal/Nutrition Activity report, pt. refused breakfast and lunch 01/24 but ate 100% of dinner. Per nurse Negin note (01/24), pt. also refused medication and was noted with non-directable behavior, hyperverbal and confused Pt s refusal of meals morning of 01/24 possibly related to notes paranoid behavior. Pt was asleep in room at time of visit. Christy seen pt roaming the halls in passing, very active and talkative. Anthropometrics HT: 54 WT: 136 LB (61.81 kg) BMI: 23.49 (Normal) GI/ Skin Integrity GI: WNL, Soft, Flat, Non- tender BM: 01/24 x4 I/O: 1520/Not Noted Skin: WNL, Intact Timoteo: 17 Diet Order: Chopped, LOI Estimated Energy Needs: ( Geriatric, CBW) 5853-0458 kcals (25-30 kcals/ kg) 60-75g Pro (1.0-1.2 g/kg) 1126-2062 ml (25-30 ml/kg) Current Diet Order/ Nutrition Support Chopped, LOI Pertinent Medications Maalox (PRN), Synthroid, MOM ( PRN), Lopressor Pertinent Labs 01/20: A1C 6.1%, Glucose 119, K 3.2, T Pro 6.0 Nutritional Hx/Data Height 1.63 m Height (Calculated Centimeters) 162.6 Current Weight (lbs) 62.142 kg Weight (Calculated Kilograms) 62.1 Weight (Calculated Grams) 23044.2 [place] Body Weight 120 LB % [place] Body Weight 113 Body Mass Index (BMI) 23.5 Weight Status Approriate GI Symptoms GI Symptoms None Last BM 01/24 x4 Skin Integrity/Comment: Skin: WNL, Intact Timoteo: 17 Current %PO Good (75-100%) Estimated Nutritional Goals BEE in Kcals: Using Current wt Calories/Kcals/Kg 25-30 Kcals Calculated 2237-2547 Protein: Using Current wt Protein g/k.0-1.2 Protein Calculated 60-75 Fluid: ml 1885-0708 ml (25-30 ml/kg) Nutritional Problem 1. Problem Problem Altered nutrition-related lab values Etiology related to endocrinopathy Signs/Symptoms: as evidenced by labs (01/20 A1C 6.1%). Malnutrition Related to Morbid Obesity Malnutrition related to morbid obesity No Intervention/Recommendation Comments Continue Chopped, LOI diet as tolerated. Expected Outcomes/Goals Expected Outcomes/Goals 1.PO intake to continue to meet 75% of estimated nutritional needs. 2.Monitor PO intake, wt, nutrition related labs, and skin integrity. 3.F/U as low risk in 7-10 days , 02/01-02/04.
--- NOTE | 2020-02-17 16:37 | Progress Notes ---
DATE: 02/17/2020 Case was discussed with staff of the patient, reviewed records. The patient in general is showing some progress and that she is more friendly when she talks; however, she is still delusional, paranoid. When I told her I am not her psychiatrist, she states her own psychiatrist comes in [place] and she wanted to get a record tabulating clerk to get her out of the hospital. She said you could be my friend, but not my psychiatrist. I do not need a psychiatrist. I do not have any mental illness, but in general, she has been more compliant with the medication with no side effects, no sedation, no nausea, no extrapyramidal symptoms and she is not eating, taking her medication for blood pressure. will continue outpatient group therapy, milieu therapy, and adjust medications as needed. JOB# [id number] [email or web address]
[2020-02-18] MEDS: Levothyroxine 0.1 Mg Tab PO SCH (06:38)
--- NOTE | 2020-02-18 07:42 | General Progress Note ---
Subjective - Review of Systems Service Date: 02/18/20 Subjective: Awake, Alert, no acute distress. Vitals stable T 98.3 P 74 R 20 BP 123/47 Objective - Physical Exam Vitals and I&O: Vital Signs Temp 98.3 F 02/17/20 15:11 Pulse 60 02/17/20 17:29 Resp 20 02/17/20 15:11 BP 123/60 02/17/20 17:29 Pulse Ox 97 02/17/20 15:11 Intake & Output 02/17/20 02/18/20 02/18/20 18:59 06:59 18:59 Intake Total 120 Balance 120 Intake: Oral 120 Other: # Voids 2 # Bowel Movements 0 Active Medications: Current Medications Acetaminophen (Tylenol) 650 mg PO Q4H PRN PRN Reason: Pain (Mild 1-3) Stop: 03/22/20 00:51 Al Hydrox/Mg Hydrox/Simethicone (Maalox) 30 ml PO Q4HR PRN PRN Reason: GI DISTRESS Stop: 03/22/20 00:51 Amlodipine Besylate (Norvasc) 5 mg PO DAILY [facility] Stop: 03/29/20 08:59 Last Admin: 02/17/20 09:05 Dose: 5 mg Levothyroxine Sodium (Synthroid) 0.1 mg PO QDAC [facility] Stop: 03/23/20 07:29 Last Admin: 02/18/20 06:38 Dose: 0.1 mg Lorazepam (Ativan) 0.5 mg PO Q4HR PRN; Protocol PRN Reason: Agitation Stop: 04/13/20 14:16 Last Admin: 02/17/20 16:32 Dose: 0.5 mg Magnesium Hydroxide (Milk Of Magnesia) 30 ml PO HS PRN PRN Reason: Constipation Metoprolol Tartrate (Lopressor) 25 mg PO BID [facility] Stop: 03/22/20 08:59 Last Admin: 02/17/20 17:29 Dose: Not Given Olanzapine (Zyprexa) 10 mg PO DAILY [facility]; Protocol Stop: 03/22/20 12:44 Last Admin: 02/17/20 08:30 Dose: 10 mg Olanzapine (Zyprexa) 20 mg PO HS [facility] Stop: 04/08/20 20:59 Last Admin: 02/17/20 20:40 Dose: 20 mg Trazodone HCl (Desyrel) 50 mg PO HS [facility]; Protocol Stop: 03/30/20 20:59 Last Admin: 02/17/20 20:40 Dose: 50 mg Valproate Sodium (Depakene) 250 mg PO TID [facility]; Protocol Stop: 04/09/20 13:59 Last Admin: 02/17/20 20:40 Dose: 250 mg General: Alert, No acute distress HEENT: Atraumatic, PERRLA Neck: Supple Cardiovascular: Regular rate, Normal S1, Normal S2 Lungs: Clear to auscultation Abdomen: Bowel sounds, Soft Extremities: no Clubbing, no Cyanosis, no Edema Neurological: Normal gait Assessment/Plan - Assessment Assessment: psychosis htn stable hypothyroidism unsteady gait cognitive communication deficit dementia schizophrenia schizoaffective disorder - Plan Plan: will admit to [facility] for further evaluation and treatment continue current treatment add clonidine prn start norvasc 5mg po daily Nutritional Asmnt/Malnutr-PDOC - Dietary Evaluation Malnutrition Findings (Please click <Entered> for more info): Nutritional Asmnt/Malnutrition Start: 01/26/20 14: 36 Text: Status: Complete Freq: Protocol: Document 01/26/20 14:36 SHALOM (Rec: 01/26/20 14:51 SHALOM [id number]) Nutritional Asmnt/Malnutrition Patient General Information Nutritional Screening Low Risk Diagnosis Psychosis Pertinent Medical Hx/Surgical Hx Hypothyroidism, lack of coordination, hypertension, unsteady on feet. Subjective Information Pt is a 74-year-old female admitted on d/t agitation, irritability, and aggressive behavior. Pt is eating an estimated 77% of meals Per Meal/Nutrition Activity Record. Dietary is currently providing an estimated 2300 kcals and 106 gm Pro, per Pt PO intake this is providing an estimated 1770 kcals and 82 gm Pro to meet 100+% kcal and 100+% Pro needs . Per Meal/Nutrition Activity report, pt. refused breakfast and lunch 01/24 but ate 100% of dinner. Per nurse Negin note (01/24), pt. also refused medication and was noted with non-directable behavior, hyperverbal and confused Pt s refusal of meals morning of 01/24 possibly related to notes paranoid behavior. Pt was asleep in room at time of visit. Christy seen pt roaming the halls in passing, very active and talkative. Anthropometrics HT: 54 WT: 136 LB (61.81 kg) BMI: 23.49 (Normal) GI/ Skin Integrity GI: WNL, Soft, Flat, Non- tender BM: 01/24 x4 I/O: 1520/Not Noted Skin: WNL, Intact Timoteo: 17 Diet Order: Chopped, LOI Estimated Energy Needs: ( Geriatric, CBW) 9823-6462 kcals (25-30 kcals/ kg) 60-75g Pro (1.0-1.2 g/kg) 2042-4127 ml (25-30 ml/kg) Current Diet Order/ Nutrition Support Chopped, LOI Pertinent Medications Maalox (PRN), Synthroid, MOM ( PRN), Lopressor Pertinent Labs 01/20: A1C 6.1%, Glucose 119, K 3.2, T Pro 6.0 Nutritional Hx/Data Height 1.63 m Height (Calculated Centimeters) 162.6 Current Weight (lbs) 62.142 kg Weight (Calculated Kilograms) 62.1 Weight (Calculated Grams) 12095.2 [place] Body Weight 120 LB % [place] Body Weight 113 Body Mass Index (BMI) 23.5 Weight Status Approriate GI Symptoms GI Symptoms None Last BM 01/24 x4 Skin Integrity/Comment: Skin: WNL, Intact Timoteo: 17 Current %PO Good (75-100%) Estimated Nutritional Goals BEE in Kcals: Using Current wt Calories/Kcals/Kg 25-30 Kcals Calculated 4095-0363 Protein: Using Current wt Protein g/k.0-1.2 Protein Calculated 60-75 Fluid: ml 4919-4344 ml (25-30 ml/kg) Nutritional Problem 1. Problem Problem Altered nutrition-related lab values Etiology related to endocrinopathy Signs/Symptoms: as evidenced by labs (01/20 A1C 6.1%). Malnutrition Related to Morbid Obesity Malnutrition related to morbid obesity No Intervention/Recommendation Comments Continue Chopped, LOI diet as tolerated. Expected Outcomes/Goals Expected Outcomes/Goals 1.PO intake to continue to meet 75% of estimated nutritional needs. 2.Monitor PO intake, wt, nutrition related labs, and skin integrity. 3.F/U as low risk in 7-10 days , 02/01-02/04.
[2020-02-18] MEDS ORDERED: OLANZAPINE PO SCH (21:00)
--- NOTE | 2020-02-18 22:14 | Progress Notes ---
DATE: 02/18/2020 FOLLOWUP PROGRESS NOTE Case was discussed with staff of the patient, reviewed records. The patient continues to be unpredictable, impulsive. Today, she was agitated, hyperverbal, seem like she is not taking medication on a regular basis. She is sleeping and eating well. Continues to have poor insight. I will be increasing her Zyprexa to 25 mg at bedtime because of her psychotic symptoms, paranoid and agitated behavior. We will continue to work with the patient in group therapy, milieu therapy and adjust the medications as needed. JOB# [id number]
--- NOTE | 2020-02-19 06:37 | General Progress Note ---
Subjective - Review of Systems Service Date: 02/19/20 Subjective: Awake, Alert, no acute distress. Vitals stable T 98.3 P 74 R 20 BP 123/47 Objective - Physical Exam Vitals and I&O: Vital Signs Temp 98.3 F 02/17/20 15:11 Pulse 60 02/17/20 17:29 Resp 16 02/18/20 20:00 BP 123/60 02/17/20 17:29 Pulse Ox 97 02/17/20 15:11 Intake & Output 02/18/20 02/18/20 02/19/20 06:59 18:59 06:59 Intake Total 120 480 Output Total 1 Balance 120 479 Intake: Oral 120 480 Output: Urine/Stool Mix 1 Other: # Voids 2 1 # Bowel Movements 0 Stool Characteristics Soft Formed Brown Active Medications: Current Medications Acetaminophen (Tylenol) 650 mg PO Q4H PRN PRN Reason: Pain (Mild 1-3) Stop: 03/22/20 00:51 Al Hydrox/Mg Hydrox/Simethicone (Maalox) 30 ml PO Q4HR PRN PRN Reason: GI DISTRESS Stop: 03/22/20 00:51 Amlodipine Besylate (Norvasc) 5 mg PO DAILY [facility] Stop: 03/29/20 08:59 Last Admin: 02/18/20 09:50 Dose: Not Given Levothyroxine Sodium (Synthroid) 0.1 mg PO QDAC [facility] Stop: 03/23/20 07:29 Last Admin: 02/18/20 06:38 Dose: 0.1 mg Lorazepam (Ativan) 0.5 mg PO Q4HR PRN; Protocol PRN Reason: Agitation Stop: 04/13/20 14:16 Last Admin: 02/17/20 16:32 Dose: 0.5 mg Magnesium Hydroxide (Milk Of Magnesia) 30 ml PO HS PRN PRN Reason: Constipation Metoprolol Tartrate (Lopressor) 25 mg PO BID [facility] Stop: 03/22/20 08:59 Last Admin: 02/18/20 16:13 Dose: Not Given Olanzapine (Zyprexa) 10 mg PO DAILY [facility]; Protocol Stop: 03/22/20 12:44 Last Admin: 02/18/20 09:50 Dose: 10 mg Olanzapine 10 mg/ Olanzapine (15 mg) 25 mg PO HS [facility] Stop: 04/18/20 20:59 Trazodone HCl (Desyrel) 50 mg PO HS [facility]; Protocol Stop: 03/30/20 20:59 Last Admin: 02/18/20 21:23 Dose: 50 mg Valproate Sodium (Depakene) 250 mg PO TID [facility]; Protocol Stop: 04/09/20 13:59 Last Admin: 02/18/20 21:23 Dose: 250 mg General: Alert, No acute distress HEENT: Atraumatic, PERRLA Neck: Supple Cardiovascular: Regular rate, Normal S1, Normal S2 Lungs: Clear to auscultation Abdomen: Bowel sounds, Soft Extremities: no Clubbing, no Cyanosis, no Edema Neurological: Normal gait Assessment/Plan - Assessment Assessment: psychosis htn stable hypothyroidism unsteady gait cognitive communication deficit dementia schizophrenia schizoaffective disorder - Plan Plan: will admit to [facility] for further evaluation and treatment continue current treatment add clonidine prn start norvasc 5mg po daily Nutritional Asmnt/Malnutr-PDOC - Dietary Evaluation Malnutrition Findings (Please click <Entered> for more info): Nutritional Asmnt/Malnutrition Start: 01/26/20 14: 36 Text: Status: Complete Freq: Protocol: Document 01/26/20 14:36 SHALOM (Rec: 01/26/20 14:51 SHALOM [id number]) Nutritional Asmnt/Malnutrition Patient General Information Nutritional Screening Low Risk Diagnosis Psychosis Pertinent Medical Hx/Surgical Hx Hypothyroidism, lack of coordination, hypertension, unsteady on feet. Subjective Information Pt is a 74-year-old female admitted on d/t agitation, irritability, and aggressive behavior. Pt is eating an estimated 77% of meals Per Meal/Nutrition Activity Record. Dietary is currently providing an estimated 2300 kcals and 106 gm Pro, per Pt PO intake this is providing an estimated 1770 kcals and 82 gm Pro to meet 100+% kcal and 100+% Pro needs . Per Meal/Nutrition Activity report, pt. refused breakfast and lunch 01/24 but ate 100% of dinner. Per nurse Negin note (01/24), pt. also refused medication and was noted with non-directable behavior, hyperverbal and confused Pt s refusal of meals morning of 01/24 possibly related to notes paranoid behavior. Pt was asleep in room at time of visit. Christy seen pt roaming the halls in passing, very active and talkative. Anthropometrics HT: 54 WT: 136 LB (61.81 kg) BMI: 23.49 (Normal) GI/ Skin Integrity GI: WNL, Soft, Flat, Non- tender BM: 01/24 x4 I/O: 1520/Not Noted Skin: WNL, Intact Timoteo: 17 Diet Order: Chopped, LOI Estimated Energy Needs: ( Geriatric, CBW) 2082-7566 kcals (25-30 kcals/ kg) 60-75g Pro (1.0-1.2 g/kg) 9494-3447 ml (25-30 ml/kg) Current Diet Order/ Nutrition Support Chopped, LOI Pertinent Medications Maalox (PRN), Synthroid, MOM ( PRN), Lopressor Pertinent Labs 01/20: A1C 6.1%, Glucose 119, K 3.2, T Pro 6.0 Nutritional Hx/Data Height 1.63 m Height (Calculated Centimeters) 162.6 Current Weight (lbs) 62.142 kg Weight (Calculated Kilograms) 62.1 Weight (Calculated Grams) 90214.2 [place] Body Weight 120 LB % [place] Body Weight 113 Body Mass Index (BMI) 23.5 Weight Status Approriate GI Symptoms GI Symptoms None Last BM 01/24 x4 Skin Integrity/Comment: Skin: WNL, Intact Timoteo: 17 Current %PO Good (75-100%) Estimated Nutritional Goals BEE in Kcals: Using Current wt Calories/Kcals/Kg 25-30 Kcals Calculated 2911-4363 Protein: Using Current wt Protein g/k.0-1.2 Protein Calculated 60-75 Fluid: ml 8907-7270 ml (25-30 ml/kg) Nutritional Problem 1. Problem Problem Altered nutrition-related lab values Etiology related to endocrinopathy Signs/Symptoms: as evidenced by labs (01/20 A1C 6.1%). Malnutrition Related to Morbid Obesity Malnutrition related to morbid obesity No Intervention/Recommendation Comments Continue Chopped, LOI diet as tolerated. Expected Outcomes/Goals Expected Outcomes/Goals 1.PO intake to continue to meet 75% of estimated nutritional needs. 2.Monitor PO intake, wt, nutrition related labs, and skin integrity. 3.F/U as low risk in 7-10 days , 02/01-02/04.
[2020-02-19] MEDS: Levothyroxine 0.1 Mg Tab PO SCH (07:00)
--- NOTE | 2020-02-19 16:42 | Progress Notes ---
DATE: 02/19/2020 Case was discussed with staff of the patient, reviewed records. The patient has been agitated. I tried talk to her and went into the room, yelling at me. The staff reports she takes her medication , She continues to have poor insight, unpredictable, impulsive, needing redirection. I did increase her olanzapine yesterday to 25 mg at bedtime because of agitation, acting out behavior. No side effects with the medication, no sedation, no nausea, no extrapyramidal symptoms. I will be adding Depakote to her medication, liquid Depakote 250 mg 3 times a day. Discussed side effects, we will continue outpatient group therapy, milieu therapy, and adjust medications as needed. JOB# [id number] MTDD
[2020-02-20] MEDS: Levothyroxine 0.1 Mg Tab PO SCH (06:52)
--- NOTE | 2020-02-20 07:21 | General Progress Note ---
Subjective - Review of Systems Service Date: 02/20/20 Subjective: Awake, Alert, no acute distress. Vitals stable T 98.3 P 82 R 20 BP 132/70 Objective - Physical Exam Vitals and I&O: Vital Signs Temp 98.3 F 02/17/20 15:11 Pulse 82 02/19/20 08:36 Resp 15 02/19/20 20:00 BP 132/70 02/19/20 08:36 Pulse Ox 97 02/17/20 15:11 Intake & Output 02/19/20 02/20/20 02/20/20 18:59 06:59 18:59 Intake Total 1200 Balance 1200 Intake: Oral 1200 Other: # Voids 3 # Bowel Movements 0 Stool Characteristics Soft Formed Brown Active Medications: Current Medications Acetaminophen (Tylenol) 650 mg PO Q4H PRN PRN Reason: Pain (Mild 1-3) Stop: 03/22/20 00:51 Al Hydrox/Mg Hydrox/Simethicone (Maalox) 30 ml PO Q4HR PRN PRN Reason: GI DISTRESS Stop: 03/22/20 00:51 Amlodipine Besylate (Norvasc) 5 mg PO DAILY [facility] Stop: 03/29/20 08:59 Last Admin: 02/19/20 08:36 Dose: 5 mg Levothyroxine Sodium (Synthroid) 0.1 mg PO QDAC [facility] Stop: 03/23/20 07:29 Last Admin: 02/20/20 06:52 Dose: 0.1 mg Lorazepam (Ativan) 0.5 mg PO Q4HR PRN; Protocol PRN Reason: Agitation Stop: 04/13/20 14:16 Last Admin: 02/17/20 16:32 Dose: 0.5 mg Magnesium Hydroxide (Milk Of Magnesia) 30 ml PO HS PRN PRN Reason: Constipation Metoprolol Tartrate (Lopressor) 25 mg PO BID [facility] Stop: 03/22/20 08:59 Last Admin: 02/19/20 16:37 Dose: Not Given Olanzapine (Zyprexa) 10 mg PO DAILY [facility]; Protocol Stop: 03/22/20 12:44 Last Admin: 02/19/20 08:36 Dose: 10 mg Olanzapine 10 mg/ Olanzapine (15 mg) 25 mg PO HS [facility] Stop: 04/18/20 20:59 Trazodone HCl (Desyrel) 50 mg PO HS [facility]; Protocol Stop: 03/30/20 20:59 Last Admin: 02/19/20 20:20 Dose: 50 mg Valproate Sodium (Depakene) 250 mg PO TID [facility]; Protocol Stop: 04/09/20 13:59 Last Admin: 02/19/20 20:57 Dose: 250 mg General: Alert, No acute distress HEENT: Atraumatic, PERRLA Neck: Supple Cardiovascular: Regular rate, Normal S1, Normal S2 Lungs: Clear to auscultation Abdomen: Bowel sounds, Soft Extremities: no Clubbing, no Cyanosis, no Edema Neurological: Normal gait Assessment/Plan - Assessment Assessment: psychosis htn stable hypothyroidism unsteady gait cognitive communication deficit dementia schizophrenia schizoaffective disorder - Plan Plan: will admit to [facility] for further evaluation and treatment continue current treatment add clonidine prn start norvasc 5mg po daily Nutritional Asmnt/Malnutr-PDOC - Dietary Evaluation Malnutrition Findings (Please click <Entered> for more info): Nutritional Asmnt/Malnutrition Start: 01/26/20 14: 36 Text: Status: Complete Freq: Protocol: Document 01/26/20 14:36 SHALOM (Rec: 01/26/20 14:51 SHALOM [id number]) Nutritional Asmnt/Malnutrition Patient General Information Nutritional Screening Low Risk Diagnosis Psychosis Pertinent Medical Hx/Surgical Hx Hypothyroidism, lack of coordination, hypertension, unsteady on feet. Subjective Information Pt is a 74-year-old female admitted on d/t agitation, irritability, and aggressive behavior. Pt is eating an estimated 77% of meals Per Meal/Nutrition Activity Record. Dietary is currently providing an estimated 2300 kcals and 106 gm Pro, per Pt PO intake this is providing an estimated 1770 kcals and 82 gm Pro to meet 100+% kcal and 100+% Pro needs . Per Meal/Nutrition Activity report, pt. refused breakfast and lunch 01/24 but ate 100% of dinner. Per nurse Negin note (01/24), pt. also refused medication and was noted with non-directable behavior, hyperverbal and confused Pt s refusal of meals morning of 01/24 possibly related to notes paranoid behavior. Pt was asleep in room at time of visit. Christy seen pt roaming the halls in passing, very active and talkative. Anthropometrics HT: 54 WT: 136 LB (61.81 kg) BMI: 23.49 (Normal) GI/ Skin Integrity GI: WNL, Soft, Flat, Non- tender BM: 01/24 x4 I/O: 1520/Not Noted Skin: WNL, Intact Timoteo: 17 Diet Order: Chopped, LOI Estimated Energy Needs: ( Geriatric, CBW) 0776-3369 kcals (25-30 kcals/ kg) 60-75g Pro (1.0-1.2 g/kg) 8217-0688 ml (25-30 ml/kg) Current Diet Order/ Nutrition Support Chopped, LOI Pertinent Medications Maalox (PRN), Synthroid, MOM ( PRN), Lopressor Pertinent Labs 01/20: A1C 6.1%, Glucose 119, K 3.2, T Pro 6.0 Nutritional Hx/Data Height 1.63 m Height (Calculated Centimeters) 162.6 Current Weight (lbs) 62.142 kg Weight (Calculated Kilograms) 62.1 Weight (Calculated Grams) 43085.2 [place] Body Weight 120 LB % [place] Body Weight 113 Body Mass Index (BMI) 23.5 Weight Status Approriate GI Symptoms GI Symptoms None Last BM 01/24 x4 Skin Integrity/Comment: Skin: WNL, Intact Timoteo: 17 Current %PO Good (75-100%) Estimated Nutritional Goals BEE in Kcals: Using Current wt Calories/Kcals/Kg 25-30 Kcals Calculated 4473-3843 Protein: Using Current wt Protein g/k.0-1.2 Protein Calculated 60-75 Fluid: ml 2795-3183 ml (25-30 ml/kg) Nutritional Problem 1. Problem Problem Altered nutrition-related lab values Etiology related to endocrinopathy Signs/Symptoms: as evidenced by labs (01/20 A1C 6.1%). Malnutrition Related to Morbid Obesity Malnutrition related to morbid obesity No Intervention/Recommendation Comments Continue Chopped, LOI diet as tolerated. Expected Outcomes/Goals Expected Outcomes/Goals 1.PO intake to continue to meet 75% of estimated nutritional needs. 2.Monitor PO intake, wt, nutrition related labs, and skin integrity. 3.F/U as low risk in 7-10 days , 02/01-02/04.
[2020-02-21] MEDS: Levothyroxine 0.1 Mg Tab PO SCH (06:32)
--- NOTE | 2020-02-21 11:40 | Progress Notes ---
DATE: 02/20/[address] Shipley. Nursing staff reported that she continues to respond. Today on [id number] evaluation, pacing in and out of her room, when attempting to redirect and help with her symptoms, she becomes more agitated with her hands off me. MENTAL STATUS EXAMINATION: Irritable, agitated, responding, derailed in conversation, disorganized thought process, very ____ responding, thought blocking. ASSESSMENT AND PLAN: Schizoaffective, depressive type. We will continue with the recent augmentation by primary team of the [facility] 3 times a day. JOB# [id number]
--- NOTE | 2020-02-21 22:54 | Progress Notes ---
DATE: 02/21/2020 SUBJECTIVE: Today on [id number] evaluation, the patient is responding heavily talking about Violetta, Violetta and when I attempting to interrupt her to further evaluate, the patient becomes verbally aggressive ____. MENTAL STATUS EXAMINATION: Although, continues to respond, slightly disorganized, redirectable. ASSESSMENT AND PLAN: Chronically ill ____ redirectable. Continue with the recent increase of medication. Continue ____. [facility]# [id number]
[2020-02-22] MEDS: Levothyroxine 0.1 Mg Tab PO SCH (06:49)
--- NOTE | 2020-02-22 07:04 | General Progress Note ---
Subjective - Review of Systems Service Date: 02/21/20 Subjective: Awake, Alert, no acute distress. Vitals stable T 98.3 P 82 R 20 BP 132/70 Objective - Physical Exam Vitals and I&O: Vital Signs Temp 0 F 02/22/20 06:37 Pulse 65 02/21/20 16:10 Resp 20 02/21/20 08:00 BP 154/92 02/21/20 16:10 Pulse Ox 97 02/17/20 15:11 Intake & Output 02/21/20 02/22/20 02/22/20 18:59 06:59 18:59 Intake Total 800 240 Balance 800 240 Intake: Oral 800 240 Other: # Voids 4 3 # Bowel Movements 0 0 Active Medications: Current Medications Acetaminophen (Tylenol) 650 mg PO Q4H PRN PRN Reason: Pain (Mild 1-3) Stop: 03/22/20 00:51 Al Hydrox/Mg Hydrox/Simethicone (Maalox) 30 ml PO Q4HR PRN PRN Reason: GI DISTRESS Stop: 03/22/20 00:51 Amlodipine Besylate (Norvasc) 5 mg PO DAILY EARLINE Stop: 03/29/20 08:59 Last Admin: 02/21/20 09:44 Dose: 5 mg Levothyroxine Sodium (Synthroid) 0.1 mg PO QDAC EARLINE Stop: 03/23/20 07:29 Last Admin: 02/22/20 06:49 Dose: Not Given Lorazepam (Ativan) 0.5 mg PO Q4HR PRN; Protocol PRN Reason: Agitation Stop: 04/13/20 14:16 Last Admin: 02/20/20 08:38 Dose: 0.5 mg Magnesium Hydroxide (Milk Of Magnesia) 30 ml PO HS PRN PRN Reason: Constipation Metoprolol Tartrate (Lopressor) 25 mg PO BID EARLINE Stop: 03/22/20 08:59 Last Admin: 02/21/20 16:10 Dose: 25 mg Olanzapine (Zyprexa) 10 mg PO DAILY EARLINE; Protocol Stop: 03/22/20 12:44 Last Admin: 02/21/20 09:42 Dose: 10 mg Olanzapine 10 mg/ Olanzapine (15 mg) 25 mg PO HS EARLINE Stop: 04/18/20 20:59 Trazodone HCl (Desyrel) 50 mg PO HS EARLINE; Protocol Stop: 03/30/20 20:59 Last Admin: 02/21/20 21:00 Dose: Not Given Valproate Sodium (Depakene) 250 mg PO TID EARLINE; Protocol Stop: 04/09/20 13:59 Last Admin: 02/21/20 20:36 Dose: 250 mg General: Alert, No acute distress HEENT: Atraumatic, PERRLA Neck: Supple Cardiovascular: Regular rate, Normal S1, Normal S2 Lungs: Clear to auscultation Abdomen: Bowel sounds, Soft Extremities: no Clubbing, no Cyanosis, no Edema Neurological: Normal gait Assessment/Plan - Assessment Assessment: psychosis htn stable hypothyroidism unsteady gait cognitive communication deficit dementia schizophrenia schizoaffective disorder - Plan Plan: will admit to [facility] for further evaluation and treatment continue current treatment add clonidine prn start norvasc 5mg po daily Nutritional Asmnt/Malnutr-PDOC - Dietary Evaluation Malnutrition Findings (Please click <Entered> for more info): Nutritional Asmnt/Malnutrition Start: 01/26/20 14: 36 Text: Status: Complete Freq: Protocol: Document 01/26/20 14:36 SHALOM (Rec: 01/26/20 14:51 SHALOM [id number]) Nutritional Asmnt/Malnutrition Patient General Information Nutritional Screening Low Risk Diagnosis Psychosis Pertinent Medical Hx/Surgical Hx Hypothyroidism, lack of coordination, hypertension, unsteady on feet. Subjective Information Pt is a 74-year-old female admitted on d/t agitation, irritability, and aggressive behavior. Pt is eating an estimated 77% of meals Per Meal/Nutrition Activity Record. Dietary is currently providing an estimated 2300 kcals and 106 gm Pro, per Pt PO intake this is providing an estimated 1770 kcals and 82 gm Pro to meet 100+% kcal and 100+% Pro needs . Per Meal/Nutrition Activity report, pt. refused breakfast and lunch 01/24 but ate 100% of dinner. Per nurse Negin note (01/24), pt. also refused medication and was noted with non-directable behavior, hyperverbal and confused Pt s refusal of meals morning of 01/24 possibly related to notes paranoid behavior. Pt was asleep in room at time of visit. Christy seen pt roaming the halls in passing, very active and talkative. Anthropometrics HT: 54 WT: 136 LB (61.81 kg) BMI: 23.49 (Normal) GI/ Skin Integrity GI: WNL, Soft, Flat, Non- tender BM: 01/24 x4 I/O: 1520/Not Noted Skin: WNL, Intact Timoteo: 17 Diet Order: Chopped, LOI Estimated Energy Needs: ( Geriatric, CBW) 2084-6750 kcals (25-30 kcals/ kg) 60-75g Pro (1.0-1.2 g/kg) 6664-3570 ml (25-30 ml/kg) Current Diet Order/ Nutrition Support Chopped, LOI Pertinent Medications Maalox (PRN), Synthroid, MOM ( PRN), Lopressor Pertinent Labs 01/20: A1C 6.1%, Glucose 119, K 3.2, T Pro 6.0 Nutritional Hx/Data Height 1.63 m Height (Calculated Centimeters) 162.6 Current Weight (lbs) 62.142 kg Weight (Calculated Kilograms) 62.1 Weight (Calculated Grams) 14953.2 [place] Body Weight 120 LB % [place] Body Weight 113 Body Mass Index (BMI) 23.5 Weight Status Approriate GI Symptoms GI Symptoms None Last BM 01/24 x4 Skin Integrity/Comment: Skin: WNL, Intact Timoteo: 17 Current %PO Good (75-100%) Estimated Nutritional Goals BEE in Kcals: Using Current wt Calories/Kcals/Kg 25-30 Kcals Calculated 9769-5825 Protein: Using Current wt Protein g/k.0-1.2 Protein Calculated 60-75 Fluid: ml 6923-0457 ml (25-30 ml/kg) Nutritional Problem 1. Problem Problem Altered nutrition-related lab values Etiology related to endocrinopathy Signs/Symptoms: as evidenced by labs (01/20 A1C 6.1%). Malnutrition Related to Morbid Obesity Malnutrition related to morbid obesity No Intervention/Recommendation Comments Continue Chopped, LOI diet as tolerated. Expected Outcomes/Goals Expected Outcomes/Goals 1.PO intake to continue to meet 75% of estimated nutritional needs. 2.Monitor PO intake, wt, nutrition related labs, and skin integrity. 3.F/U as low risk in 7-10 days , 02/01-02/04.
--- NOTE | 2020-02-22 07:06 | General Progress Note ---
Subjective - Review of Systems Service Date: 02/22/20 Subjective: Awake, Alert, no acute distress. Vitals stable T 98.3 P 65 R 20 BP 154/92 Objective - Physical Exam Vitals and I&O: Vital Signs Temp 0 F 02/22/20 06:37 Pulse 65 02/21/20 16:10 Resp 20 02/21/20 08:00 BP 154/92 02/21/20 16:10 Pulse Ox 97 02/17/20 15:11 Intake & Output 02/21/20 02/22/20 02/22/20 18:59 06:59 18:59 Intake Total 800 240 Balance 800 240 Intake: Oral 800 240 Other: # Voids 4 3 # Bowel Movements 0 0 Active Medications: Current Medications Acetaminophen (Tylenol) 650 mg PO Q4H PRN PRN Reason: Pain (Mild 1-3) Stop: 03/22/20 00:51 Al Hydrox/Mg Hydrox/Simethicone (Maalox) 30 ml PO Q4HR PRN PRN Reason: GI DISTRESS Stop: 03/22/20 00:51 Amlodipine Besylate (Norvasc) 5 mg PO DAILY EARLINE Stop: 03/29/20 08:59 Last Admin: 02/21/20 09:44 Dose: 5 mg Levothyroxine Sodium (Synthroid) 0.1 mg PO QDAC EARLINE Stop: 03/23/20 07:29 Last Admin: 02/22/20 06:49 Dose: Not Given Lorazepam (Ativan) 0.5 mg PO Q4HR PRN; Protocol PRN Reason: Agitation Stop: 04/13/20 14:16 Last Admin: 02/20/20 08:38 Dose: 0.5 mg Magnesium Hydroxide (Milk Of Magnesia) 30 ml PO HS PRN PRN Reason: Constipation Metoprolol Tartrate (Lopressor) 25 mg PO BID EARLINE Stop: 03/22/20 08:59 Last Admin: 02/21/20 16:10 Dose: 25 mg Olanzapine (Zyprexa) 10 mg PO DAILY EARLINE; Protocol Stop: 03/22/20 12:44 Last Admin: 02/21/20 09:42 Dose: 10 mg Olanzapine 10 mg/ Olanzapine (15 mg) 25 mg PO HS EARLINE Stop: 04/18/20 20:59 Trazodone HCl (Desyrel) 50 mg PO HS EARLINE; Protocol Stop: 03/30/20 20:59 Last Admin: 02/21/20 21:00 Dose: Not Given Valproate Sodium (Depakene) 250 mg PO TID EARLINE; Protocol Stop: 04/09/20 13:59 Last Admin: 02/21/20 20:36 Dose: 250 mg General: Alert, No acute distress HEENT: Atraumatic, PERRLA Neck: Supple Cardiovascular: Regular rate, Normal S1, Normal S2 Lungs: Clear to auscultation Abdomen: Bowel sounds, Soft Extremities: no Clubbing, no Cyanosis, no Edema Neurological: Normal gait Assessment/Plan - Assessment Assessment: psychosis htn slightly elevated hypothyroidism unsteady gait cognitive communication deficit dementia schizophrenia schizoaffective disorder - Plan Plan: will admit to [facility] for further evaluation and treatment continue current treatment add clonidine prn start norvasc 5mg po daily Nutritional Asmnt/Malnutr-PDOC - Dietary Evaluation Malnutrition Findings (Please click <Entered> for more info): Nutritional Asmnt/Malnutrition Start: 01/26/20 14: 36 Text: Status: Complete Freq: Protocol: Document 01/26/20 14:36 SHALOM (Rec: 01/26/20 14:51 SHALOM [id number]) Nutritional Asmnt/Malnutrition Patient General Information Nutritional Screening Low Risk Diagnosis Psychosis Pertinent Medical Hx/Surgical Hx Hypothyroidism, lack of coordination, hypertension, unsteady on feet. Subjective Information Pt is a 74-year-old female admitted on d/t agitation, irritability, and aggressive behavior. Pt is eating an estimated 77% of meals Per Meal/Nutrition Activity Record. Dietary is currently providing an estimated 2300 kcals and 106 gm Pro, per Pt PO intake this is providing an estimated 1770 kcals and 82 gm Pro to meet 100+% kcal and 100+% Pro needs . Per Meal/Nutrition Activity report, pt. refused breakfast and lunch 01/24 but ate 100% of dinner. Per nurse Negin note (01/24), pt. also refused medication and was noted with non-directable behavior, hyperverbal and confused Pt s refusal of meals morning of 01/24 possibly related to notes paranoid behavior. Pt was asleep in room at time of visit. Christy seen pt roaming the halls in passing, very active and talkative. Anthropometrics HT: 54 WT: 136 LB (61.81 kg) BMI: 23.49 (Normal) GI/ Skin Integrity GI: WNL, Soft, Flat, Non- tender BM: 01/24 x4 I/O: 1520/Not Noted Skin: WNL, Intact Timoteo: 17 Diet Order: Chopped, LOI Estimated Energy Needs: ( Geriatric, CBW) 2173-4697 kcals (25-30 kcals/ kg) 60-75g Pro (1.0-1.2 g/kg) 7011-0927 ml (25-30 ml/kg) Current Diet Order/ Nutrition Support Chopped, LOI Pertinent Medications Maalox (PRN), Synthroid, MOM ( PRN), Lopressor Pertinent Labs 01/20: A1C 6.1%, Glucose 119, K 3.2, T Pro 6.0 Nutritional Hx/Data Height 1.63 m Height (Calculated Centimeters) 162.6 Current Weight (lbs) 62.142 kg Weight (Calculated Kilograms) 62.1 Weight (Calculated Grams) 85695.2 [place] Body Weight 120 LB % [place] Body Weight 113 Body Mass Index (BMI) 23.5 Weight Status Approriate GI Symptoms GI Symptoms None Last BM 01/24 x4 Skin Integrity/Comment: Skin: WNL, Intact Timoteo: 17 Current %PO Good (75-100%) Estimated Nutritional Goals BEE in Kcals: Using Current wt Calories/Kcals/Kg 25-30 Kcals Calculated 1920-7041 Protein: Using Current wt Protein g/k.0-1.2 Protein Calculated 60-75 Fluid: ml 3122-6469 ml (25-30 ml/kg) Nutritional Problem 1. Problem Problem Altered nutrition-related lab values Etiology related to endocrinopathy Signs/Symptoms: as evidenced by labs (01/20 A1C 6.1%). Malnutrition Related to Morbid Obesity Malnutrition related to morbid obesity No Intervention/Recommendation Comments Continue Chopped, LOI diet as tolerated. Expected Outcomes/Goals Expected Outcomes/Goals 1.PO intake to continue to meet 75% of estimated nutritional needs. 2.Monitor PO intake, wt, nutrition related labs, and skin integrity. 3.F/U as low risk in 7-10 days , 02/01-02/04.
--- NOTE | 2020-02-22 14:19 | Discharge Summary ---
DATE OF DISCHARGE: 02/22/2020 IDENTIFYING INFORMATION: The patient is a 74-year-old female. CHIEF COMPLAINT: The patient is rambling. HISTORY OF PRESENT ILLNESS: The patient referred from [place] because of irritability, agitation and aggressive behavior. The patient was medically cleared at [facility]. The patient was medicated prior to coming here. The patient was uncooperative asking staff to leave her alone, tried talk to her, she was kept talking about [place], unable to give a coherent or participate in meaningful conversation with no history of being seen at [place] for the past 2 weeks. Medication has been adjusted twice in the past 2 weeks because of agitation, paranoia. The patient has a history of schizoaffective disorder, paranoid schizophrenia, and cognitive impairment, treated in the past for paranoid schizophrenia behavior disturbances, depression, and dementia. No known drug allergy. MEDICAL HISTORY: Hypothyroidism, lack of coordination, hypertension. Unsteady on her feet. Unable to give much information regarding her family history. COURSE IN THE HOSPITAL: The patient was started on Zyprexa, the dose was increased slowly over the course of her stay to 25 mg at bedtime. Depakote was added increased to 250 mg three times a day. She was continued on metoprolol 25 mg twice a day. Also, levothyroxine 0.1 mg daily, clonidine as needed, amlodipine 5 mg daily. The patient progressively got better. She was refusing medications at the beginning later she started taking it and she was selective at times not taking her medications. In general, she was doing better. She is less agitated. She became more cooperative. She was sleeping well, eating well , so as she improved, we felt she could be discharged to a lesser level of care. The patient has no known drug allergy. CONDITION ON DISCHARGE: The patient is appropriately dressed, not very well groomed. She was alert and oriented to place, person, time, and situation. No suicidal ideation, no homicidal ideation, no paranoia. The patient is able to take care of her ADLs. The patient able to function well socially. The patient is able to care for ADLs. FINAL DIAGNOSES: Schizoaffective disorder, cognitive disorder, not otherwise specified. MEDICAL DIAGNOSES: The patient will follow up with the patient there and Dr. Melo will follow up with her there. EXPECTED OUTCOME: Stable if the patient complies with the above. JOB# [id number] MILEY
[2020-02-23] MEDS: Levothyroxine 0.1 Mg Tab PO SCH (08:00)
--- NOTE | 2020-02-23 13:33 | Discharge Summary ---
DATE OF DISCHARGE: The patient was supposed to have been discharged yesterday; however, discharge was postponed because she get tested for covid 19 before she leaves. The patient is calmer. She is compliant with the medication with no side effects, no sedation, no nausea, no extrapyramidal symptoms. Easy to redirect, so if she get the tests, she can leave. Discharge diagnoses and plans are the same. The patient is able to function better. The patient is able to take care of her ADLs. JOB# [id number] MILEY
[2020-02-24] MEDS: Levothyroxine 0.1 Mg Tab PO SCH (07:18)
--- NOTE | 2020-02-24 12:10 | Discharge Summary ---
DATE OF DISCHARGE: ADDENDUM: Case was discussed with staff of the patient and reviewed records. Apparently, the patient is still here, still waiting for the COVID-19 results; however, she is still acting the same. She is sleeping well. She is eating well. She is compliant with her medication. No acting out behavior. No longer meeting criteria for inpatient treatment. So, discharge diagnosis and plan stay the same and the patient will be discharged to a lesser level of care. JOB# [id number]
[2020-02-24] MEDS: Haldol Oral Sol.(concentrate) 10 mg/5 mL Udc PO SCH (16:36)
[2020-02-25] MEDS: Levothyroxine 0.1 Mg Tab PO SCH (06:48)
[2020-02-25] MEDS: Haldol Oral Sol.(concentrate) 10 mg/5 mL Udc PO SCH ×2 (08:26→16:38)
--- NOTE | 2020-02-25 13:25 | Progress Notes ---
DATE: 02/25/2020 SUMMARY: Case was discussed with staff of the patient. This is an addendum to the discharge summary that was done yesterday on this patient. The patient will be discharged today. She got back COVID-19 results, it was negative I was told. The patient is doing well, doing the same. No side effects to medication, no sedation, no nausea. No suicidal or homicidal ideation. DISCHARGE DIAGNOSES: Stay the same like yesterday and the patient will be discharged to a lesser level of care. JOB# [id number]
[2020-02-26] MEDS: Levothyroxine 0.1 Mg Tab PO SCH (06:44)
[2020-02-26] MEDS: Haldol Oral Sol.(concentrate) 10 mg/5 mL Udc PO SCH ×2 (08:20→16:21)
--- NOTE | 2020-02-26 23:09 | Progress Notes ---
DATE: 02/26/2020 Case was discussed with staff of the patient, reviewed records. The patient continues to be rambling, but she is taking medication. Continues to be somewhat irritable, but the staff believes this is probably her best she can do at this basic level of function. We will try to find a placement. She was discharged 2 days ago, but however, she was not accepted yet. [facility] is not accepting patients because of COVID-19. The staff is trying to find another place. No side effects with the medication, no sedation, no nausea, no extrapyramidal symptoms. We will continue outpatient group therapy, milieu therapy, and adjust medications as needed. JOB# [id number]
[2020-02-27] MEDS: Levothyroxine 0.1 Mg Tab PO SCH (06:36)
[2020-02-27] MEDS: Haldol Oral Sol.(concentrate) 10 mg/5 mL Udc PO SCH ×2 (08:26→16:45)
--- NOTE | 2020-02-27 15:45 | Progress Notes ---
DATE: 02/27/[address] Quinten M.D. SUBJECTIVE: The patient was interviewed. Case was discussed with staff. Chart and records were reviewed. Per the staff, the patient has been slightly more cooperative today. She has been more compliant with her ADLs and her medications. On interview, she appears to be somewhat irritable and not really much cooperative during the interview. The patient needs at times redirection; however, tolerating her medications well, no side effects. The patient has no plan for self-care at this time. She was discharged; however, the patient had no placement options and unable to develop a plan for self-care by herself and needs staff assistance. MENTAL STATUS EXAMINATION: The patient is sitting in her wheelchair at bedside. She is irritable with limited cooperation. Mood and affect appear to be constricted. Thought process appears to be somewhat concrete. Unable to assess for any suicidal or homicidal thoughts. Appears to be somewhat internally preoccupied. Speech appears to be loud. No paranoia noted. Alert and oriented x 2. Insight, judgment and impulse control appear to be limited. ASSESSMENT AND PLAN: The patient requires ongoing hospitalization given no placement options and no plan for self-care. We will continue medications. No side effects have been noted. We will also encourage the patient to verbalize her needs and participate in group therapy and also attend to her hygiene. [facility]# [id number]
[2020-02-28] MEDS: Levothyroxine 0.1 Mg Tab PO SCH (06:41)
[2020-02-28] MEDS: Haldol Oral Sol.(concentrate) 10 mg/5 mL Udc PO SCH ×2 (08:41→16:33)
--- NOTE | 2020-02-28 19:58 | Progress Notes ---
DATE: 02/28/2020 Covering for Arlette Shipley M.D. SUBJECTIVE: The patient was interviewed. Case was discussed with staff. Chart and records were reviewed. The patient continues to slightly improve. Her sleep is improved, sleeping about 7-1/2 hours last night, but she continues to have disorganized thinking, easily agitated, needs redirection, suspicious and guarded in her room, refusing vital signs. The patient is poorly cooperative with the interview this morning, appears to be quite irritable and hygiene appears to be somewhat limited. Otherwise, the patient has no placement options at this time and has no plan for self-care. MENTAL STATUS EXAMINATION: The patient is sitting in her wheelchair at bedside, irritable, uncooperative, somewhat concrete thinking. Unable to assess for suicidal or homicidal thoughts. Appears to be somewhat internally preoccupied and paranoid. Alert and oriented x2. Insight, judgment and impulse control appear to be limited. ASSESSMENT AND PLAN: The patient requires ongoing acute psychiatric hospitalization given her mood symptoms and also no plan for self-care. No options for placement at this time. We will continue medications as prescribed. No side effects have been noted. We will encourage the patient to verbalize needs and participate in groups. JOB# [id number]
[2020-02-29] MEDS: Levothyroxine 0.1 Mg Tab PO SCH (06:43)
[2020-02-29] MEDS: Haldol Oral Sol.(concentrate) 10 mg/5 mL Udc PO SCH ×2 (09:55→17:44)
--- NOTE | 2020-02-29 20:23 | Progress Notes ---
DATE: 02/29/2020 Case was discussed with staff of the patient, reviewed records. The patient continues to be awaiting placement. I discharged her last week; however, she continues to be here because of COVID-19. [facility] is unable to accept her. The patient continues to have somewhat poor insight. However, in general, she does take her medication. No side effects of the medication, no sedation, no nausea, no extrapyramidal symptoms, trying to find a different place to take her and she sometimes refuses vital signs, continues somewhat disorganized, not cooperative sometimes. She believes her psychiatrist in [place], not here. No side effects with the medication, no sedation, no nausea, no extrapyramidal symptoms. We will continue outpatient group therapy, milieu therapy, and adjust medications as needed. JOB# [id number]
[2020-03-01] MEDS: Levothyroxine 0.1 Mg Tab PO SCH (06:40)
[2020-03-01] MEDS: Haldol Oral Sol.(concentrate) 10 mg/5 mL Udc PO SCH ×2 (08:11→16:12)
--- NOTE | 2020-03-01 12:17 | Progress Notes ---
DATE: 03/01/2020 Case was discussed with staff of the patient, reviewed records. The patient has been taking the medication. We are still waiting on placement for her. She was tested for COVID-19. Results are pending. Continues to have poor insight. Continues to be unpredictable, impulsive; however, I think this is her basic level of functioning. She will be going to a nursing facility when they approve her. No side effects with the medication, no sedation, no nausea, no extrapyramidal symptoms. She sleeps well. She eats well. She is able to take care of herself. She is able to feed herself. She can make her needs known. We will continue outpatient group therapy, milieu therapy, and adjust medications as needed. JOB# [id number]
[2020-03-02] MEDS: Levothyroxine 0.1 Mg Tab PO SCH (06:41)
[2020-03-02] MEDS: Haldol Oral Sol.(concentrate) 10 mg/5 mL Udc PO SCH ×2 (08:32→16:24)
--- NOTE | 2020-03-02 16:34 | Progress Notes ---
DATE: 03/02/2020 Case was discussed with staff of the patient, reviewed records. The patient is much more pleasant today. She has been compliant with the medications. She is sleeping well, eating well. She was cleared to leave since last week, but she is still here. She is compliant with the medication with no side effects, no sedation, no nausea, no extrapyramidal symptoms. Working on sending her to a nursing facility; however [facility] cannot take her now, they have a lot of coronavirus and no side effects with the medication, no sedation, no nausea, no extrapyramidal symptoms. We will continue outpatient group therapy, milieu therapy, adjust medication as needed. JOB# [id number]
[2020-03-03] MEDS: Levothyroxine 0.1 Mg Tab PO SCH (06:46)
[2020-03-03] MEDS: Haldol Oral Sol.(concentrate) 10 mg/5 mL Udc PO SCH ×2 (08:14→16:18)
[2020-03-04] MEDS: Levothyroxine 0.1 Mg Tab PO SCH (06:52)
[2020-03-04] MEDS: Haldol Oral Sol.(concentrate) 10 mg/5 mL Udc PO SCH ×2 (09:25→16:58)
--- NOTE | 2020-03-04 16:30 | Progress Notes ---
DATE: 03/04/2020 The patient was supposed to have been discharged yesterday. The patient was not discharged because [facility] is not willing to take any patient because they have COVID-19 positive patients there. The patient is stable. She is ready to go to a lesser level of care, but we cannot let her go because we have no placement for her. She cannot go to the streets, unable to make safe plan for her self-care. She is sleeping well, eating well, compliant with the medication with no side effects, no sedation, no nausea, no extrapyramidal symptoms. We will continue outpatient group therapy, milieu therapy, and adjust medications as needed. JOB# [id number]
[2020-03-05] MEDS: Levothyroxine 0.1 Mg Tab PO SCH (06:43)
[2020-03-05] MEDS: Haldol Oral Sol.(concentrate) 10 mg/5 mL Udc PO SCH ×2 (08:53→16:47)
--- NOTE | 2020-03-05 16:15 | Progress Notes ---
DATE: SUBJECTIVE: The patient was seen, chart reviewed, and discussed with staff. The patient currently is denying any suicidal or homicidal ideations. Has been responsive to redirections and compliant with medications. The patient is currently awaiting placement due to being unable to take care of herself and her old facility testing positive for COVID-19. PLAN: The patient to continue on administrative days, awaiting placement. We will follow up on a daily basis. [facility]# [id number]
[2020-03-06] MEDS: Levothyroxine 0.1 Mg Tab PO SCH (06:48)
[2020-03-06] MEDS: Haldol Oral Sol.(concentrate) 10 mg/5 mL Udc PO SCH ×2 (08:03→16:57)
--- NOTE | 2020-03-06 16:13 | Progress Notes ---
DATE: SUBJECTIVE: The patient was seen, chart reviewed, and discussed with staff. The patient currently on administrative days, awaiting placement. She has been compliant with medications, denying any undue side effects, responsive towards redirections. PLAN: The patient is currently on administrative days, awaiting placement. We will follow up on a daily basis and titrate medications as needed. JOB# [id number]
[2020-03-07] MEDS: Levothyroxine 0.1 Mg Tab PO SCH (06:43)
[2020-03-07] MEDS: Haldol Oral Sol.(concentrate) 10 mg/5 mL Udc PO SCH ×2 (08:46→16:08)
--- NOTE | 2020-03-08 00:36 | Progress Notes ---
DATE: 03/07/2020 FOLLOWUP PROGRESS NOTE Case was discussed with staff of the patient, reviewed records. The patient has been stable. She is easy to talk to. She is sleeping better, eating better, compliant with the medication with no side effects, no sedation, no nausea and no extrapyramidal symptoms. Working on discharge plan. Apparently, [facility] cannot take her because of a lot of patients with COVID-19, trying to see if there is any other place would take her ____ will take her. No side effects with the medication, no sedation, no nausea, no extrapyramidal symptoms. We will continue to work with the patient in group therapy, milieu therapy, and adjust the medications as needed. JOB# [id number]
[2020-03-08] MEDS: Levothyroxine 0.1 Mg Tab PO SCH (06:43)
[2020-03-08] MEDS: Haldol Oral Sol.(concentrate) 10 mg/5 mL Udc PO SCH ×2 (09:02→17:02)
--- NOTE | 2020-03-08 18:55 | Progress Notes ---
DATE: 03/08/2020 SUBJECTIVE: Case was discussed with staff of the patient, reviewed records. The patient states since his stay to herself, confused, does have a sense of confusion and being somewhat delusional; however, in general, she is doing better, she is sleeping well, eating well. She is compliant with the medication with no side effects, no sedation, no nausea, no extrapyramidal symptoms. Continues to be unable to make safe plan for self-care. No side effects from the medication, no sedation, no nausea, no extrapyramidal symptoms. We will continue outpatient group therapy, milieu therapy, and adjust medication as needed. JOB# [id number]
[2020-03-09] MEDS: Levothyroxine 0.1 Mg Tab PO SCH (06:46)
--- NOTE | 2020-03-09 08:22 | Progress Notes ---
DATE: 03/09/2020 discharge Addendum Case was discussed with staff of the patient, reviewed records. The patient is awaiting placement. I have tried to discharge her many times before; however, the [facility] is not willing to take her. No other place is taking her. She is compliant with the medication with no side effects. She mostly stays to herself. She is not as irritable as she was. She seems to have reached her basic level of functioning and waiting on placement for her. No side effects with the medication, no sedation, no nausea, no extrapyramidal symptoms and she is currently stable. she was accepted to [facility] ,will be discharged today ,dicharge plans and diagnosis are the same as in Discharge summary JOB# [id number] [place]
[2020-03-09] MEDS: Haldol Oral Sol.(concentrate) 10 mg/5 mL Udc PO SCH ×2 (08:51→16:21)
== END 2020-03-09 17:20 | disposition home or self-care (01) | DRG 885 ==
LOC: GERO 20:35
PROVIDERS: ADMIT Psychiatry & Neurology Psychiatry; ATTEND Psychiatry & Neurology Psychiatry
DX: F25.9 Schizoaffective disorder, unspecified (principal); F29 Unspecified psychosis not due to a substance or known physiological condition; F03.90 Unspecified dementia, unspecified severity, without behavioral disturbance, psychotic disturbance, mood disturbance, and anxiety; R26.81 Unsteadiness on feet; E03.9 Hypothyroidism, unspecified; I10 Essential (primary) hypertension; R41.841 Cognitive communication deficit; Z20.828 Contact with and (suspected) exposure to other viral communicable diseases
CPT/HCPCS: 83036-90; 90899; G0410; J1200; J1630; J7051; U0003-CS; Z7610